=== PATIENT | male | born 1965 | race Caucasian/White ===

== ENCOUNTER 2022-01-19 06:49 | Observation (INO) | payer BC, SELFPAY ==
[2022-01-19] VITALS (9 sets, daily range): BP systolic 139–175; BP diastolic 48–113; PULSE 65–80; RESP 16–18; TEMP 36.3–36.8; O2SAT 78–99; BMI 27.6
--- NOTE | 2022-01-19 07:06 | CT_ITS ---
STUDY: CT ABDOMEN AND PELVIS WITHOUT CONTRAST REASON FOR EXAM: Male, 57 years old. SUDDEN ONSET LLQ PAIN THIS AM RADIATION DOSAGE (If Supplied By Facility): CTDIvol = ( 8.44 ) mGy, DLP = ( 427.95 ) mGycm TECHNIQUE: Transaxial images were obtained from the dome of the diaphragm to the symphysis pubis without oral contrast, and without intravenous contrast. Sagittal and coronal images were reconstructed. Individualized dose optimization techniques were used for this CT. COMPARISON: None. FINDINGS: The visualized lung bases are unremarkable. The visualized portions of the heart are within normal limits. Subcentimeter hepatic simple cysts. No required imaging follow-up needed given high likelihood of benign nature. Normal gallbladder and extrahepatic biliary system. There are multiple benign calcified granulomata of the spleen. Normal pancreas. Normal bilateral adrenal glands. Mild left hydronephrosis with a mid ureter calculus measuring 7.0 mm (image 71 series 701). There is also a 3.4 mm calcification in region of the distal left ureter (image 147 series 2). There are bilateral punctate renal calculi. No perinephric fluid collection. Normal visualized stomach. Normal small intestine. Normal colon. The appendix is visualized and appears normal. There is diffuse atherosclerotic calcification of the abdominal aorta, without a demonstrated aneurysm. There is fusiform aneurysmal enlargement of the the left (2.2 cm) more than right (2.3 cm) common iliac arteries. Normal inferior vena cava. Normal retroperitoneum. Normal urinary bladder. Normal abdominal wall. There are diffuse degenerative changes of the visualized lumbar spine. CT/Abdomen/Pelvis without Cont IMPRESSION: 1. Left mid ureter calculus (7 mm) with hydronephrosis. Possible additional 3.4 mm distal left ureteral calculus. Bilateral nephrolithiasis. 2. Bilateral common iliac artery aneurysms without evidence of rupture. Electronically Signed: Milan Cason MD ([place]) at 8:04 EDT ,
--- NOTE | 2022-01-19 07:07 | ED.VIS.GI ---
HPI HPI - GI History of Present Illness Chief Complaint: Abd Pain Detail of Chief Complaint: Dominant pain that started this morning around 4:30 AM Informant: patient Abdominal Pain/Flank Pain Current Severity: 06/10 Narrative Narrative: Patient presents to the emergency department complaint of abdominal pain that started around 4:30 AM this morning. Patient states it woke him up from sleep. He denies nausea or vomiting. He denies urinary symptoms. He denies hematuria. He is not had prior pain like this. No history of kidney stones. He has not done any lifting or straining. Denies pain radiating to his back and describes it more as left lower quadrant. Patient went to bed feeling fine. Prior similar symptoms: No PFSH PFSH Home Medications atenolol [Tenormin] 50 mg PO DAILY 04/06/16 [History Last Taken Unknown] simvastatin 20 mg PO DAILY 04/06/16 [History Last Taken Unknown] hydrochlorothiazide 25 mg DAILY 01/19/22 [History Last Taken Unknown] pantoprazole 40 mg PO DAILY 01/19/22 [History Last Taken Unknown] Allergy/AdvReac Type Severity Reaction Status Date / Time No Known Allergies Allergy Verified 04/06/16 13:25 Social History Smoking Status: Current every day smoker tobacco type: cigarettes ROS ROS ED Constitutional Constitutional ED: Reports systems reviewed and no addt'l complaints, except as documented; Denies body ache(s), change in weight or chills Eyes Eyes: Denies acute decrease in peripheral vision, change in vision, double vision or loss of vision ENT ENT ED: Reports none; Denies ear pain, lip swelling, loss taste/smell, neck pain, otalgia or sore throat Cardiovascular Cardiovascular: Reports none; Denies abdominal pain, chest pain with activity, leg edema, lightheadedness, palpitations, rapid heart rate or syncope Respiratory/Chest Respiratory/Chest: Reports none; Denies change in mental status, dry cough, dyspnea, hemoptysis, shortness of breath at rest or shortness of breath with exertion Gastrointestinal Gastrointestinal: Reports none and abdominal pain; Denies change in stool character, diarrhea, hematemesis, hematochezia, melena, rectal bleeding or vomiting Genitourinary Genitourinary ED: Reports none; Denies abdominal discomfort, anuria, dysuria, genital pain or polyuria Musculoskeletal Musculoskeletal: Reports none; Denies arthralgias, back pain, difficulty walking, extremity pain, muscle weakness or myalgias Integumentary Reports none; Denies abscess or rash Neurologic Neurologic: Reports none; Denies abnormal gait, confusion, focal weakness, frequent falls, headache(s), loss of vision, numbness, paresthesias, radicular pain, vertigo or weakness Psychiatric Psychiatric: Reports systems reviewed and no addt'l complaints, except as documented and none; Denies behavioral changes, confusion, difficulty concentrating, hallucinations, suicidal ideation, tactile hallucinations or visual hallucinations Endocrine Endocrinology: Denies none, cold intolerance, excessive sweating, fatigue or heat intolerance Hematologic/Lymphatic Hematologic/Lymphatic: Reports none; Denies anemia, easy bleeding or easy bruising Allergic/Immunologic Allergic/Immunologic ED: Denies as per HPI, none, lip swelling, mouth swelling, throat swelling, tongue swelling or hives EXAM Physical Exam Const Vital Signs: 01/19/22 06:50 01/19/22 09:14 Temperature 97.4 F L Temperature Source Temporal Pulse Rate 80 72 Respiratory Rate 17 16 Blood Pressure 175/113 H 139/48 H Blood Pressure Mean 133 78 Pulse Ox 97 97 Oxygen Delivery Method Room Air Room Air Positive well nourished and well developed General Appearance ED: well developed and NAD HEENT Reports TM's clear and moist mucous membranes normocephalic and atraumatic; Negative for trauma or tenderness Tympanic Membrane ED: Yes TM's clear Eyes PERRL and EOMs intact bilaterally General Eye ED: Negative for pale conjunctiva or scleral icterus Neck no lymphadenopathy, supple and no JVD General: Negative for tenderness Chest Wall inspection of chest normal and palpation of chest normal Chest: Negative for tenderness Resp normal respiratory effort and clear to auscultation bilaterally Effort and Inspection: Negative for respiratory distress or pain with movement Auscultation: Negative for rhonchi, wheezes or diminished lung sounds Cardio regular rate, regular rhythm, S1 normal heart sound, S2 normal heart sound and no murmurs Peripheral Pulses: pulses 2+ throughout GI normal to inspection, nondistended, normoactive bowel sounds, soft to palpation, non-distended and no masses GI Narrative: Patient has tenderness palpation over the left lower abdomen into the left pelvis. No hernias palpated. Patient has guarding. There is no rebound, rigidity, peritoneal signs. Palpation: tender Back/Spine no CVA tenderness and no thoracic nor lumbar tenderness Extremity normal to inspection General Extremety ED: Negative for edema General Extremity: Negative for edema Neuro oriented x3, CN's II-XII intact bilaterally, no sensory deficits noted and gait normal Sensorium / Orientation: awake, alert, oriented to person, oriented to place and oriented to time Motor Exam: strength 5/5 throughout and strength abnormal Psych mental status grossly normal Skin no rashes or lesions noted and no wounds MDM MDM MDM Narrative Medical decision making narrative: IV line established on arrival. Patient was medicated Dilaudid, Toradol, and Zofran. Patient had good pain relief with that. CT scan obtained showed 3.4 mm left UVJ stone as well as a 7 mm left mid ureter stone. Case was discussed with urologist who will admit patient for definitive care. Lab Data Attestation: I reviewed the patient's lab results. Labs: Laboratory Results - last 24 hr 01/19/22 01/19/22 01/19/22 06:55 06:55 06:55 WBC 7.0 RBC 4.68 Hgb 15.2 Hct 43.0 MCV 91.9 MCH 32.5 H MCHC 35.3 RDW Std Deviation 45.6 H RDW Coeff of Hernandez 13.5 Plt Count 193 MPV 9.6 Immature Gran % (Auto) 0.400 Neut % (Auto) 65.8 Lymph % (Auto) 22.0 [place] % (Auto) 8.2 Eos % (Auto) 2.9 Baso % (Auto) 0.7 Absolute Neuts (auto) 4.6 Absolute Lymphs (auto) 1.53 Nucleated RBC % 0 Sodium 141 Potassium 3.4 L Chloride 106 Carbon Dioxide 27.0 Anion Gap 8 BUN 23 H Creatinine 0.93 Estim Creat Clear Calc 89.75 Est GFR (MDRD) Af Amer 109 Est GFR (MDRD) Non-Af 90 BUN/Creatinine Ratio 24.7 H Glucose 152 H Lactic Acid 1.4 Calcium 8.7 Urine Color Urine Clarity Urine pH Ur Specific [place] Urine Protein Urine Glucose (UA) Urine Ketones Urine Occult Blood Urine Nitrite Urine Bilirubin Urine Urobilinogen Ur Leukocyte Esterase Urine RBC Urine WBC Ur Squamous Epith Cells Urine Bacteria Urine Mucus 01/19/22 07:20 WBC RBC Hgb Hct MCV MCH MCHC RDW Std Deviation RDW Coeff of Hernandez Plt Count MPV Immature Gran % (Auto) Neut % (Auto) Lymph % (Auto) [place] % (Auto) Eos % (Auto) Baso % (Auto) Absolute Neuts (auto) Absolute Lymphs (auto) Nucleated RBC % Sodium Potassium Chloride Carbon Dioxide Anion Gap BUN Creatinine Estim Creat Clear Calc Est GFR (MDRD) Af Amer Est GFR (MDRD) Non-Af BUN/Creatinine Ratio Glucose Lactic Acid Calcium Urine Color Yellow Urine Clarity Clear Urine pH 6.0 Ur Specific [place] 1.025 Urine Protein 30 H Urine Glucose (UA) Normal Urine Ketones 5 H Urine Occult Blood 150 H Urine Nitrite Negative Urine Bilirubin Negative Urine Urobilinogen 1 H Ur Leukocyte Esterase Negative Urine RBC 5-10 SEEN Urine WBC 0 SEEN Ur Squamous Epith Cells 0 SEEN Urine Bacteria 0 SEEN Urine Mucus 0 SEEN Radiography Diagnostic Testing: Clinical Impression(s) from Imaging Studies Abdomen/Pelvis CT 01/19/22 07:06 IMPRESSION: 1. Left mid ureter calculus (7 mm) with hydronephrosis. Possible additional 3.4 mm distal left ureteral calculus. Bilateral nephrolithiasis. 2. Bilateral common iliac artery aneurysms without evidence of rupture. Electronically Signed: Milan Cason MD (Bro[place]) at 8:04 EDT Reading Location ID and State: [facility] / [place] , Service support , Discharge Plan Triage Chief Complaint: Abd Pain ED Provider: Jose Santiago Dx/Rx/DC Orders Prescriptions: No Action simvastatin 20 MG tablet 20 mg PO DAILY RF: 0 atenolol [Tenormin] 50 MG tablet 50 mg PO DAILY RF: 0 pantoprazole 40 mg tablet,delayed release (DR/EC) 40 mg PO DAILY RF: 0 hydrochlorothiazide 25 mg tablet 25 mg DAILY RF: 0 Primary Care Provider: Delma Lopez
[2022-01-19] MEDS: 0.9% Normal Saline 1,000 ML 125 ML IV (07:20)
[2022-01-19] MEDS: Ketorolac 15 MG/ML Vial IV (07:21)
[2022-01-19] MEDS: Ondansetron 4 MG/2 ML Vial IV ×2 (07:21→23:28)
[2022-01-19] MEDS: HYDROmorphone 1 MG/ML Syringe IV (07:21)
[2022-01-19 07:22] LABS: Absolute Lymphocyte Count 1.53 X10^3/uL (0.83-4.51); Absolute Neutrophil Count 4.6 X10^3/uL (2.0-7.7); Basophil# 0.05 X10^3/uL; Basophil% 0.7 % (0-1); Eosinophils% 2.9 % (0-5); Hemoglobin 15.2 g/dL (13.0-16.5); Lymphocyte # 1.53 X10^3/ul (0.83-4.51); Mean Corp Hgb Conc 35.3 g/dL (32-36); Mean Corpuscular Hgb 32.5 pg (27.0-32.0); Mean Corpuscular Volume 91.9 fL (80-94); Mean Platelet Vol. 9.6 fl (6.2-12.0); Monocyte# 0.57 X10^3/uL; Monocyte% 8.2 % (0-10); NRBC Flagged by Analyzer 0 % (0-5); Neutrophil # 4.58 X10^3/uL (2.7-7.7); Neutrophil % 65.8 % (47-70); Platelet Count 193 K/mm3 (150-450); RBC Distribution Width CV 13.5 % (11.6-14.6); RBC Distribution Width SD 45.6 fl (35.1-43.9); Red Blood Count 4.68 M/mm3 (4.6-6.2)
[2022-01-19 07:26] LABS: Bacteria 0 SEEN /hpf (None Seen); Mucous, Urine 0 SEEN /hpf (<or=2+); Squamous Epithelial Cells - UA 0 SEEN /hpf (0-5); White Blood Cells 0 SEEN /hpf (0-5)
[2022-01-19 07:34] LABS: Color, Urine Yellow (Yellow); Glucose, Dipstick Normal (Normal); Ketone-Dipstick 5 mg/dl (Negative); Leukocyte Esterase-Dipstick Negative /ul (Negative); Nitrite-Dipstick Negative (Negative); Occult Blood-Urine 150 /ul (Negative); Protein-Dipstick 30 mg/dl (Negative); Specific Gravity, Urine 1.025 (1.002-1.030); Urine Bilirubin Dipstick Negative (Negative); Urine Clarity Clear (Clear); Urine Urobilinogen 1 mg/dl (Normal)
[2022-01-19 07:36] LABS: Anion Gap 8 (5-15); BUN 23 mg/dL (7-18); BUN/Creat Ratio 24.7 RATIO (10-20); Calcium,Total 8.7 mg/dL (8.5-10.1); Chloride 106 mmol/L (98-107); Creatinine, Serum 0.93 mg/dL (0.70-1.30); EST Glomerular Filtration Rate 90 mL/min (>60); Est Glom Filt Rate - Afr Amer 109 mL/min (>60); Estimated Creatinine Clearance 89.75 ml/min; Glucose 152 mg/dL (74-106); Potassium 3.4 mmol/L (3.5-5.1); Sodium Level 141 mmol/L (136-145)
[2022-01-19 07:41] LABS: Red Blood Cells-Urine 5-10 SEEN /hpf (0-5)
[2022-01-19 07:43] LABS: Lactic Acid 1.4 mmol/L (0.4-1.9)
--- NOTE | 2022-01-19 10:51 | EKG12_ITS ---
Test Reason : PREOP Blood Pressure : / mmHG Vent. Rate : 081 BPM Atrial Rate : 081 BPM P-R Int : 136 ms QRS Dur : 096 ms QT Int : 414 ms P-R-T Axes : 031 050 030 degrees QTc Int : 480 ms Normal sinus rhythm Prolonged QT Abnormal ECG Confirmed by NALDO CHAVEZ, TERRENCE ([id number]), state editor EVER TREJO ([id number]) on 01/23/2022 11:40:15 AM Referred By: KYM BARBOSA Confirmed By:TERRENCE HITCHCOCK MD
[2022-01-19] MEDS: 0.9% Normal Saline 1,000 ML 100 ML IV ×2 (11:45→21:55)
[2022-01-19] MEDS: 0.9% Saline Lock 10 ML Syringe IV ×2 (14:39→23:28)
[2022-01-19] MEDS: Morphine 2 MG/ML Syringe IV ×2 (14:39→23:28)
--- NOTE | 2022-01-19 17:34 | PCM.HP.STD ---
HPI - General General Date of Admission: 01/19/22 HPI Narrative REBA AARON, is a 57 M who presents with a large stone in the mid left ureter, patient admitted for pain control plan for surgery with left ESWL and stent tomorrow. PFSH Home Medications atenolol [Tenormin] 50 mg PO DAILY 04/06/16 [History Last Taken Unknown] simvastatin 20 mg PO DAILY 04/06/16 [History Last Taken Unknown] hydrochlorothiazide 25 mg DAILY 01/19/22 [History Last Taken Unknown] pantoprazole 40 mg PO DAILY 01/19/22 [History Last Taken Unknown] Allergy/AdvReac Type Severity Reaction Status Date / Time No Known Allergies Allergy Verified 04/06/16 13:25 Social History Smoking Status: Current every day smoker tobacco type: cigarettes Vital Signs Vital Signs Vital Signs: 01/19/22 06:50 01/19/22 09:14 01/19/22 09:43 Temperature 97.4 F L 97.4 F L Temperature Source Temporal Temporal Pulse Rate 80 72 72 Pulse Strength Respiratory Rate 17 16 16 Blood Pressure 175/113 H 139/48 H 139/48 H Blood Pressure Mean 133 78 78 Blood Pressure Source Blood Pressure Position Blood Pressure Location Pulse Ox 97 97 97 Oxygen Delivery Method Room Air Room Air Room Air 01/19/22 09:58 01/19/22 10:00 01/19/22 10:49 Temperature 98.1 F Temperature Source Oral Pulse Rate 74 77 Pulse Strength Normal (2+) Respiratory Rate 18 Blood Pressure 155/80 H Blood Pressure Mean 105 Blood Pressure Source Monitor Blood Pressure Position Semi-Fowlers Blood Pressure Location Right Arm Pulse Ox 99 Oxygen Delivery Method Room Air Room Air 01/19/22 14:43 Temperature 98.3 F Temperature Source Oral Pulse Rate 74 Pulse Strength Respiratory Rate 18 Blood Pressure 139/98 H Blood Pressure Mean 111 Blood Pressure Source Monitor Blood Pressure Position Semi-Fowlers Blood Pressure Location Right Arm Pulse Ox 99 Oxygen Delivery Method Room Air Weight Weight: 84.9 kg Body Mass Index (BMI) 27.6 Results Lab / Micro Data Result Diagrams: 01/19/22 06:55 01/19/22 06:55 Labs: Laboratory Results - last 24 hr 01/19/22 06:55: WBC 7.0, RBC 4.68, Hgb 15.2, Hct 43.0, MCV 91.9, MCH 32.5 H, MCHC 35.3, RDW Std Deviation 45.6 H, RDW Coeff of Hernandez 13.5, Plt Count 193, MPV 9.6, Immature Gran % (Auto) 0.400, Neut % (Auto) 65.8, Lymph % (Auto) 22.0, [place] % (Auto) 8.2, Eos % (Auto) 2.9, Baso % (Auto) 0.7, Absolute Neuts (auto) 4.6, Absolute Lymphs (auto) 1.53, Nucleated RBC % 0 01/19/22 06:55: Sodium 141, Potassium 3.4 L, Chloride 106, Carbon Dioxide 27.0, Anion Gap 8, BUN 23 H, Creatinine 0.93, Estim Creat Clear Calc 89.75, Est GFR (MDRD) Af Amer 109, Est GFR (MDRD) Non-Af 90, BUN/Creatinine Ratio 24.7 H, Glucose 152 H, Calcium 8.7 01/19/22 06:55: Lactic Acid 1.4 01/19/22 07:20: Urine Color Yellow, Urine Clarity Clear, Urine pH 6.0, Ur Specific [place] 1.025, Urine Protein 30 H, Urine Glucose (UA) Normal, Urine Ketones 5 H, Urine Occult Blood 150 H, Urine Nitrite Negative, Urine Bilirubin Negative, Urine Urobilinogen 1 H, Ur Leukocyte Esterase Negative, Urine RBC 5-10 SEEN, Urine WBC 0 SEEN, Ur Squamous Epith Cells 0 SEEN, Urine Bacteria 0 SEEN, Urine Mucus 0 SEEN Micro: Microbiology 01/19/22 Unknown Nasal Secretion SARS-CoV-2 Antigen (Rapid) - Final Radiology Impression Abdomen/Pelvis CT 01/19/22 07:06 IMPRESSION: 1. Left mid ureter calculus (7 mm) with hydronephrosis. Possible additional 3.4 mm distal left ureteral calculus. Bilateral nephrolithiasis. 2. Bilateral common iliac artery aneurysms without evidence of rupture. Electronically Signed: Milan Cason MD ([place]) at 8:04 EDT ,
--- NOTE | 2022-01-19 20:40 | NURSING ---
Pt BP 150/99 & C/O some nausea. Home meds not ordered here. Dr Jackson notified & new order received to resume pt home meds.
[2022-01-19] MEDS: hydroCHLOROthiazide 25 MG Tablet PO (22:07)
[2022-01-19] MEDS: Ciprofloxacin 500 MG Tablet PO (22:07)
[2022-01-20 06:05] VITALS: BP 149/99; PULSE 65; RESP 16; TEMP 36.6; O2SAT 95
[2022-01-20 06:27] LABS: Absolute Lymphocyte Count 1.91 X10^3/uL (0.83-4.51); Absolute Neutrophil Count 4.3 X10^3/uL (2.0-7.7); Basophil# 0.03 X10^3/uL; Basophil% 0.4 % (0-1); Eosinophil# 0.23 X10^3/uL; Eosinophils% 3.3 % (0-5); Hematocrit 39.4 % (40-54); Hemoglobin 13.6 g/dL (13.0-16.5); Lymphocyte # 1.91 X10^3/ul (0.83-4.51); Mean Corp Hgb Conc 34.5 g/dL (32-36); Mean Corpuscular Hgb 32.2 pg (27.0-32.0); Mean Corpuscular Volume 93.1 fL (80-94); Mean Platelet Vol. 9.8 fl (6.2-12.0); Monocyte# 0.55 X10^3/uL; Monocyte% 7.8 % (0-10); NRBC Flagged by Analyzer 0 % (0-5); Neutrophil # 4.33 X10^3/uL (2.7-7.7); Neutrophil % 61.2 % (47-70); Platelet Count 157 K/mm3 (150-450); RBC Distribution Width CV 14.2 % (11.6-14.6); Red Blood Count 4.23 M/mm3 (4.6-6.2); White Blood Count 7.1 K/mm3 (4.4-11.0)
[2022-01-20 06:53] LABS: Anion Gap 5 (5-15); BUN 18 mg/dL (7-18); BUN/Creat Ratio 23.7 RATIO (10-20); Chloride 108 mmol/L (98-107); Creatinine, Serum 0.76 mg/dL (0.70-1.30); EST Glomerular Filtration Rate 113 mL/min (>60); Est Glom Filt Rate - Afr Amer 137 mL/min (>60); Estimated Creatinine Clearance 109.82 ml/min; Glucose 106 mg/dL (74-106); Potassium 3.5 mmol/L (3.5-5.1); Sodium Level 139 mmol/L (136-145)
[2022-01-20] MEDS: 0.9% Normal Saline 1,000 ML 100 ML IV ×2 (08:08→15:45)
[2022-01-20] MEDS: Pantoprazole Sodium 40 MG Tablet PO (08:29)
[2022-01-20] MEDS: Ciprofloxacin 500 MG Tablet PO (08:30)
--- NOTE | 2022-01-20 11:40 | RAD_ITS ---
INDICATION: Preop EXAMINATION/TECHNIQUE: X-RAY - XR Abdomen 1 View COMPARISON: 01/19/2022. FINDINGS: BOWEL GAS PATTERN: Non-obstructive. No bowel or stomach distention. FREE AIR: Not assessed on a single supine view. ORGANOMEGALY: Not seen. CALCIFICATIONS: No abnormal calcifications observed. LOWER CHEST: No acute pathology. BONES AND SOFT TISSUES: No acute pathology. RAD/Abdomen Single View IMPRESSION: Non-obstructive bowel gas pattern. Electronically Signed: Olivier Galindo MD at 12:25 EDT ,
[2022-01-20 11:59] VITALS: BP 149/103; PULSE 70; RESP 16; TEMP 36.6; O2SAT 98; BMI 27.6
--- NOTE | 2022-01-20 15:02 | PCM.DC ---
Discharge Instructions Diet Discharge Diet: No restrictions Activity Discharge Activity: Return to Normal Activity and May Not Drive (while taking narcotic pain medications.) Dressing / Incision Call your doctor if you observe: Fever of 101 or Higher Follow Up Care Please Follow Up With: Josr Jackson MD When: Call [phone] for an appointment Test Results: Test results from this visit will be discussed in further detail at your follow-up appointment, if applicable. Discharge Plan Admission Admit Date/Time: 01/19/22 10:47 Primary Reason for Your Visit: kidney stone Attending Provider: Josr Jackson Primary Care Provider: Delma Lopez Discharge Orders/Prescriptions Prescriptions: New ciprofloxacin HCl [Cipro] 500 mg tablet 500 mg PO BID 7 Days Qty: 6 RF: 0 oxycodone-acetaminophen 5-325 mg tablet 1 tab PO Q6H PRN (Reason: pain) 7 Days Qty: 14 RF: 0 Continued simvastatin 20 MG tablet 40 mg PO DAILY RF: 0 pantoprazole 40 mg tablet,delayed release (DR/EC) 40 mg PO DAILY RF: 0 hydrochlorothiazide 25 mg tablet 25 mg DAILY RF: 0 Referrals / Follow Up: Josr Jackson MD [STAFF PHYSICIAN] - Delma Lopez MD [Primary Care Provider] -
--- NOTE | 2022-01-20 15:02 | PCM.OPRPT ---
Report of Operation Date of Procedure: 01/20/22 Pre-Operative Diagnosis: left ureteral calculi Post-Operative Diagnosis: same Surgery/Procedure Performed:: cystoscopy and left stent and left ESWL Description of Surgical Findings:: Patient presents to the hospital for treatment of a kidney stone with shockwave lithotripsy. In the preoperative area and x-ray was done to confirm the location of the stone. The x-ray was reviewed and the stone location was reviewed. In the preoperative setting I spoke with the patient regarding the treatment of the stone how the treatment would be conducted and the expectations after surgery. The patient understands there is a risk of bleeding and infection. Also discussed the very rare risk of hematoma or damage to the kidney. We also discussed the risk that the shockwave machine will fail to break the stone adequately and that the patient may need other surgical procedures. We also discussed the possibility that the patient may need a stent after the procedure. After reviewing the procedure with the patient, the patient is signed the consent form all the patient's questions were addressed and was taken back to the operating room for treatment of a kidney stone. Patient was taken back to the operating room, patient was identified by the nursing staff, we identified the side of the treatment and the patient side of treatment had been marked by my initials. The patient underwent general anesthetic and was placed supine on the lithotripter table. We then used fluoroscopy to identify the stone on the left side.The urethra and genitals were prepped and draped in usual sterile fashion. Using a 21 Nepali rigid cystourethroscope the entire length of the urethra was normal then went into the bladder. Identified the trigone the left and right ureteral orifice. I then cannulated the left orifice and advanced a wire up into the kidney. I then backloaded a 5 Nepali open ended catheter over the wire and injected contrast to delineate the anatomy. After the retrograde was performed I then used fluoroscopic images and guidance to advanced a wire up into the kidney and over the 0.038 glidewire I advanced a 6 Nepali by 26 cm double pigtail stent. I then pulled the 0.038 Glidewire off and the stent coiled in the kidney bladder good position. The bladder was then drained. We confirmed the position of the stent by fluoroscopy. We then positioned the patient under the lithotripter and we used triangulation technique to identify the location of the stone and then we made sure that the stone was engaged in the F2 focal point of F2 Donier lithoprior machine. Once the patient was positioned appropriately and the stone was identified and placed in the F2 focal point of the lithotripter machine we then proceeded with shockwave lithotripsy. In the beginning the shockwave was delivered at a rate of 90 shocks per minute, we monitor the EKG for any ectopy. The power was slowly increased to 5 kV and subsequently at the 7 kV. We then proceeded with the treatment we move the therapy had around during the treatment to make sure the stone stayed in the F2 focal point during the entire treatment and after 3000 shockwaves were delivered to the stone under fluoroscopic guidance the treatment was completed. The patient was given instructions to call the office to make an a follow-up appointment with an xray to evaluate the success of the treatment, pateint understands that its possible the stones may need another procedure.At this point the patient's anesthetic was reversed patient was extubated and taken back to the PACU in stable condition. Type of Anesthesia: General Drains: stent Admit VTE Documentation VTE Present on Admission: No VTE Mechan Device Prophylaxis: SCD's VTE Pharm Prophylaxis ordered?: No
[2022-01-20 15:19] VITALS: BP 149/103; BP 155/103; PULSE 82; RESP 16; TEMP 36.4; O2SAT 100
[2022-01-20 15:31] VITALS: BP 149/103; BP 163/107; PULSE 71; RESP 16; O2SAT 97
[2022-01-20 15:32] VITALS: BP 149/103; BP 157/104; PULSE 74; RESP 73; TEMP 36.5; O2SAT 100
[2022-01-20] MEDS: hydroCHLOROthiazide 25 MG Tablet PO (15:53)
== END 2022-01-20 17:25 | disposition home or self-care (01) ==
LOC: ED 09:24 → MS3 11:01
PROVIDERS: Admitting Provider Urology; Emergency Provider Emergency Medicine; PCP Internal Medicine; Visit Provider Urology
PROC: (CPT 50590; principal; 2022-01-20 13:05)
DX: N13.2 Hydronephrosis with renal and ureteral calculous obstruction (principal); F17.210 Nicotine dependence, cigarettes, uncomplicated; R94.31 Abnormal electrocardiogram [ECG] [EKG]
CPT/HCPCS: 00873; 36415; 74018; 74176; 80048; 81001; 83605; 85025; 87426; 93005; 96361; 96374; 96375; 96376; 99218; 99284; 99406; J7030; A4216; C1769; C2617; G0378; J2405

== ENCOUNTER 2024-06-29 04:39 | Emergency (ER) | payer OTHER, SELFPAY ==
[2024-06-29 04:40] VITALS: BP 145/86; PULSE 91; RESP 16; TEMP 36.4; O2SAT 96
[2024-06-29 04:47] VITALS: BMI 27.0
[2024-06-29] MEDS: Morphine 4 MG/ML Syringe IV (05:06)
[2024-06-29] MEDS: Ondansetron 4 MG/2 ML Vial IV (05:07)
[2024-06-29] MEDS: 0.9% Normal Saline (1000mL) 1,000 ML 999 ML IV (05:07)
[2024-06-29 05:16] LABS: Absolute Lymphocyte Count 1.36 X10^3/uL (0.83-4.51); Absolute Neutrophil Count 4.9 X10^3/uL (2.0-7.7); Basophil# 0.04 X10^3/uL; Basophil% 0.6 % (0-1); Eosinophil# 0.21 X10^3/uL; Eosinophils% 2.9 % (0-5); Hematocrit 43.4 % (40-54); Hemoglobin 15.1 g/dL (13.0-16.5); Lymphocyte # 1.36 X10^3/ul (0.83-4.51); Lymphocyte % 18.8 % (19-41); Mean Corp Hgb Conc 34.8 g/dL (32-36); Mean Corpuscular Hgb 32.9 pg (27.0-32.0); Mean Corpuscular Volume 94.6 fL (80-94); Mean Platelet Vol. 9.9 fl (6.2-12.0); Monocyte# 0.74 X10^3/uL; Monocyte% 10.2 % (0-10); NRBC Flagged by Analyzer 0 % (0-5); Neutrophil # 4.85 X10^3/uL (2.7-7.7); Neutrophil % 67.1 % (47-70); Platelet Count 230 K/mm3 (150-450); RBC Distribution Width CV 13.3 % (11.6-14.6); RBC Distribution Width SD 46.9 fl (35.1-43.9); Red Blood Count 4.59 M/mm3 (4.6-6.2); White Blood Count 7.2 K/mm3 (4.4-11.0)
--- NOTE | 2024-06-29 05:18 | CT_ITS ---
INDICATION: LEFT FLANK PAIN HX KS COMPARISON: 01/19/[address] A radiation dose optimization technique was used for this scan. RADIATION DOSAGE (If Supplied By Facility): CTDIvol/DLP = ( 8.26 ) / ( 431.13 ) mGy/mGycm FINDINGS: Noncontrast serial CT axial images through the abdomen and pelvis with coronal and sagittal reformatted series. PANCREAS: No peripancreatic fat stranding. BOWEL/MESENTERY: No dilated bowel loops. No significant free fluid. No free air. GALLBLADDER: No pericholecystic fat stranding. LIVER/STOMACH: Few hepatic cysts. URINARY COLLECTING SYSTEM/ KIDNEYS: 6 mm left ureteropelvic junction obstructing calculus. No significant renal parenchymal abnormality. APPENDIX: Normal caliber gas containing appendix. AORTA/GREAT VESSELS: Infrarenal aortic aneurysm formation measuring up to 31 x 30 mm. 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 LUNG BASES: Unremarkable. BONES: Unremarkable for age. CT/Abdomen/Pelvis without Cont IMPRESSION: 6 mm left UPJ obstructing calculus. Infrarenal aortic aneurysm formation measuring up to 31 x 30 mm. 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 Electronically Signed: Raymundo Tello MD at 7:13 EDT ,
[2024-06-29 05:29] LABS: Anion Gap 6 (5-15); BUN 22 mg/dL (7-18); BUN/Creat Ratio 20.4 RATIO (10-20); Calcium,Total 9.1 mg/dL (8.5-10.1); Chloride 107 mmol/L (98-107); Creatinine, Serum 1.08 mg/dL (0.70-1.30); EST Glomerular Filtration Rate 75 mL/min (>60); Est Glom Filt Rate - Afr Amer 91 mL/min (>60); Estimated Creatinine Clearance 75.46 ml/min; Glucose 137 mg/dL (74-106); Potassium 4.2 mmol/L (3.5-5.1); Sodium Level 138 mmol/L (136-145)
[2024-06-29] MEDS: Ketorolac 30 MG/ML Syringe IV (05:54)
[2024-06-29 06:02] LABS: Bacteria 0 SEEN /hpf (None Seen); Mucous, Urine 0 SEEN /hpf (<or=2+); Squamous Epithelial Cells - UA 0 SEEN /hpf (0-5); White Blood Cells 0 SEEN /hpf (0-5)
[2024-06-29 06:03] LABS: Glucose, Dipstick Normal (Normal); Ketone-Dipstick Negative (Negative); Leukocyte Esterase-Dipstick Negative /ul (Negative); Nitrite-Dipstick Negative (Negative); Occult Blood-Urine 25 /ul (Negative); Protein-Dipstick Negative (Negative); Specific Gravity, Urine 1.015 (1.002-1.030); Urine Bilirubin Dipstick Negative (Negative); Urine Urobilinogen Normal (Normal); Urine pH 6.5 (5.0 - 8.0)
[2024-06-29 06:11] LABS: Color, Urine Yellow (Yellow); Red Blood Cells-Urine 0-5 SEEN /hpf (0-5); Urine Clarity Clear (Clear)
--- NOTE | 2024-06-29 07:11 | EDS_ITS ---
HPI History of Present Illness Chief Complaint: Back Informant: patient Narrative Narrative: Patient is a 59-year-old male with past medical history of hypertension and kidney stone. He states he was last in the hospital in 2021 secondary to multiple stones that required surgical procedures. He states since that time he has developed more stones but is able to pass them spontaneously. He reports he noticed some pain in his left-sided low back around 10 PM last night without trauma or excessive activity. He states the pain is sharp and intermittent and wraps towards the anterior abdomen. He reports that the pain feels very similar nature to his past bouts of kidney stone. He reports taking [id number] medication but throughout the night the pain is continued to worsen and secondary to this he comes in for evaluation [facility] Medical History (Updated 06/29/24 @ 22:[address] Ozzy Barboza, DO) GERD (gastroesophageal reflux disease) Hypertension Kidney stone Home Medications ?Medication ?Instructions ?Recorded ?Last Taken ?Type simvastatin 20 mg tablet 40 mg PO DAILY 04/06/16 Unknown History hydrochlorothiazide 25 mg tablet 25 mg PO DAILY 01/19/22 Unknown History pantoprazole 40 mg tablet,delayed 40 mg PO DAILY 01/19/22 Unknown History release cephalexin 500 mg capsule 500 mg PO TID 7 days #21 caps 06/29/24 Unknown Rx ketorolac 10 mg tablet 10 mg PO 4X/DAY PRN pain 5 days 06/29/24 Unknown Rx #20 tabs oxycodone-acetaminophen 5 mg-325 1 tab PO Q6H PRN pain 3 days #12 06/29/24 Unk nown Rx mg tablet (Percocet) tabs tamsulosin 0.4 mg capsule (Flomax) 0.4 mg PO DAILY 14 days #14 caps 06/29/24 Unknown Rx Allergy/AdvReac Type Severity Reaction Status Date / Time rosuvastatin (From Crestor) AdvReac Mild SWELLING Verified 06/29/24 04:44 Family History no significant family his Social History Smoking Status: Current every day smoker tobacco type: cigarettes ROS ROS ED Constitutional Constitutional ED: Denies chills or fever(s) ENT ENT ED: Denies sore throat Cardiovascular Cardiovascular: Denies chest pain Respiratory/Chest Respiratory/Chest: Denies cough or dyspnea Gastrointestinal Gastrointestinal: Reports abdominal pain; Denies diarrhea, nausea or vomiting Genitourinary Genitourinary ED: Denies dysuria or hematuria Musculoskeletal Musculoskeletal: Reports back pain Integumentary Denies rash Neurologic Neurologic: Denies headache(s) Hematologic/Lymphatic Hematologic/Lymphatic: Denies easy bleeding or easy bruising EXAM Physical Exam Const Vital Signs: 06/29/24 04:40 06/29/24 07:36 Temperature 97.6 F L 97.6 F L Temperature Source Oral Pulse Rate 91 75 Respiratory Rate 16 16 Blood Pressure 145/86 H 145/95 H Blood Pressure Mean 105 111 Pulse Ox 96 97 Oxygen Delivery Method Room Air Positive well nourished and well developed General Appearance ED: well developed; Negative for pallor HEENT HEENT Narrative: Normocephalic atraumatic Eyes PERRL and EOMs intact bilaterally General Eye ED: Negative for scleral icterus Neck supple Resp normal respiratory effort and clear to auscultation bilaterally Cardio regular rate and regular rhythm Cardio Narrative: Heart is regular rate and rhythm without murmurs rubs or gallop Radial and carotid pulses are equal and symmetric GI soft to palpation, non-distended and no masses GI Narrative: Abdomen is soft and nondistended with normal active bowel sounds. There is mild pain with palpation along the left upper lateral abdomen without voluntary guarding or rigidity. No pulsatile mass or fluid wave Auscultation: normoactive bowel sounds Palpation: soft Back/Spine Back/Spine Narrative: Positive left CVA pain noted Extremity normal to inspection and no clubbing, cyanosis or edema Neuro oriented x3, CN's II-XII intact bilaterally and no sensory deficits noted Sensorium / Orientation: alert Motor Exam: strength 5/5 throughout Psych mental status grossly normal Skin no rashes or lesions noted and no wounds General Skin Exam: Negative for jaundice or pallor MDM MDM MDM Narrative Medical decision making narrative: Patient arrived to ER hypertensive but has a past medical history of this. He reported spontaneous onset of left-sided flank/abdominal pain that was intermittent in nature and felt similar to his previous bouts of kidney stone. Differential diagnosis is for kidney stone versus UTI versus pyelonephritis versus acute kidney injury. Secondary to this basic labs with urine sample and a noncontrast CT were ordered. Labs revealed no signs of urinary tract infection or acute kidney injury or severe electrolyte abnormality. CT scan confirmed a 6 mm stone in the proximal ureter on the left consistent with his symptoms. Of note it did document a incidental aortic aneurysm but this is just at 3 cm and he does not have findings to suggest any type of dissection so there is no need for CTA and he can have this watched as an outpatient. At this time the pain has resolved with morphine and Toradol he does not have MIN or urosepsis. He does not endorse any type of loss of bowel or bladder control or IV drug use going against cauda equina or epidural abscess. Therefore there is no need for emergent urology consultation or admission and he can be discharged home with symptomatic care and outpatient urology follow-up History & Record Review Discussion w/independent historian: Patient Lab Data Attestation: I reviewed the patient's lab results. Labs: Laboratory Results - last 24 hr 06/29/24 06/29/24 05:06 05:32 WBC 7.2 RBC 4.59 L Hgb 15.1 Hct 43.4 MCV 94.6 H MCH 32.9 H MCHC 34.8 RDW Std Deviation 46.9 H RDW Coeff of Hernandez 13.3 Plt Count 230 MPV 9.9 Immature Gran % (Auto) 0.400 Neut % (Auto) 67.1 Lymph % (Auto) 18.8 L [place] % (Auto) 10.2 H Eos % (Auto) 2.9 Baso % (Auto) 0.6 Absolute Neuts (auto) 4.9 Absolute Lymphs (auto) 1.36 Nucleated RBC % 0 Sodium 138 Potassium 4.2 Chloride 107 Carbon Dioxide 26.0 Anion Gap 6 BUN 22 H Creatinine 1.08 Estim Creat Clear Calc 75.46 Est GFR (MDRD) Af Amer 91 Est GFR (MDRD) Non-Af 75 BUN/Creatinine Ratio 20.4 H Glucose 137 H Calcium 9.1 Urine Color Yellow Urine Clarity Clear Urine pH 6.5 Ur Specific [place] 1.015 Urine Protein Negative Urine Glucose (UA) Normal Urine Ketones Negative Urine Occult Blood 25 H Urine Nitrite Negative Urine Bilirubin Negative Urine Urobilinogen Normal Ur Leukocyte Esterase Negative Urine RBC 0-5 SEEN Urine WBC 0 SEEN Ur Squamous Epith Cells 0 SEEN Urine Bacteria 0 SEEN Urine Mucus 0 SEEN Radiography Diagnostic Testing: Clinical Impression(s) from Imaging Studies Abdomen/Pelvis CT 06/29/24 05:18 IMPRESSION: 6 mm left UPJ obstructing calculus. Infrarenal aortic aneurysm formation measuring up to 31 x 30 mm. 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 Electronically Signed: Raymundo Tello MD at 7:13 EDT , Discharge Plan Triage Chief Complaint: Back ED Provider: Ozzy Barboza Dx/Rx/DC Orders Clinical Impression: Kidney stone on left side, Renal colic, Hypertension Instructions: ED Kidney Stone with Pain Prescriptions: New oxycodone-acetaminophen [Percocet] 5-325 mg tablet 1 tab PO Q6H PRN (Reason: pain) 3 Days Qty: 12 0RF ketorolac 10 mg tablet 10 mg PO 4X/DAY PRN (Reason: pain) 5 Days Qty: 20 0RF tamsulosin [Flomax] 0.4 mg capsule 0.4 mg PO DAILY 14 Days Qty: 14 0RF cephalexin 500 mg capsule 500 mg PO TID 7 Days Qty: 21 0RF No Action simvastatin 20 MG tablet 40 mg PO DAILY Patient Comments: pantoprazole 40 mg tablet,delayed release (DR/EC) 40 mg PO DAILY hydrochlorothiazide 25 mg tablet 25 mg PO DAILY Primary Care Provider: Delma Lopez Referrals: Josr Jackson MD [Med Staff - Active Staff] - Delma Lopez MD [Primary Care Provider] - Activity Restrictions/Additional Instructions: Please take the prescribed medications as directed to control your pain. Follow-up with urology to discuss potential need for stent placement and/or lithotripsy. If your pain is not controlled despite taking the prescribed medication or he develop a fever over 100.4 or have any further concerns please return to the hospital for repeat evaluation. Print Language: [place] Disposition Disposition: Home, Self Care Discharge Date/Time: 06/29/24 07:40
[2024-06-29 07:36] VITALS: BP 145/95; PULSE 75; RESP 16; TEMP 36.4; O2SAT 97
== END 2024-06-29 07:40 | disposition home or self-care (01) ==
PROVIDERS: Emergency Provider Emergency Medicine; PCP Internal Medicine; Visit Provider Emergency Medicine
DX: N20.0 Calculus of kidney (principal); I10 Essential (primary) hypertension; I71.43 Infrarenal abdominal aortic aneurysm, without rupture; K21.9 Gastro-esophageal reflux disease without esophagitis; F17.210 Nicotine dependence, cigarettes, uncomplicated; Z79.899 Other long term (current) drug therapy
CPT/HCPCS: 74176; 80048; 81001; 85025; 96361; 96374; 96375; 99283; J7030; A4216; J2405

== ENCOUNTER 2024-07-07 04:25 | Emergency (ER) | payer OTHER, SELFPAY ==
[2024-07-07 04:27] VITALS: BP 165/97; PULSE 78; RESP 16; TEMP 36.7; O2SAT 99; BMI 27.0
--- NOTE | 2024-07-07 04:58 | EDS_ITS ---
HPI HPI - GI History of Present Illness Chief Complaint: Flank Pain Informant: patient Narrative Narrative: 59-year-old male with a history of kidney stones started having left flank pain just over a week ago and was seen here after trying ibuprofen that did not help, diagnosed with a left UPJ 6 mm ureteral stone. He has continued to have the colicky pain and nausea and no other symptoms. He has been controlling the symptoms with Percocet that he was prescribed. He followed up with his PCP and his urologist Essence at [facility], states he is scheduled for outpatient x-ray and ultrasound later today, but presents here to the emergency department because his urologist told him to come for reevaluation if the stone had not passed in a week which it has not. Pain is still left flank does not feel like it has moved to any new position. He had to have stenting couple years ago for a different kidney stone. [facility] Medical History GERD (gastroesophageal reflux disease) Hypertension Kidney stone Home Medications ?Medication ?Instructions ?Recorded ?Last Taken ?Type simvastatin 20 mg tablet 40 mg PO DAILY 04/06/16 Unknown History hydrochlorothiazide 25 mg tablet 25 mg PO DAILY 01/19/22 Unknown History pantoprazole 40 mg tablet,delayed 40 mg PO DAILY 01/19/22 Unknown History release oxycodone-acetaminophen 5 mg-325 1 tab PO Q6H PRN pain 3 days #12 06/29/24 Unknown Rx mg tablet (Percocet) tabs tamsulosin 0.4 mg capsule (Flomax) 0.4 mg PO DAILY 14 days #14 caps 06/29/24 Unknown Rx Allergy/AdvReac Type Severity Reaction Status Date / Time rosuvastatin (From Crestor) AdvReac Mild SWELLING Verified 07/07/24 04:27 Social History Smoking Status: Current every day smoker tobacco type: cigarettes ROS ROS ED Constitutional Constitutional ED: Denies chills or fever(s) Eyes Eyes: Denies change in vision or diplopia ENT ENT ED: Denies rhinorrhea or sore throat Cardiovascular Cardiovascular: Denies chest pain or palpitations Respiratory/Chest Respiratory/Chest: Denies cough or dyspnea Gastrointestinal Gastrointestinal: Reports nausea; Denies abdominal pain, diarrhea or vomiting Genitourinary Genitourinary ED: Reports flank pain; Denies dysuria or hematuria Musculoskeletal Musculoskeletal: Denies back pain or neck pain Integumentary Denies abscess or rash Neurologic Neurologic: Denies headache(s), paresthesias or weakness Psychiatric Psychiatric: Denies anxiety or suicidal thoughts EXAM Physical Exam Const Vital Signs: 07/07/24 04:27 Temperature 98.0 F Temperature Source Oral Pulse Rate 78 Respiratory Rate 16 Blood Pressure 165/97 H Blood Pressure Mean 119 Pulse Ox 99 Oxygen Delivery Method Room Air Positive well nourished and well developed General Appearance ED: well developed and NAD HEENT Reports moist mucous membranes normocephalic and atraumatic Eyes PERRL and EOMs intact bilaterally Neck full ROM and supple Resp normal respiratory effort and clear to auscultation bilaterally Cardio regular rate, regular rhythm and no murmurs GI non-tender and non-distended Auscultation: normoactive bowel sounds Palpation: soft Back/Spine General Back: CVA tenderness left and other FROM Extremity normal to inspection General Extremety ED: Negative for edema, pulses abnormal or tenderness General Extremity: Negative for edema or pulses abnormal Neuro oriented x3, CN's II-XII intact bilaterally and no sensory deficits noted Sensorium / Orientation: awake and alert Motor Exam: strength 5/5 throughout Skin no rashes or lesions noted and no wounds MDM MDM MDM Narrative Medical decision making narrative: I did review his prior CT showing a 6 mm left ureteral UPJ stone. Given that this patient is controlling his symptoms, has been taking cephalexin for the past week after having a urinalysis here that showed no sign of infection, and appears well and not septic and has outpatient imaging ordered, I asked him how I could help him this morning at 0430-5 AM. He said part of the issue was that he needs to go to work at 7 AM, and he is still dependent on taking Percocet to keep his pain under control because the stone has not passed yet which he states his urologist expected it to. I think it would be reasonable to obtain basic labs, urinalysis to rule out infection, and to control his pain and discharge him with a work note, medication refill if he needs it, and to follow-up with his urologist. As I discussed with him, we do not have urology coverage right now so I would not be able to admit him to this hospital for stenting or stone extraction which he understands. I do not think he needs a repeat CT, and I do not think we need to order emergent imaging since he already has it scheduled for later today which he is in agreement with as well. Labs reviewed. He currently is still on cephalexin, I do not think he has an acute infection and he has no sign of MIN or other acute abnormality. Stable for discharge, he is feeling better after Toradol, and he will follow-up for his imaging as scheduled today. History & Record Review Additional record(s) reviewed:: Prior outpatient record (CT on 06/29/2024) Lab Data Attestation: I reviewed the patient's lab results. Labs: Laboratory Results - last 24 hr 07/07/24 07/07/24 04:57 05:10 WBC 5.9 RBC 4.50 L Hgb 14.4 Hct 42.6 MCV 94.7 H MCH 32.0 MCHC 33.8 RDW Std Deviation 45.3 H RDW Coeff of Hernandez 12.9 Plt Count 228 MPV 9.2 Immature Gran % (Auto) 0.300 Neut % (Auto) 58.5 Lymph % (Auto) 27.1 [place] % (Auto) 9.9 Eos % (Auto) 3.2 Baso % (Auto) 1.0 Absolute Neuts (auto) 3.5 Absolute Lymphs (auto) 1.61 Nucleated RBC % 0 Sodium 136 Potassium 4.0 Chloride 104 Carbon Dioxide 26.0 Anion Gap 6 BUN 23 H Creatinine 1.13 Estim Creat Clear Calc 72.13 Est GFR (MDRD) Af Amer 86 Est GFR (MDRD) Non-Af 71 BUN/Creatinine Ratio 20.4 H Glucose 108 H Calcium 9.1 Urine Color Yellow Urine Clarity Clear Urine pH 6.0 Ur Specific [place] 1.020 Urine Protein 15 H Urine Glucose (UA) Normal Urine Ketones Negative Urine Occult Blood 25 H Urine Nitrite Negative Urine Bilirubin Negative Urine Urobilinogen Normal Ur Leukocyte Esterase 100 H Urine RBC 0-5 SEEN Urine WBC 5-10 SEEN Ur Squamous Epith Cells 0-5 SEEN Urine Bacteria 0 SEEN Urine Mucus 0 SEEN Discharge Plan Triage Chief Complaint: Flank Pain ED Provider: Venkat Coronel Dx/Rx/DC Orders Clinical Impression: Renal colic on left side, Urolithiasis Instructions: ED Kidney Stone with Pain Prescriptions: No Action simvastatin 20 MG tablet 40 mg PO DAILY Patient Comments: pantoprazole 40 mg tablet,delayed release (DR/EC) 40 mg PO DAILY hydrochlorothiazide 25 mg tablet 25 mg PO DAILY oxycodone-acetaminophen [Percocet] 5-325 mg tablet 1 tab PO Q6H PRN (Reason: pain) 3 Days Qty: 12 0RF tamsulosin [Flomax] 0.4 mg capsule 0.4 mg PO DAILY 14 Days Qty: 14 0RF Stand Alone Forms: ED Work / School Excuse Primary Care Provider: Delma Lopez Referrals: Delma Lopez MD [Primary Care Provider] - Doctor,Your [Non-Staff] - As soon as possible (urologist) Print Language: Amharic Disposition Disposition: Home, Self Care
[2024-07-07] MEDS: Ondansetron 4 MG/2 ML Vial IV (05:01)
[2024-07-07 05:02] LABS: Absolute Lymphocyte Count 1.61 X10^3/uL (0.83-4.51); Absolute Neutrophil Count 3.5 X10^3/uL (2.0-7.7); Basophil# 0.06 X10^3/uL; Eosinophil# 0.19 X10^3/uL; Eosinophils% 3.2 % (0-5); Hematocrit 42.6 % (40-54); Hemoglobin 14.4 g/dL (13.0-16.5); Lymphocyte # 1.61 X10^3/ul (0.83-4.51); Lymphocyte % 27.1 % (19-41); Mean Corp Hgb Conc 33.8 g/dL (32-36); Mean Corpuscular Volume 94.7 fL (80-94); Mean Platelet Vol. 9.2 fl (6.2-12.0); Monocyte# 0.59 X10^3/uL; Monocyte% 9.9 % (0-10); NRBC Flagged by Analyzer 0 % (0-5); Neutrophil # 3.47 X10^3/uL (2.7-7.7); Neutrophil % 58.5 % (47-70); Platelet Count 228 K/mm3 (150-450); RBC Distribution Width CV 12.9 % (11.6-14.6); RBC Distribution Width SD 45.3 fl (35.1-43.9); White Blood Count 5.9 K/mm3 (4.4-11.0)
[2024-07-07] MEDS: Ketorolac 15 MG/ML Vial IV (05:03)
[2024-07-07 05:14] LABS: Bacteria 0 SEEN /hpf (None Seen); Mucous, Urine 0 SEEN /hpf (<or=2+)
[2024-07-07 05:15] LABS: Color, Urine Yellow (Yellow); Glucose, Dipstick Normal (Normal); Ketone-Dipstick Negative (Negative); Leukocyte Esterase-Dipstick 100 /ul (Negative); Nitrite-Dipstick Negative (Negative); Occult Blood-Urine 25 /ul (Negative); Protein-Dipstick 15 mg/dl (Negative); Urine Bilirubin Dipstick Negative (Negative); Urine Clarity Clear (Clear); Urine Urobilinogen Normal (Normal)
[2024-07-07 05:16] LABS: Anion Gap 6 (5-15); BUN 23 mg/dL (7-18); BUN/Creat Ratio 20.4 RATIO (10-20); Calcium,Total 9.1 mg/dL (8.5-10.1); Chloride 104 mmol/L (98-107); Creatinine, Serum 1.13 mg/dL (0.70-1.30); EST Glomerular Filtration Rate 71 mL/min (>60); Est Glom Filt Rate - Afr Amer 86 mL/min (>60); Estimated Creatinine Clearance 72.13 ml/min; Glucose 108 mg/dL (74-106); Sodium Level 136 mmol/L (136-145)
[2024-07-07 05:35] LABS: Red Blood Cells-Urine 0-5 SEEN /hpf (0-5); Squamous Epithelial Cells - UA 0-5 SEEN /hpf (0-5); White Blood Cells 5-10 SEEN /hpf (0-5)
[2024-07-07 05:50] VITALS: BP 127/88; PULSE 74; RESP 16; TEMP 36.6; O2SAT 99
== END 2024-07-07 05:51 | disposition home or self-care (01) ==
PROVIDERS: Emergency Provider Emergency Medicine; PCP Internal Medicine; Visit Provider Emergency Medicine
DX: N20.1 Calculus of ureter (principal); I10 Essential (primary) hypertension; K21.9 Gastro-esophageal reflux disease without esophagitis; F17.210 Nicotine dependence, cigarettes, uncomplicated; Z79.899 Other long term (current) drug therapy
CPT/HCPCS: 80048; 81001; 85025; 96374; 96375; 99283; A4216; J2405

== ENCOUNTER 2025-07-05 18:10 | Emergency (ER) | payer OTHER, SELFPAY ==
[2025-07-05 18:10] VITALS: BP 144/93; PULSE 103; RESP 22; TEMP 36.2; O2SAT 98; BMI 26.2
--- NOTE | 2025-07-05 18:16 | EKG12_ITS ---
Test Reason : CP Blood Pressure : */* mmHG Vent. Rate : 88 BPM Atrial Rate : 88 BPM P-R Int : 132 ms QRS Dur : 92 ms QT Int : 374 ms P-R-T Axes : 54 64 62 degrees QTcB Int : 452 ms Normal sinus rhythm Normal ECG Confirmed by FRIDA CHAVEZ, AWILDA ([id number]), assignment editor ADAM SADLER ([id number]) on 07/06/2025 8:38:55 AM Referred By: Confirmed By: AWILDA GALICIA MD
[2025-07-05 18:22] LABS: Hematocrit 42.3 % (40-54); Hemoglobin 15.3 g/dL (13.0-16.5); Immature Granulocytes Count 0.020 X10^3/uL (0.0-0.0); Mean Corp Hgb Conc 36.2 g/dL (32-36); Mean Corpuscular Volume 90.6 fL (80-94); Mean Platelet Vol. 9.1 fl (6.2-12.0); NRBC Flagged by Analyzer 0 % (0-5); Platelet Count 209 K/mm3 (150-450); RBC Distribution Width CV 13.7 % (11.6-14.6); RBC Distribution Width SD 46.0 fl (35.1-43.9); Red Blood Count 4.67 M/mm3 (4.6-6.2); White Blood Count 6.3 K/mm3 (4.4-11.0)
--- NOTE | 2025-07-05 18:30 | RAD_ITS ---
PROCEDURE: CHEST PA AND LATERAL 07/05/2025 REASON FOR EXAM: CHEST PAIN TECHNIQUE: Procedure Code: RADCXR Modality: DX Procedure: CHEST PA AND LATERAL FINDINGS: No focal consolidation. No pleural effusion or pneumothorax. Cardiac silhouette is within normal limits. No acute fractures. RAD/Chest PA and Lateral IMPRESSION: No focal consolidations. Reading Location: [id number]
[2025-07-05 18:40] LABS: Anion Gap 13 (5-15); BUN 16 mg/dL (4-19); BUN/Creat Ratio 18.8 RATIO (10-20); Calcium,Total 9.2 mg/dL (7.6-11.0); Carbon Dioxide 22.2 mmol/L (21.0-32.0); Chloride 106 mmol/L (98-108); Estimated Creatinine Clearance 97.01 ml/min (50-250); Glucose 129 mg/dL (70-99); Potassium 3.8 mmol/L (3.3-5.1); Troponin T High Sensitivity < 6 ng/L (<=22)
[2025-07-05 19:22] VITALS: PULSE 85; RESP 16; O2SAT 100
--- NOTE | 2025-07-05 19:33 | ED.VIS.CHEST ---
HPI History of Present Illness Chief Complaint: Chest Pain [facility] Medical History GERD (gastroesophageal reflux disease) Hypertension Kidney stone Home Medications ?Medication ?Instructions ?Recorded ?Last Taken ?Type simvastatin 20 mg tablet 40 mg PO DAILY 04/06/16 Unknown History pantoprazole 40 mg tablet,delayed 40 mg PO DAILY 01/19/22 Unknown History release amlodipine 10 mg tablet 10 mg PO DAILY 07/05/25 Unknown History Allergy/AdvReac Type Severity Reaction Status Date / Time rosuvastatin (From Crestor) AdvReac Mild SWELLING Verified 07/05/25 18:10 Social History Smoking Status: Heavy Smoker (>10/day) EXAM Physical Exam Const Vital Signs: 07/05/25 18:10 07/05/25 19:22 07/05/25 19:22 Temperature 97.2 F L Temperature Source Temporal Pulse Rate 103 H 85 Respiratory Rate 22 H 16 Blood Pressure 144/93 H Blood Pressure Mean 110 Pulse Ox 98 100 100 Oxygen Delivery Method Room Air Room Air Room Air 07/05/25 20:00 07/05/25 21:00 07/05/25 21:35 Temperature 97.2 F L Temperature Source Pulse Rate 74 68 68 Respiratory Rate 17 17 17 Blood Pressure 144/93 H Blood Pressure Mean 110 Pulse Ox 100 97 97 Oxygen Delivery Method Room Air Room Air MDM MDM MDM Narrative Medical decision making narrative: HISTORY OF PRESENT ILLNESS: Chief complaint: Chest pain 60-year-old male history of hypertension, GERD, hyperlipidemia presents with concern for chest pain. He notes associated shortness of breath. Notes the pain started over the past few hours. Notes radiates down the left arm. He also endorses associated nausea. Notes it began approximately 2 PM on 07/05/2025. States intermittent. No pain currently it is described as sharp. It is not ripping or tearing. Is not pressure-like. The pain isnot exertional. It is not pleuritic. He denies recent cough fever chills. Denies any bleeding diathesis. Denies syncope. Denies family history of sudden cardiac . Denies drug use. Does not drink alcohol earlier today but notes the pain did not start after drinking alcohol. Denies abdominal pain. The patient denies recent surgery in the last 4 weeks or immobilization in the last 3 days, denies previous diagnosis of DVT or PE, hemoptysis, unilateral leg swelling or malignancy with treatment the last 6 months or palliative. No estrogen use noted. Patient denies sudden onset of pain, no tearing sensation, no migratory symptoms, no new numbness, weakness or loss of sensation. Patient denies family history or personal history of Connective tissue disorders (Marfan's Syndrome, Burak Danlos etc) REVIEW OF SYSTEMS: Pertinent positives: Chest pain, shortness of breath, nausea Pertinent negatives: Syncope, leg swelling PHYSICAL EXAM: Nursing triage notes reviewed, Vital signs reviewed Constitutional: please see [facility] HENT: MMM Eyes: Pupils equal round and reactive to light, Extraocular muscles intact Neck: No stridor, no JVD, full neck ROM Lungs: Clear to auscultation, No wheezing or rales. No increased work of breathing, no conversational dyspnea, no accessory muscle use, no nasal flaring. No respiratory distress noted Heart: Regular rate and rhythm, No murmurs, No rubs and No gallops, 2+ distal pulses (radial, femoral, posterior tibial) in all extremities Abdomen: Soft, there is no tenderness, rigidity, rebound or guarding, no obvious peritoneal signs, no palpable pulsatile abdominal masses, no auscultated abdominal bruit : No CVAT Extremities: No edema Neuro: No new focal neurological deficits, cranial nerves II through XII intact, 5/5 strength in all present extremities. Intact sensation to light touch in all present extremities, 2+ reflexes bilateral patella tendons. Skin: No rash or lesions noted MEDICAL DECISION MAKING: Chief Complaint: please see [facility] External records reviewed: Reviewed prior cardiovascular testing Factors affecting care: As per HPI Social determinants of health: Denies illicit drug use such as cocaine or methamphetamine History obtained from others: none Consults: none [facility] Narrative: The patient was initially hemodynamically stable, afebrile and nontoxic-appearing. Exam with no focal cardiopulmonary abnormalities. No stigmata of VTE, CHF or aortic dissection. I considered the following differential diagnosis: ACS, arrhythmia, anemia, electrolyte disturbance, PE, aortic dissection, pneumothorax I obtained a broad lab and imaging evaluation to further determine if the patient was suffering from a life-threatening etiology. Initially treated the patient with aspirin and nitroglycerin. ALL IMAGES (IF OBTAINED) HAVE BEEN PERSONALLY REVIEWED AND INTERPRETED BY MYSELF. Initial EKG showed normal sinus rhythm rate 88, normal axis, normal intervals, no obvious STEMI or ischemic change CBC without leukocytosis, severe anemia, no thrombocytopenia. BMP without evidence of significant electrolyte abnormalities, no anion gap, no acute kidney injury. High-sensitivity troponin is negative, no evidence of myocardial ischemia x 2 (a effectively ruling out ACS has been to etiology per which [facility] high-sensitivity troponin protocol) I have personally reviewed the patient's chest x-ray. Chest x-ray is unremarkable for pulmonary edema, pneumothorax, pneumonia or focal cardiopulmonary abnormality. The synthesis of the patient's history, physical exam, labs images suggest no acute life-limiting etiology. Upon re-evaluation the patient remained chest pain-free. His vital signs improved with the initial tachycardia and tachypnea resolving. No clear etiology of his symptoms. High-sensitivity troponins were negative. While I considered aortic dissection and PE the patient's history and physical exam not consistent with these etiologies. There is medication for admission or transfer at this time. The patient is appropriate discharge home with close outpatient follow-up for outpatient confirmatory testing including stress test. The patient and/or family, caregivers express understanding. The patient and/or family, caregivers agrees with the plan. Shared decision making: I will have a discussion with the patient and or visitors regarding risk/benefits of further testing or admission. They will be made aware of of the risk/benefits inherent in this decision they will be given the opportunity to voice understanding. Total critical care time today provided was at least 0 minutes. This excludes separately billable procedures. Critical care time (if documented) is secondary to the patient having high probability of clinically significant/life threatening deterioration in the patient's condition which required my urgent intervention. Impression: 1. Chest pain 2. History of hypertension Dispo: Discharge home This note was generated with [employer] dictation software. It may contain incorrect words, spelling, and punctuation that were not noted in review of the chart prior to signing. Lab Data Labs: Laboratory Results - last 24 hr 07/05/25 07/05/25 18:15 20:06 WBC 6.3 RBC 4.67 Hgb 15.3 Hct 42.3 MCV 90.6 MCH 32.8 H MCHC 36.2 H RDW Std Deviation 46.0 H RDW Coeff of Hernandez 13.7 Plt Count 209 MPV 9.1 Immature Gran % (Auto) 0.300 Neut % (Auto) 61.5 Lymph % (Auto) 27.6 [place] % (Auto) 7.4 Eos % (Auto) 2.4 Baso % (Auto) 0.8 Absolute Neuts (auto) 3.9 Absolute Lymphs (auto) 1.75 Nucleated RBC % 0 Sodium 141 Potassium 3.8 Chloride 106 Carbon Dioxide 22.2 Anion Gap 13 BUN 16 Creatinine 0.83 Estim Creat Clear Calc 97.01 Est GFR (MDRD) Non-Af 101 BUN/Creatinine Ratio 18.8 Glucose 129 H Calcium 9.2 Troponin T High Sens < 6 Troponin T Hi Sens 2 Hr 6 Radiography Diagnostic Testing: Clinical Impression(s) from Imaging Studies Chest X-Ray 07/05/25 18:30 IMPRESSION: No focal consolidations. Reading Location: [facility] Discharge Plan Triage Chief Complaint: Chest Pain ED Provider: Ej Awad Dx/Rx/DC Orders Instructions: ED Chest Pain, Uncertain Cause Prescriptions: No Action simvastatin 20 MG tablet 40 mg PO DAILY Patient Comments: pantoprazole 40 mg tablet,delayed release (DR/EC) 40 mg PO DAILY amlodipine 10 mg tablet 10 mg PO DAILY Primary Care Provider: Delma Lopez Referrals: Delma Lopez MD [Primary Care Provider, Internal Medicine] Activity Restrictions/Additional Instructions: Thank you for trusting us with your care today! Your labs and images are negative for signs of a life-threatening cardiac problem. Please begin taking daily aspirin (81 mg) Please return to the emergency department if your symptoms change or worsen. Please follow with your primary care physician for further outpatient evaluation and management. Print Language: [place]i Disposition Disposition: Home, Self Care Discharge Date/Time: 07/05/25 21:39
--- OUTSIDE RECORDS SUMMARY | 2025-07-05 19:57 | XMS RPT_ITS | CCD ---
Author Organization [facility] Care Team Providers Care Staff Development Nurse Name Role Phone Lee Henson MD Primary Care Provider AGNIESZKA HINES Referring Unavailable TALAMPAS, LEE D Primary Care Unavailable Lee Henson MD Primary Care Provider WON RODRIGUEZ Referring Unavailable LORRIEINIWON Attending Unavailable TALAMPAS, LEE D Primary Care Unavailable TALAMPAS, LEE D Primary Care Unavailable WON RODRIGUEZ Attending Unavailable WON RODRIGUEZ Admitting Unavailable Ozzy Barboza Attending Unavailable Talampas, Lee D Primary Care Unavailable Venkat Coronel Attending Unavailable Talampas, Lee D Primary Care Unavailable Hines PRODUCTION SOUND MIXER.MILLED RICE BROKER, Agnieszka Unavailable Viridiana PRODUCTION SOUND MIXER.REFRACTORY SPECIALIST, Yoel Unavailable Viridiana PRODUCTION SOUND MIXER.REFRACTORY SPECIALIST, Yoel Unavailable Hines PRODUCTION SOUND MIXER.MILLED RICE BROKER, Agnieszka Unavailable TALAMPAS, LEE D Primary Care Unavailable O'TERRENCE, ERVIN Referring Unavailable TALAMPAS, LEE D Primary Care Unavailable O'TERRENCE, ERVIN Referring Unavailable O'TERRENCE, ERVIN Attending Unavailable TALAMPAS, LEE D Primary Care Unavailable MAGALIS GALINDO Referring Unavailable TALAMPAS, LEE D Primary Care Unavailable O'TERRENCE, ERVIN Referring Unavailable HINES, AGNIESZKA Referring Unavailable TALAMPAS, LEE D Primary Care Unavailable O'TERRENCE, ERVIN Attending Unavailable HINES, AGNIESZKA Attending Unavailable TALAMPAS, LEE D Primary Care Unavailable YOEL KEMP Referring Unavailable VENKAT HOWARD Attending Unavailable TALAMPAS, LEE D Primary Care Unavailable VIRIDIANAYOEL Referring Unavailable TALAMPAS, LEE D Primary Care Unavailable VIRIDIANA, ROSA Referring Unavailable TALAMPAS, LEE D Primary Care Unavailable ARY, WILL (RES) Referring Unavailable TALAMPAS, LEE D Primary Care Unavailable TALAMPAS, LEE D Primary Care Unavailable VIRIDIANAYOEL Attending Unavailable SELF Referring Unavailable TALAMPAS, LEE D Primary Care Unavailable O'TERRENCE, ERVIN Referring Unavailable ARY, WILL (RES) Attending Unavailable TALAMPAS, LEE D Primary Care Unavailable SELF Referring Unavailable TALAMPAS, LEE D Primary Care Unavailable MAYTE LYONS Referring Unavailable ARY, WILL (RES) Referring Unavailable TALAMPAS, LEE D Primary Care Unavailable GALINDO, MAGALIS D Attending Unavailable HINESAGNIESZKA Referring Unavailable TALAMPAS, LEE D Primary Care Unavailable TALAMPAS, LEE D Primary Care Unavailable TALAMPAS, LEE D Primary Care Unavailable O'TERRENCE, ERVIN Referring Unavailable OLDER, MARIANNE Attending Unavailable TALAMPAS, LEE D Primary Care Unavailable ABEREGG, LOGANISLYN P Referring Unavailable TALAMPAS, LEE D Primary Care Unavailable ABEREGGLOGANISLYN P Attending Unavailable TALAMPAS, LEE D Primary Care Unavailable TALAMPAS, LEE D Primary Care Unavailable GALINDO, MAGALIS D Referring Unavailable GALINDO, MAGALIS D Attending Unavailable TALAMPAS, LEE D Primary Care Unavailable O'TERRENCE, ERVIN Referring Unavailable Allergies Allergy Classification Reported Allergen(s) Allergy Type Date of Onset Reaction(s) Facility HMG-CoA Reductase Inhibitors (statins) (2 sources) atorvastatin Drug Allergy 08-02-2016 [facility] Work Phone: varenicline (1 source) varenicline Drug Allergy 04-19-2018 [facility] Work Phone: (20 sources) atorvastatin; Translations: [ATORVASTATIN] Drug Allergy 08-02-2016 [facility] Work Phone: (20 sources) varenicline; Translations: [VARENICLINE] Drug Allergy 04-19-2018 [facility] Work Phone: (20 sources) rosuvastatin; Translations: [ROSUVASTATIN] Drug Allergy 03-07-2024 [facility] (1 source) rosuvastatin Drug Allergy 07-07-2024 [facility] Medications Current Medications Medication Drug Class(es) Dates Sig (Normalized) Sig (Original) acetaminophen 325 mg / HYDROcodone bitartrate 7.5 mg oral tablet (1 source) Opioid Agonist Start: 12-15-2022 End: 12-22-2022 take 1 tablet by mouth at bedtime as needed for pain HYDROcodone-Acetam inophen (NORCO) 7.5-325 mg per tablet Indications: Primary hypertension , Localized swelling of finger of left hand , Pain in left hand Take 1 tablet by mouth at bedtime as needed for pain for up to 7 days. 7 tablet 0 12/15/2022 12/22/2022 Active Comment on above: Take 1 tablet by rebecca th at bedtime as needed for pain for up to 7 days. acetaminophen 325 mg / oxyCODONE hydrochloride 5 mg oral tablet (11 sources) Opioid Agonist Start: 07-10-2024 End: 07-15-2024 take 1 tablet by mouth every six hours as needed for pain oxyCODONE-acetamin ophen (PERCOCET) 5-325 mg tablet Indications: Calculus of ureter Take 1 tablet by mouth every 6 hours as needed for pain for up to 5 days. 20 tablet 07/10/2024 07/15/2024 Active Start: 01-20-2022 take 1 tablet by rebecca th every six hours Oxycodone-Acetaminophen Active 1 TABLET PO EVERY 6 HOURS 14 January 20, 2022 2:57pm Start: 01-20-2022 End: 07-04-2024 take 1 tablet by mouth every six hours as needed for pain oxyCODONE-acetaminophen (PERCOCET) 5-325 mg tablet Indications: Renal calculus Take 1 tablet by mouth every 6 hours as needed for pain for up to 3 days. FOR PAIN. 12 tablet 07/01/2024 07/04/2024 Active acyclovir 800 mg oral tablet (2 sources) Herpesvirus Nucleoside Analog DNA Polymerase Inhibitor, Herpes Simplex Virus Nucleoside Analog DNA Polymerase Inhibitor, Herpes Zoster Virus Nucleoside Analog DNA Polymerase Inhibitor Start: 10-28-2024 End: 11-07-2024 take 1 tablet by mouth five times daily acyclovir (ZOVIRAX) 800 mg tablet Indications: Herpes zoster without complication Take 1 tablet by mouth five times a day for 10 days. 50 tablet 10/28/2024 11/07/2024 Active [id number] 200 actuat albuterol 0.09 mg/actuat metered dose inhaler (4 sources) beta2-Adrenergic Agonist Start: 05-23-2025 take 2 puff(s) by inhalation every four hours as needed for wheezing albuterol HFA (PROVENTIL HFA, VENTOLIN HFA) 90 mcg/actuation inhaler Inhale 2 puffs as instructed every 4 hours as needed for wheezing/shortnes s of breath. 8 g 05/23/2025 Active amLODIPine 10 mg oral tablet (20 sources) Dihydropyridine Calcium Channel Yovana Start: 12-22-2022 End: 02-25-2025 take 1 tablet by mouth once daily, then take 1 tablet by mouth once daily amLODIPine (NORVASC) 10 mg tablet Take 1 tablet by mouth once daily. DOSE CHANGE, take one daily 90 tablet 3 02/25/2025 Active Start: 12-15-2022 End: 12-22-2022 take 1 tablet by mouth once daily amLODIPine (NORVASC) 5 mg tablet Take 1 tablet by mouth once daily. 90 tablet 3 12/15/2022 12/22/2022 Discontinued Comment on above: Take 1 tablet by rebecca th once daily. DOSE CHANGE, take one daily Take 1 tablet by rebecca th once daily. benzonatate 200 mg oral capsule (1 source) Non-narcotic Antitussive Start: take 1 capsule by mouth three times daily as needed Benzonatate 200 mg capsule Indications: Acute bronchitis, unspecified organism , Subacute cough Take 1 capsule by mouth three times a day as needed. 21 capsule 05/27/2025 Active cephalexin 500 mg oral capsule (13 sources) Cephalosporin Antibacterial Start: End: cephALEXin 500 mg cap(s) (KEFLEX) Start: 06-29-2024 End: 07-15-2024 cephALEXin (KEFLEX) 500 mg c apsule three times a day. 06/29/2024 07/15/2024 Discontinued (Course of therapy completed) Start: 12-22-2022 End: 12-27-2022 take 1 capsule by mouth four times daily at mealtime cephALEXin (KEFLEX) 500 mg capsule Indications: Localized swelling of finger of left hand , Pain in left hand Take 1 capsule by mouth four times daily for 5 days. Take with food 20 capsule 0 12/22/2022 12/27/2022 Active Comment on above: Take 1 capsule by mo [facility] four times daily for 5 days. Take with food ciprofloxacin 500 mg oral tablet (1 source) Quinolone Antimicrobial Start: 01-21-20 take 1 tablet by mouth twice daily Ciprofloxacin Hcl (Cipro) 500 mg tablet Active 500 MG PO TWICE A DAY 6 7 January 20, 2022 2:57pm 120 actuat fluticasone propionate 0.044 mg/actuat metered dose inhaler (18 sources) Corticosteroid Start: 05-27-20 take 1 puff(s) by mouth twice daily fluticasone (FLOVENT) 44 mcg/actuation inhaler Indications: Acute bronchitis, unspecified organism , Subacute cough Inhale 1 puff as instructed two times a day. Shake well before use. Rinse mouth after use. 1 each 05/27/2025 Active Start: 10-23-2023 End: 07-15-2024 take 2 spray(s) by mouth once daily fluticasone (FLONASE) 50 mcg/actuation nasal spray Indications: URI, acute , Sinus pressure Use 2 Sprays in each nostril once daily. Rinse mouth after use. 1 Each 10/23/2023 07/15/2024 Discontinued (Course of therapy completed) Comment on above: Use 2 Sprays in each nostril once daily. Rinse mouth after use. hydroCHLOROthiazide 25 mg oral tablet (2 sources) Thiazide Diuretic Start: 2020 Hydrochlorothiazide Active 25 MG DAILY 2022 6:55am Comment on above: Take 1 tablet by [facility] once daily. lidocaine hydrochloride 0.02 mg/mg topical gel (7 sources) Antiarrhythmic, Amide Local Anesthetic Start: 2023 End: 2023 lidocaine urojet 2 % 11 mL topical gel (GLYDO) pantoprazole 40 mg delayed release oral tablet (20 sources) Proton Pump Inhibitor Start: 2022 End: 2024 take 1 tablet by mouth once daily pantoprazole DR (PROTONIX) 40 mg tablet Indications: Gastroesophageal reflux disease, unspecified whether esophagitis present Take 1 tablet by mouth once daily. 90 tablet 3 02/25/2025 Active Start: 07-11-2021 take 1 tablet by rebecca th once daily pantoprazole DR (PROTONIX) 40 mg tablet Indications: Gastroesophageal reflux disease, unspecified whether esophagitis present Take 1 tablet by mouth once daily. 90 tablet 3 07/28/2021 Active Comment on above: Take 1 tablet by rebecca th once daily. potassium citrate 15 meq extended release oral tablet (13 sources) Start: 09-03-20 End: 09-03-20 take 1 tablet by mouth twice daily Potassium Citrate 15 mEq TbER Take 1 tablet by mouth two times a day. 180 tablet 3 09/03/2024 09/03/2025 Active rosuvastatin calcium 5 mg oral tablet (15 sources) HMG-CoA Reductase Inhibitor Start: 03-17-20 End: 02-11-20 take 1 tablet by mouth once daily rosuvastatin (CRESTOR) 5 mg tablet Take 1 tablet by mouth once daily. 90 tablet 3 02/11/2024 03/07/2024 Discontinued Comment on above: Take 1 tablet by rebecca th once daily. simvastatin 40 mg oral tablet (20 sources) HMG-CoA Reductase Inhibitor Start: 03-07-20 End: 02-26-20 take 1 tablet by mouth once daily at bedtime simvastatin (ZOCOR) 40 mg tablet Indications: Hypercholesteremia Take 1 tablet by mouth daily at bedtime. 90 tablet 3 02/25/2025 Active Start: 12-15-2022 End: 12-22-2022 take 1 tablet by mouth once daily at bedtime simvastatin (ZOCOR) 40 mg tablet Indications: Hypercholesteremia Take 1 tablet by mouth daily at bedtime. 90 tablet 3 12/15/2022 12/22/2022 Discontinued Start: 07-28-2021 take 1 tablet by rebecca th once daily at bedtime simvastatin (ZOCOR) 40 mg tablet Indications: Hypercholesteremia Take 1 tablet by mouth daily at bedtime. 90 tablet 3 07/28/2021 Active Start: 04-06-2016 take 40 mg by mouth once daily Simvastatin Active 40 MG PO DAILY April 06, 2016 1:51pm Comment on above: Take 1 tablet by rebecca th daily at bedtime. Completed/Discontinued Medications Medication Drug Class(es) Dates Sig (Normalized) Sig (Original) calcium chloride 0.0014 meq/ml / potassium chloride 0.004 meq/ml / sodium chloride 0.103 meq/ml / sodium lactate 0.028 meq/ml injectable solution (1 source) Start: 04-28-2024 End: 04-28-2024 lactated ringers iv infusion CPAP/BIPAP/OTHER (20 sources) Start: 03-19-2023 End: 07-15-2024 CPAP/BIPAP/OTHER Indications: PEPE (obstructive sleep apnea) Auto titrating PAP device 5-15 cmH2O with humidification, small ResMed AirFit P10 nasal pillows mask and clinical follow up with data download after 1 month to ensure the pressure range is appropriate. 1 Each 03/19/2023 07/15/2024 Discontinued (Course of therapy completed) Start: 03-19-2023 End: 08-03-2050 CPAP/BIPAP/OTHER Indications : PEPE (obstructive sleep apnea) Auto titrating PAP device 5-15 cmH2O with humidification, small ResMed AirFit P10 nasal pillows mask and clinical follow up with data download after 1 month to ensure the pressure range is appropriate. 1 Each 03/19/2023 08/03/2050 Active Start: 03-19-2023 End: 08-03-2050 CPAP/BIPAP/OTHER Indications : PEPE (obstructive sleep apnea) Auto titrating PAP device 5-15 cmH2O with humidification, small ResMed AirFit P10 nasal pillows mask and clinical follow up with data download after 1 month to ensure the pressure range is appropriate. 1 Each 0 03/19/2023 08/03/2050 Active Comment on above: Auto titrating PAP d evice 5-15 cmH2O with humidification, small ResMed AirFit P10 nasal pillows mask and clinical follow up with data download after 1 month to ensure the pressure range is appropriate. diphenhydrAMINE (1 source) Histamine-1 Receptor Antagonist Start: End: diphenhydrAMINE 12.5-50 mg injection (BENADRYL) doxycycline hyclate 100 mg oral tablet (4 sources) Tetracycline-class Drug Start: End: take 1 tablet by mouth twice daily doxycycline (VIBRA-TABS) 100 mg tablet Take 1 tablet by mouth two times a day for 5 days. 10 tablet 05/23/2025 05/27/2025 Discontinued (Course of therapy completed) 1 ml fentaNYL 0.05 mg/ml injection (1 source) Opioid Agonist Start: End: fentaNYL 50 mcg/mL 25-100 mcg injection (SUBLIMAZE) ketorolac tromethamine 10 mg oral tablet (11 sources) Nonsteroidal Anti-inflammatory Drug, Cyclooxygenase Inhibitor Start: End: take 1 tablet by mouth every six hours as needed keTORolac (TORADOL) 10 mg tablet Take 10 mg by mouth every 6 hours as needed. 06/29/2024 07/15/2024 Discontinued (Course of therapy completed) lisinopril 5 mg oral tablet (1 source) Angiotensin Converting Enzyme Inhibitor Start: take 1 tablet by mouth once daily lisinopril (ZESTRIL, PRINIVIL) 5 mg tablet Take 1 tablet by mouth once daily. for blood pressure 30 tablet 11 07/28/2021 Active Comment on above: Take 1 tablet by rebecca once daily. for blood pressure meloxicam 15 mg oral tablet (11 sources) Nonsteroidal Anti-inflammatory Drug Start: End: take 1 tablet by mouth once daily for pain meloxicam (MOBIC) 15 mg tablet Take 1 tablet by mouth once daily. for pain. Take with food. Start this after you have completed toradol if still having pain. 30 tablet 07/01/2024 07/15/2024 Discontinued (Course of therapy completed) 5 ml midazolam 1 mg/ml injection (1 source) Benzodiazepine Start: End: midazolam 1-5 mg injection (VERSED) 24 hr oxybutynin chloride 5 mg extended release oral tablet (12 sources) Cholinergic Muscarinic Antagonist Start: End: take 1 tablet by mouth once daily as needed for pain oxybutynin XL (DITROPAN XL) 5 mg 24 hr tablet Take 1 tablet by mouth once daily as needed (bladder pain with stent in place, stent pain). 14 tablet 07/18/2024 02/25/2025 Discontinued polyethylene glycol 3350 04013 mg powder for oral solution (20 sources) Osmotic Laxative Start: End: polyethylene glycol 3350 17 gram/dose powder Drink a mix of 1 scoop in 8oz of water/beverage once daily as needed for constipation. 238 g 07/01/2024 02/25/2025 Discontinued polyethylene glycol 3350 [id number] mg / potassium chloride 2970 mg / sodium bicarbonate 6740 mg / sodium chloride 5860 mg / sodium sulfate 89297 mg powder for oral solution (1 source) Osmotic Laxative Start: End: peg 3350-Electrolytes (GOLYTELY) 236-22.74-6.74 -5.86 gram suspension Indications: History of colonic polyps Take 4,000 mL by mouth one time only for 1 dose. Refer to printed prep instructions from your provider. 4000 mL 0 03/31/2024 03/31/2024 predniSONE 20 mg oral tablet (10 sources) Start: End: take 2 tablets by mouth once daily predniSONE (DELTASONE) 20 mg tablet Take 2 tablets by mouth once daily for 5 days. 10 tablet 05/23/2025 05/27/2025 Discontinued (Course of therapy completed) Start: 10-28-2024 End: 10-31-2024 take 1 tablet by mouth twice daily predniSONE (DELTASONE) 20 mg tablet Indications: Sore throat Take 1 tablet by mouth two times a day for 3 days. 6 tablet 10/28/2024 10/31/2024 Active Start: 01-08-2023 End: 01-17-2023 predniSONE (DELTASONE) 10 mg tablet Take 4 tabs daily for 3 days, then 2 tabs daily for 3 days, then 1 tab daily for 3 days with food. 21 tablet 0 01/08/2023 01/17/2023 Active Start: 12-13-2022 End: 12-22-2022 predniSONE (DELTASONE) 10 mg tablet Take 4 tabs daily for 3 days, then 2 tabs daily for 3 days, then 1 tab daily for 3 days with food. 21 tablet 0 12/13/2022 12/22/2022 Active Comment on above: Take 4 tabs daily fo r 3 days, then 2 tabs daily for 3 days, then 1 tab daily for 3 days with food. tamsulosin hydrochloride 0.4 mg oral capsule (20 sources) alpha-Adrenergic Yovana Start: End: take 2 capsules by mouth once daily tamsulosin (FLOMAX) 0.4 mg Take 2 capsules by mouth once daily. 60 capsule 1 07/09/2024 02/25/2025 Discontinued Start: 06-29-2024 End: 07-09-2024 take 0.4 mg by mouth once daily tamsulosin (FLOMAX) 0.4 mg Take 0.4 mg by mouth once daily. 06/29/2024 07/09/2024 Discontinued Problems Active Problems Problem Classification Problem Date Documented Date Episodic/Chronic Abdominal pain (3 sources) Abdominal pain; Translations: [Unspecified abdominal pain] Onset: 08-01-2024 Episodic Acquired foot deformities (20 sources) Acquired hallux malleus; Translations: [Other hammer toe(s) (acquired), unspecified foot] Onset: 07-27-2005 07-27-2005 Chronic Acute bronchitis (2 sources) Acute bronchitis; Translations: [Acute bronchitis, unspecified] Onset: 05-27-2025 05-27-2025 Episodic Aortic; peripheral; and visceral artery aneurysms (6 sources) Aneurysm of infrarenal abdominal aorta ; Translations: [Infrarenal abdominal aortic aneurysm (AAA) without rupture (HCC)] Onset: 05-12-2025 07-01-2024 Chronic Chronic obstructive pulmonary disease and bronchiectasis (1 source) Bronchitis, not specified as acute or chronic; Translations: [Sinobronchitis] Onset: 05-23-2025 Episodic Disorders of lipid metabolism (20 sources) Hypercholesterolemia; Translations: [Pure hypercholesterolemia, unspecified] Onset: 01-15-2015 01-15-2015 Chronic Esophageal disorders (20 sources) Gastroesophageal reflux disease; Translations: [Gastro-esophageal reflux disease without esophagitis] Onset: 05-14-2008 05-14-2008 Chronic Essential hypertension (20 sources) Benign essential hypertension; Translations: [Essential (primary) hypertension] 05-14-2008 Chronic Fluid and electrolyte disorders (1 source) Sodium disorder; Translations: [Hyperosmolality and hypernatremia] 09-04-2024 Episodic Fracture of upper limb (4 sources) Closed fracture of middle phalanx of little finger; Translations: [Nondisplaced fracture of middle phalanx of left little finger, subsequent encounter for fracture with routine healing] Onset: 03-16-2025 03-05-2025 Episodic Genitourinary symptoms and ill-defined conditions (3 sources) Deficient urine secretion; Translations: [Anuria and oliguria] 09-04-2024 Episodic Headache; including migraine (20 sources) Migraine without aura, not refractory ; Translations: [Migraine without aura, not intractable, without status migrainosus] Onset: 10-29-2019 10-29-2019 Chronic Other bone disease and musculoskeletal deformities (1 source) Disorder of bone; Translations: [Disorder of bone, unspecified] 03-15-2023 Episodic Other connective tissue disease (4 sources) Pain of left hand; Translations: [Pain in left hand] Episodic Other injuries and conditions due to external causes (4 sources) Injury of finger of left hand; Translations: [Unspecified injury of left wrist, hand and finger(s), initial encounter] 02-25-2025 Episodic Other injuries and conditions due to external causes (1 source) Unspecified injury of left wrist, hand and finger(s), initial encounter; Translations: [Injury of left little finger, initial encounter] Onset: 03-16-2025 Episodic Other lower respiratory disease (2 sources) Snoring; Translations: [Snoring] Episodic Other lower respiratory disease (3 sources) Cough; Translations: [Acute cough] 05-23-2025 Episodic Other nervous system disorders (1 source) Paresthesia of hand ; Translations: [Anesthesia of skin] 02-18-2024 Episodic Other skin disorders (2 sources) Localized swelling of finger of left hand; Translations: [Localized swelling, mass and lump, left upper limb] Episodic Other upper respiratory disease (1 source) Polyp of nasal cavity and/or nasal sinus; Translations: [Nasal polyp, unspecified] 02-18-2024 Episodic Other upper respiratory infections (2 sources) Chronic sinusitis; Translations: [Chronic sinusitis, unspecified] Onset: 05-23-2025 05-23-2025 Chronic Other upper respiratory infections (3 sources) Sore throat symptom; Translations: [Acute pharyngitis, unspecified] Onset: 05-27-2025 10-28-2024 Episodic Residual codes; unclassified (3 sources) Sleep apnea; Translations: [Sleep apnea, unspecified] Chronic Residual codes; unclassified (4 sources) Obstructive sleep apnea syndrome; Translations: [Obstructive sleep apnea (adult) (pediatric)] Chronic Residual codes; unclassified (1 source) Hypoxia; Translations: [Idiopathic sleep related nonobstructive alveolar hypoventilation] Chronic Residual codes; unclassified (2 sources) Obstructive sleep apnea (adult) (pediatric); Translations: [Moderate obstructive sleep apnea] Onset: 02-23-2023 Chronic Residual codes; unclassified (1 source) Idiopathic sleep related nonobstructive alveolar hypoventilation; Translations: [Nocturnal hypoxia] Onset: 02-23-2023 Chronic Residual codes; unclassified (2 sources) Tobacco use and exposure - finding; Translations: [Tobacco use] 07-15-2024 Episodic Spondylosis; intervertebral disc disorders; other back problems (1 source) Dorsalgia, unspecified; Translations: [Dorsalgia, unspecified] Onset: 07-23-2024 Episodic Substance-related disorders (20 sources) Tobacco user; Translations: [Nicotine dependence, unspecified, uncomplicated] Onset: 05-14-2008 05-14-2008 Chronic Unclassified (2 sources) Injury of finger of left hand 02-25-2025 Unclassified (1 source) Subacute cough; Translations: [Subacute cough] Onset: 05-27-2025 Unclassified (1 source) Acute cough; Translations: [Acute cough] Onset: 05-23-2025 Unclassified (1 source) Infrarenal abdominal aortic aneurysm (AAA) without rupture; Translations: [Infrarenal abdominal aortic aneurysm (AAA) without rupture] Onset: 05-12-2025 Unclassified (1 source) Infrarenal abdominal aortic aneurysm (AAA) without rupture (HCC); Translations: [Infrarenal abdominal aortic aneurysm (AAA) without rupture (HCC)] Onset: 07-01-2024 Viral infection (2 sources) Herpes zoster without complication; Translations: [Zoster without complications] 10-28-2024 Episodic Past or Other Problems Problem Classification Problem Date Documented Date Episodic/Chronic Calculus of urinary tract (20 sources) Urolithiasis ; Translations: [Urinary calculus, unspecified] Onset: 07-01-2024 Episodic Other aftercare (20 sources) Patient encounter status; Translations: [Other correction (current) drug therapy] Onset: 12-26-2017 12-26-2017 Episodic Other aftercare (20 sources) Long-term current use of drug therapy; Translations: [Other correction (current) drug therapy] Onset: 12-26-2017 12-26-2017 Episodic Other aftercare (1 source) Encounter for therapeutic drug level monitoring; Translations: [Encounter for therapeutic drug monitoring] Onset: 02-25-2025 Episodic Other and unspecified benign neoplasm (20 sources) History of polyp of colon; Translations: [Personal history of colonic polyps] Onset: 04-28-2024 04-01-2024 Episodic Other diseases of kidney and ureters (6 sources) Hydronephrosis with renal and ureteral calculous obstruction; Translations: [Calculus of ureter] Onset: 07-15-2024 07-15-2024 Episodic Residual codes; unclassified (1 source) Tobacco use; Translations: [Tobacco use] Onset: 02-25-2025 Episodic Screening and history of mental health and substance abuse codes (2 sources) Encounter for screening examination for other mental health and behavioral disorders; Translations: [Encounter for screening for depression] Onset: 02-25-2025 Episodic Results Test Name Value Interpretation Reference Range Facility [place] [facility] 05-27-2025 CNOV Office Visit (INTMWS ) CHRISTIANO BUTCHER ([id number]) 1965 M Date Time Provider Department 05/27/25 4:00 PM MARIANNE WILHELM INTMWS During your visit today, we recorded the following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 Brother Social History: Social History Tobacco Use Smoking status: Every Day Current packs/day: 0.50 Average packs/day: 0.5 packs/day for 32.0 years (16.0 ttl pk-yrs) Types: Cigarettes Smokeless tobacco: Never Tobacco comments: down to 1/2 to 3/4 PPD Vaping Use Vaping status: Former Substance Use Topics Alcohol use: Yes Comment: occassional liquor Drug use: No Medications: Current Outpatient Medications Medication Sig amLODIPine (NORVASC) 10 mg tablet Take 1 tablet by (more content not included)... Normal [facility] CBC W Auto Differential pane l (Bld)on 02-25-2025 Basophils (Bld) [#/Vol] 0.04 10*3/uL Normal <0.11 [facility] Comment on above: Order Comment: Speci men Type: BLOOD SPECIMENOrdering Facility: [facility] Address: [address] [place] [address] Performed By: #### 5 7021-8 ####[facility] LABCLIA [id number] [place] [address] [place] Basophils/100 WBC (Bld) 0.9 % Normal [facility] Comment on above: Order Comment: Speci men Type: BLOOD SPECIMENOrdering Facility: [facility] Address: [address] [place] [address] Performed By: #### 5 7021-8 ####[facility] LABCLIA [id number] [address], [place] [address] [place] Differential cell count method Nom (Bld) Auto Normal [facility] Comment on above: Order Comment: Speci men Type: BLOOD SPECIMENOrdering Facility: [facility] Address: [address] [place] [address] Performed By: #### 5 7021-8 ####[facility] LABCLIA [id number] [address], [place] [address] [place] Eosinophils (Bld) [#/Vol] 0.15 10*3/uL Normal <0.46 [facility] Comment on above: Order Comment: Speci men Type: BLOOD SPECIMENOrdering Facility: [facility] Address: [address] [place] [address] Performed By: #### 5 7021-8 ####[facility] LABCLIA [id number] [address], [place] [address] [place] Eosinophils/100 WBC (Bld) 3.4 % Normal [facility] Comment on above: Order Comment: Speci men Type: BLOOD SPECIMENOrdering Facility: [facility] Address: [address] [place] [address] Performed By: #### 5 7021-8 ####[facility] LABCLIA [id number] [place] [address] [place] Erythrocyte distribution width (RBC) [Ratio] 13.6 % Normal 11.5-15.0 [facility] Comment on above: Order Comment: Speci men Type: BLOOD SPECIMENOrdering Facility: [facility] Address: [address] [place] [address] Performed By: #### 5 7021-8 ####[facility] LABCLIA [id number] [place] [address] [place] Hematocrit (Bld) [Volume fraction] 45.6 % Normal 39.0-51.0 [facility] Comment on above: Order Comment: Speci men Type: BLOOD SPECIMENOrdering Facility: [facility] Address: [address] [place] [address] Performed By: #### 5 7021-8 ####[facility] LABCLIA [id number] [address] [address] [place] Hemoglobin (Bld) [Mass/Vol] 15.8 g/dL Normal 13.0-17.0 [facility] Comment on above: Order Comment: Speci men Type: BLOOD SPECIMENOrdering Facility: [facility] Address: [address] [place] [address] Performed By: #### 5 7021-8 ####[facility] LABIA [id number] [place] [address] [place] Immature granulocytes (Bld) [#/Vol] 10*3/uL Normal <0.10 [facility] Comment on above: Order Comment: Speci men Type: BLOOD SPECIMENOrdering Facility: [facility] Address: [address] [place] [address] Performed By: #### 5 7021-8 ####[facility] LABIA [id number] [place] [address] [place] Immature granulocytes/100 WBC (Bld) 0.2 % Normal [facility] Comment on above: Order Comment: Speci men Type: BLOOD SPECIMENOrdering Facility: [facility] Address: [address] [place] [address] Performed By: #### 5 7021-8 ####[facility] LABIA [id number] [place] [address] [place] Lymphocytes (Bld) [#/Vol] 1.19 10*3/uL Normal 1.00-4.00 [facility] Comment on above: Order Comment: Speci men Type: BLOOD SPECIMENOrdering Facility: [facility] Address: [address] [place] [address] Performed By: #### 5 7021-8 ####[facility] LABIA [id number] [place] [address] [place] Lymphocytes/100 WBC (Bld) 26.6 % Normal [facility] Comment on above: Order Comment: Speci men Type: BLOOD SPECIMENOrdering Facility: [facility] Address: [address] [place] [address] Performed By: #### 5 7021-8 ####[facility] LABIA [id number] [place] [address] [place] MCH (RBC) [Entitic mass] 32.6 pg Normal 26.0-34.0 [facility] Comment on above: Order Comment: Speci men Type: BLOOD SPECIMENOrdering Facility: [facility] Address: [address] [place] [address] Performed By: #### 5 7021-8 ####[facility] [id number] [place] [address] [place] MCHC (RBC) [Mass/Vol] 34.6 g/dL Normal 30.5-36.0 [facility] Comment on above: Order Comment: Speci men Type: BLOOD SPECIMENOrdering Facility: [facility] Address: [address] [place] [address] Performed By: #### 5 7021-8 ####[facility] LABIA [id number] [place] [address] [place] MCV (RBC) [Entitic vol] 94.0 fL Normal 80.0-100.0 [facility] Comment on above: Order Comment: Speci men Type: BLOOD SPECIMENOrdering Facility: [facility] Address: [address] [place] [address] Performed By: #### 5 7021-8 ####[facility] LABIA [id number] [place] [address] [place] Monocytes (Bld) [#/Vol] 0.54 10*3/uL Normal <0.87 [facility] Comment on above: Order Comment: Speci men Type: BLOOD SPECIMENOrdering Facility: [facility] Address: [address] [place] [address] Performed By: #### 5 7021-8 ####[facility] LABCLIA [id number] [facility] [address] [place] Monocytes/100 WBC (Bld) 12.1 % Normal [facility] Comment on above: Order Comment: Speci men Type: BLOOD SPECIMENOrdering Facility: [facility] Address: [address] [place] [address] Performed By: #### 5 7021-8 ####[facility] LABCLIA [id number] [place] [address] [place] Neutrophils (Bld) [#/Vol] 2.54 10*3/uL Normal 1.45-7.50 [facility] Comment on above: Order Comment: Speci men Type: BLOOD SPECIMENOrdering Facility: [facility] Address: [address] [place] [address] Performed By: #### 5 7021-8 ####[facility] LABCLIA [id number] [place] [address] [place] Neutrophils/100 WBC (Bld) 56.8 % Normal [facility] Comment on above: Order Comment: Speci men Type: BLOOD SPECIMENOrdering Facility: [facility] Address: [address] [place] [address] Performed By: #### 5 7021-8 ####[facility] LABCLIA [id number] [place] [address] [place] Nucleated RBC (Bld) [#/Vol] 10*3/uL Normal <0.01 [facility] Comment on above: Order Comment: Speci men Type: BLOOD SPECIMENOrdering Facility: [facility] Address: [address] [place] [address] Performed By: #### 5 7021-8 ####[facility] LABCLIA [id number] [address], [place] [address] [place] Nucleated RBC/100 WBC (Bld) [Ratio] 0.0 /100 WBC Normal [facility] Comment on above: Order Comment: Speci men Type: BLOOD SPECIMENOrdering Facility: [facility] Address: [address] [place] [address] Performed By: #### 5 7021-8 ####[facility] LABCLIA [id number] [address], [facility] [place] Platelet mean volume (Bld) [Entitic vol] 10.0 fL Normal 9.0-12.7 [facility] Comment on above: Order Comment: Speci men Type: BLOOD SPECIMENOrdering Facility: [facility] Address: [address] [place] [address] Performed By: #### 5 7021-8 ####[facility] LABIA [id number] [address], [place] [address] [place] Platelets (Bld) [#/Vol] 223 10*3/uL Normal 150-400 [facility] Comment on above: Order Comment: Speci men Type: BLOOD SPECIMENOrdering Facility: [facility] Address: [address] [place] [address] Performed By: #### 5 7021-8 ####[facility] LABCLIA [id number] [address], [facility] [place] RBC (Bld) [#/Vol] 4.85 10*6/uL Normal 4.20-6.00 [facility] Comment on above: Order Comment: Speci men Type: BLOOD SPECIMENOrdering Facility: [facility] Address: [address] [place] [address] Performed By: #### 5 7021-8 ####[facility] LABCLIA [id number] [place] [address] [place] WBC (Bld) [#/Vol] 4.47 10*3/uL Normal 3.70-11.00 [facility] Comment on above: Order Comment: Speci men Type: BLOOD SPECIMENOrdering Facility: [facility] Address: [address] [place] [address] Performed By: #### 5 7021-8 ####[facility] LABCLIA [id number] [facility] DOTSONARROY[facility]ITALMj [address] [place] CNOVon 02-25-2025 CNOV Office Visit (INTMWS ) CHRISTIANO BUTCHER ([id number]) 1965 M Date Time Provider Department 02/25/25 8:20 AM YOEL KEMP INTMWS During your visit today, we recorded the following information about you: Pulse Blood pressure Weight Height 88/minute 130/82 81.6 kg 1.708 m Yoel Kemp APRN.REFRACTORY SPECIALIST 02/25/2025 8:57 AM Signed CHIEF COMPLAINT: Patient presents with: Physical: pain in left 5th digit from an injury when fell mowing 3 weeks ago HISTORY: Christiano Butcher is a 60 year old male who presents 02/25/2025 for his Yearly Physical Exam. They are here today for a wellness exam. Is able to complete ADL's with independence. Christiano is a 60-year-old male, with a history of GERD, HTN, HLD, and sleep apnea, presenting for a wellness exam and evaluation of left fifth finger pain and swelling. Christiano reports a fall 3 weeks ago while mowing the lawn, resulting in injury to the left fifth finger. He describes the pain as severe initially, with significant swelling that has since reduced by approximately 50%. The pain is localized to the proximal interphalangeal joint and occasionally wakes him at night. He denies pain in the wrist or other fingers. 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 He denies any bruising or bleeding associated with the current injury. Christiano is currently taking Protonix for GERD, amlodipine for HTN, and a cholesterol-lowering medication. He reports good control of GERD symptoms and blood pressure when medications are taken as prescribed, but notes occasional forgetfulness, particularly on weekends, leading to exacerbation of symptoms such as heartburn and headaches. He takes all medications in the morning for convenience. He consents to updating blood work to assess cholesterol levels and is fasting today. Christiano has a history of sleep apnea but is unable to tolerate CPAP therapy due to frequent movement during sleep. He sleeps with his head elevated to manage GERD symptoms and reports an average of 5 hours of sleep per night. He denies any concerns about depression or anxiety. Christiano follows a diet that includes a significant amount of fish to help manage cholesterol levels. He is a smoker, consuming approximately 1/4 to 1/2 pack per day, and denies any interest in vaccinations. He reports occasional chest tightness and dyspnea, which he attributes to GERD and smoking. He denies any issues with swelling in his feet or legs. Christiano recently underwent a colonoscopy and reports no family history of colon or prostate cancer. He prefers to see his primary care physician once a year for wellness visits and medication refills. Other Providers: None Depression Screen Q1: Over the past two weeks, have you felt down, depressed or hopeless? No Q2: Over the past two weeks, have you felt little interest or pleasure in doing things? No Current exercise habits: Active Dietary habits: Tries to eat health Hearing difficulties: No Safe in current home environment: Yes Tobacco: Smoking about 1/4-1/2 PPD ETOH: Occasional Family History Cancer Colon: No Prostate: No Past Medical History: PAST MEDICAL HISTORY Diagnosis Date Esophageal reflux 05/14/2008 Essential hypertension, benign borderline Hypercholesteremia Nephrolithiasis Tobacco use disorder 05/14/2008 Unspecified essential hypertension 05/14/2008 Family Medical History: FAMILY HISTORY Problem Relation Age of Onset None Mother Lipids Father None Sister None Sister Coronary Artery Disease Brother Social History: Social History Tobacco Use Smoking status: Every Day Current packs/day: 0.50 Average packs/day: 0.5 packs/day for 32.0 years (16.0 ttl pk-yrs) Types: Cigarettes Smokeless tobacco: Never Tobacco comments: down to 1/2 to 3/4 PPD Vaping Use Vaping status: Former Substance Use Topics Alcohol use: Yes Comment: occassional liquor Drug use: No Allergies: ALLERGIES Allergen Reactions Chantix [Vareniclin* Intolerance Decreased mood Lipitor [Atorvastat* Intolerance muscle aches, joint aches, fatigue, GI upset Rosuvastatin Intolerance soreness and swelling -- patient states these improved after stopped this med Medications: Current Outpatient Medications Medication Sig Potassium Citrate 15 mEq TbER Take 1 tablet by mouth two times a day. amLODIPine (NORVASC) 10 mg tablet Take 1 tablet by mouth once daily. DOSE CHANGE, take one daily pantoprazole DR (PROTONIX) 40 mg tablet Take 1 tablet by mouth once daily. simvastatin (ZOCOR) 40 mg tablet Take 1 tablet by mouth daily at bedtime. No current facility-administered medications for this visit. Chronic Problem List: ACTIVE PROBLEM LIST Kidney Stone On Left Side - 07/01/2024 Renal Colic - 07/01/2024 History of Colonic Polyps - 04/28/2024 (more content not included)... Normal [facility] Comprehensive metabolic 2000 panelon 02-25-2025 Albumin [Mass/Vol] 4.4 g/dL Normal 3.9-4.9 [facility] Comment on above: Order Comment: Speci men Type: BLOOD SPECIMENOrdering Facility: [facility] Address: [address] [place] [address] Performed By: #### 2 4331-1, , ####[facility] LABCLIA [id number] [place] [address] [place] ALP [Catalytic activity/Vol] 100 U/L Normal 38-113 [facility] Comment on above: Order Comment: Speci men Type: BLOOD SPECIMENOrdering Facility: [facility] Address: [address] [place] [address] Performed By: #### 2 4331-1, , ####[facility] LABCLIA [id number] [address] [place] [address] [place] ALT [Catalytic activity/Vol] 25 U/L Normal 10-54 [facility] Comment on above: Order Comment: Speci men Type: BLOOD SPECIMENOrdering Facility: [facility] Address: [address] [place] [address] Performed By: #### 2 4331-1, , ####[facility] LABCLIA [id number] [address], [facility] [place] Anion gap [Moles/Vol] 13 mmol/L Normal 8-15 [facility] Comment on above: Order Comment: Speci men Type: BLOOD SPECIMENOrdering Facility: [facility] Address: [address] [place] [address] Performed By: #### 2 4331-1, , ####[facility] LABCLIA [id number] [place] [address] [place] AST [Catalytic activity/Vol] 26 U/L Normal 14-40 [facility] Comment on above: Order Comment: Speci men Type: BLOOD SPECIMENOrdering Facility: [facility] Address: [address] [place] [address] Performed By: #### 2 4331-1, , ####[facility] LABCLIA [id number] [place] [id number] [place] Bilirubin [Mass/Vol] 0.8 mg/dL Normal 0.2-1.3 [facility] Comment on above: Order Comment: Speci men Type: BLOOD SPECIMENOrdering Facility: [facility] Address: [address] [place] [address] Performed By: #### 2 4331-1, , ####[facility] LABCLIA [id number] [address] [place] [address] [place] Calcium [Mass/Vol] 9.4 mg/dL Normal 8.5-10.2 [facility] Comment on above: Order Comment: Speci men Type: BLOOD SPECIMENOrdering Facility: [facility] Address: [address] [place] [address] Performed By: #### 2 4331-1, , ####[facility] LABCLIA [id number] [facility] [id number] [address] [place] Chloride [Moles/Vol] 102 mmol/L Normal 98-107 [facility] Comment on above: Order Comment: Speci men Type: BLOOD SPECIMENOrdering Facility: [facility] Address: [address] [place] [address] Performed By: #### 2 4331-1, , ####[facility] LABCLIA [id number] [facility] [address] [address] [place] CO2 [Moles/Vol] 26 mmol/L Normal 22-30 [facility] Comment on above: Order Comment: Speci men Type: BLOOD SPECIMENOrdering Facility: [facility] Address: [address] [place] [address] Performed By: #### 2 4331-1, , ####[facility] LABCLIA [id number] [facility] [address] [place] [address] [place] Creatinine [Mass/Vol] 0.74 mg/dL Normal 0.73-1.22 [facility] Comment on above: Order Comment: Speci men Type: BLOOD SPECIMENOrdering Facility: [facility] Address: [address] [place] [address] Performed By: #### 2 4331-1, , ####[facility] LABCLIA [id number] [facility] [address] [place] [address] [place] Creatinine and Glomerular filtration rate.predicted panel (S/P/Bld) 105 mL/min/1.73m??? Normal >=60 [facility] Comment on above: Order Comment: Brent mccoy Type: BLOOD SPECIMENOrdering Facility: [facility] Address: [address] [place] [address] Result Comment: Karon mated Glomerular Filtration Rate (eGFR) is calculated using the 2020 CKD-EPI creatinine equation. This equation utilizes serum creatinine, sex, and age as parameters. The creatinine assay has traceable calibration to isotope dilution-mass spectrometry. Refer to KDIGO guidelines for clinical interpretation. In patients with unstable renal function, e.g. those with acute kidney injury, the eGFR may not accurately reflect actual GFR. Performed By: #### 2 4331-1, , ####[facility] [id number] [place] [id number] [place] Glucose [Mass/Vol] 98 mg/dL Normal 74-99 [facility] Comment on above: Order Comment: Brent mccoy Type: BLOOD SPECIMENOrdering Facility: [facility] Address: [address] [place] [address] Result Comment: The [place] Diabetes Association (ADA) provides guidance for cutoff values for fasting glucose and random glucose. The ADA defines fasting as no caloric intake for at least 8 hours. Fasting plasma glucose results between 100 to 125 mg/dL indicate increased risk for diabetes (prediabetes). Fasting plasma glucose results greater than or equal to 126 mg/dL meet the criteria for diagnosis of diabetes. In the absence of unequivocal hyperglycemia, results should be confirmed by repeat testing. In a patient with classic symptoms of hyperglycemia or hyperglycemic crisis, random plasma glucose results greater than or equal to 200 mg/dL meet the criteria for diagnosis of diabetes. Reference: Standards of Medical Care in Diabetes 2016, [place] [employer] Association. Diabetes Care. 2016.39(Suppl 1). Performed By: #### 2 4331-1, , ####[facility] [id number] [address] [address] [place] Potassium [Moles/Vol] 4.0 mmol/L Normal 3.7-5.1 [facility] Comment on above: Order Comment: Brent mccoy Type: BLOOD SPECIMENOrdering Facility: [facility] Address: [address] [place] [address] Performed By: #### 2 4331-1, , ####[facility] LABCLIA [id number] [address] [address] [place] Protein [Mass/Vol] 7.3 g/dL Normal 6.3-8.0 [facility] Comment on above: Order Comment: Speci men Type: BLOOD SPECIMENOrdering Facility: [facility] Address: [address] [place], [place] [address] Performed By: #### 2 4331-1, , ####[facility] LABIA [id number] [address] [address] [place] Sodium [Moles/Vol] 141 mmol/L Normal 136-144 [facility] Comment on above: Order Comment: Speci men Type: BLOOD SPECIMENOrdering Facility: [facility] Address: [address] [place], [place] [address] Performed By: #### 2 4331-1, , ####[facility] LABIA [id number] [address] [address] [place] Urea nitrogen [Mass/Vol] 13 mg/dL Normal 9-24 [facility] Comment on above: Order Comment: Speci men Type: BLOOD SPECIMENOrdering Facility: [facility] Address: [address] [place] [address] Performed By: #### 2 4331-1, , ####[facility] LABIA [id number] [address] [address] [place] Lipid 1996 panelon 5 Cholesterol [Mass/Vol] 192 mg/dL Normal <200 [facility] Comment on above: Order Comment: Speci men Type: BLOOD SPECIMENOrdering Facility: [facility] Address: [address] [place] [address] Result Comment: <200 mg/dL, Desirable 200-239 mg/dL, Borderline high >239 mg/dL, High Performed By: #### 2 4331-1, , ####[facility] LABCLIA [id number] [facility] [id number] [place] [address] [place] Cholesterol in HDL [Mass/Vol] 70 mg/dL Normal >39 [facility] Comment on above: Order Comment: Speci men Type: BLOOD SPECIMENOrdering Facility: [facility] Address: [address] [place] [address] Result Comment: 40-5 9 mg/dL, Acceptable >59 mg/dL, High: Negative risk factor for coronary heart disease <40 mg/dL, Low: Positive risk factor for coronary heart disease Performed By: #### 2 4331-1, , ####[facility] LABCLIA [id number] [address] [address] [place] Cholesterol in LDL [Mass/Vol] 108 mg/dL High <100 [facility] Comment on above: Order Comment: Speci men Type: BLOOD SPECIMENOrdering Facility: [facility] Address: [address] [place] [address] Result Comment: <100 mg/dL, Optimal 100-129 mg/dL, Near optimal/above optimal 130-159 mg/dL, Borderline high 160-189 mg/dL, High >189 mg/dL, Very high Secondary prevention optimal LDL Cholesterol levels are recommended to be <70 mg/dL LDL cholesterol is calculated using the Wright-NIH equation. Performed By: #### 2 4331-1, , ####[facility] LABCLIA [id number] [facility] [id number] [place] [address] [place] Cholesterol in LDL/Cholesterol in HDL [Mass ratio] 1.54 {ratio} Normal <2.54 [facility] Comment on above: Order Comment: Speci men Type: BLOOD SPECIMENOrdering Facility: [facility] Address: [address] [place] [address] Result Comment: Declan sánchez: 1. National Cholesterol Education Program ATP III Guideline At-A-Glance Quick Desk Reference: National Heart, Lung, and Blood [place]. National Institutes of Health. 2001: NIH Publication No. 01-3305. 2. An International Atherosclerosis Society position paper: global recommendations for the management of dyslipidemia: executive summary, Atherosclerosis. 2014: 232(2):410-413. Performed By: #### 2 4331-1, , ####[facility] LABCLIA [id number] [address] [address] [place] Cholesterol in VLDL [Mass/Vol] 13 mg/dL Normal <30 [facility] Comment on above: Order Comment: Brent mccoy Type: BLOOD SPECIMENOrdering Facility: [facility] Address: [address] [place] [address] Performed By: #### 2 4331-1, , ####[facility] LABCLIA [id number] [address] [address] [place] Cholesterol non HDL [Mass/Vol] 122 mg/dL Normal <130 [facility] Comment on above: Order Comment: Brent mccoy Type: BLOOD SPECIMENOrdering Facility: [facility] Address: [address] [place] [address] Result Comment: <130 mg/dL, Optimal 130-159 mg/dL, Near optimal/above optimal 160-189 mg/dL, Borderline high 190-219 mg/dL, High >219 mg/dL, Very high Secondary prevention optimal non HDL Cholesterol levels are recommended to be <100 mg/dL Performed By: #### 2 4331-1, , ####[facility] LABCLIA [id number] [address] [address] [place] Cholesterol.total/C holesterol in HDL [Mass ratio] 2.74 {ratio} Normal <5.10 [facility] Comment on above: Order Comment: Brent mccoy Type: BLOOD SPECIMENOrdering Facility: [facility] Address: [address] [place], [place] [address], [place] [address] Performed By: #### 2 4331-1, , ####[facility] LABCLIA [id number] [address] [address] [place] FASTING TIME 12 hrs Normal [facility] Comment on above: Order Comment: Speci men Type: BLOOD SPECIMENOrdering Facility: [facility] Address: [address] [place], [place] [address] Performed By: #### 2 4331-1, , ####[facility] LABCLIA [id number] [address] [address] [place] Triglyceride [Mass/Vol] 79 mg/dL Normal <150 [facility] Comment on above: Order Comment: Speci men Type: BLOOD SPECIMENOrdering Facility: [facility] Address: [address] [place], [place] [address] Result Comment: <150 mg/dL, Normal 150-199 mg/dL, Borderline high 200-499 mg/dL, High >499 mg/dL, Very high Performed By: #### 2 4331-1, , ####[facility] LABCLIA [id number] [address] [address] [place] Magnesium SerPl-mCncon 02-25 Magnesium [Mass/Vol] 2.0 mg/dL Normal 1.7-2.3 [facility] Comment on above: Order Comment: Speci men Type: BLOOD SPECIMENOrdering Facility: [facility] Address: [address] [place] [address] [place] [address] Performed By: #### 2 4331-1, , ####[facility] LABCLIA [id number] [address] [address] [place] XR HAND 3V PA/LAT/OBL LTon 0 02-25-2025 XR HAND 3V PA/LAT/OBL LT * * *Final Report* * * DATE OF EXAM: Feb 25 2025 9:18AM WOX [id number] - XR HAND 3V PA/LAT/OBL LT / PROCEDURE REASON: Injury of left little finger, initial encounter * * * * Physician Interpretation * * * * PROCEDURE: Left hand INDICATION: Injury of left little finger, initial encounter .mowing 3 weeks ago, fell and jammed left 5th finger pain and swelling in finger TECHNIQUE: XR HAND 3V PA/LAT/OBL LT COMPARISON: 12/13/2022 FINDINGS: Small bony density to the ulnar aspect of the 5th PIP joint. This could represent a small fracture fragment, age uncertain. Although not present previously, this is not clearly acute. Joint spaces are maintained. There is soft tissue swelling in the 5th finger. IMPRESSION: Probable small fracture from the base of the 5th middle phalanx, age uncertain Night Auditor: GILBERT Transcribe Date/Time: Feb 28 2025 9:17A Dictated by : DAVION JENNINGS MD This examination was interpreted and the report reviewed and electronically signed by: DAVION JENNINGS MD on Feb 28 2025 9:18AM EST [id number] Normal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 and without status migrai*10/29/2019 History of colonic polyps [Z86.0100] 04/28/2024 Kidney stone on left side [N20.0] 07/01/2024 Renal colic [N23] 07/01/2024 Letter Text Encounter Status:Closed by DALIA GILL on 07/28/24 [facility] CNOVon 07-25-2024 CNOV Office Visit (UROLMD ) CHRISTIANO BUTCHER ([id number]) 1965 M Date Time Provider Department 07/25/24 3:00 PM WILL NAM UROSEVEN During your visit today, we recorded the following information about you: Pulse Respiration Blood pressure Weight 114/minute 16/minute 122/90 83 kg Height 1.753 m Will Nam MD 07/25/2024 3:21 PM Signed [facility] [place] Patient presents for cystoscopy and stent removal. S/p left ureteroscopy, laser lithotripsy and stent placement on 07/18/[address] Jane. Stone analysis: Lab Results Component Value Date CSCOMP 80% Calcium Phosphate 07/18/2024 CSCOMP2 20% Calcium Oxalate Dihydrate 07/18/2024 Interval history: Doing well. Some frequency with stent in place. Pt ID verified with patient: Yes Procedure verified with patient: Yes Procedure confirmed with physician and support manager: Yes UNIVERSAL PROTOCOL / SAFETY CHECKLIST Procedure to be Performed: Cystoscopy, left stent removal Sign In: A Moment of CARE was completed. Personnel directly involved with the procedure wore the appropriate PPE (Personal Protective Equipment). Patient/Surrogate Stated/Verified: PATIENT VERIFIED(optional for EMERGENT procedures): Patient name, Date of , Relevant allergies, and The intended procedure Time Out Communication: Intended patient and procedure match the source documents. Consent documented and matches the intended procedure. Sign Out: SIGN OUT (optional for EMERGENT procedures): No specimen collected. All instruments, equipment, possible retained foreign bodies accounted for. Will Nam MD CYSTOSCOPY PROCEDURE NOTE: A urinalysis was performed revealing no evidence of infection. Antibiotics: Keflex The benefits, risks, alternatives of the cystoscopy procedure and personnel were discussed with the patient. The verbal consent was obtained and the patient agrees to proceed. Procedure: The patient was placed on the procedure table in the supine position and prepped and draped in the usual sterile fashion. 2% Lidocaine Jelly was placed per urethra as an anesthetic in the standard fashion. Once adequate local anesthesia was achieved, the tip of the flexible cystoscope was carefully placed into the urethra under direct visual guidance. The scope was negotiated per urethra with no evidence of stricture into the bladder. The left stent was grasped with stent retrieval device and removed intact. At the conclusion of the procedure, the flexible cystoscope was removed atraumatically. The patient tolerated the procedure without complications. Patient was given standard post-procedure instructions, and was directed to complete the course of oral antibiotics and increase oral fluid intake as directed. ASSESSMENT/PLAN: 1. Hydronephrosis with ureteral calculus - ICD9: 592.1, 591, ICD10: N13.2 (primary diagnosis) 2. Bilateral nephrolithiasis - ICD9: 592.0, ICD10: N20.0 Patient has follow-up visit with Ervin Nelson in August. Check KUB and ultrasound prior to that visit. Will Nam MD Referring Provider: SELF [[id number]] Allergies As of Date: 07/25/2024 Noted Allergy Reaction CHANTIX (VARENICLINE) 04/19/2018 5 - Intolerance Comments: Decreased mood LIPITOR (ATORVASTATIN) 08/02/2016 5 - Intolerance Comments: muscle aches, joint aches, fatigue, GI upset ROSUVASTATIN 03/07/2024 5 - Intolerance Comments: soreness and swelling -- patient states these improved after stopped this med Date Reviewed: 07/25/2024 Reviewed by: Robert Ahumada MA - Fully Assessed Reason for Visit: Kidney Stones [30422] Primary Visit Diagnosis:Hydronephrosis with ureteral calculus [N13.2] Other Visit Diagnosis:Bilateral nephrolithiasis [N20.0] Order(s):UA DIP, URINE (POC) [[id number]] Order #: [id number]. #:[id number] -LAB cephALEXin 500 mg cap(s) (KEFLEX)Disp: Rfl: lidocaine urojet 2 % 11 mL topical gel (GLYDO)Disp: Rfl: XR ABDOMEN 1V SUPINE [[id number]] Order #: [id number] FUTURE KIDNEY/BLADDER [[id number]] Order #: [id number] FUTURE Prescriptions as of 07/25/2024 - oxybutynin XL (DITROPAN XL) 5 mg 24 hr tablet Take 1 tablet by mouth once daily as needed (bladder pain with stent in place, stent pain). - tamsulosin (FLOMAX) 0.4 mg Take 2 capsules by mouth once daily. - polyethylene glycol 3350 17 gram/dose powder Drink a mix of 1 scoop in 8oz of water/beverage once daily as needed for constipation. - simvastatin (ZOCOR) 40 mg tablet Take 1 tablet by mouth daily at bedtime. - amLODIPine (NORVASC) 10 mg tablet Take 1 tablet by mouth once daily. DOSE CHANGE, take one daily - pantoprazole DR (PROTONIX) 40 mg tablet Take 1 tablet by mouth once daily. Facility-Administered Medications as of 07/25/2024 - cephALEXin 500 mg cap(s) (KEFLEX) - lidocaine urojet 2 % 11 mL topical gel (GLYDO) Problem List As O (more content not included)... Normal [facility] UA DIP, URINE (POC)on 2023 BILIRUBIN UA (POCT) Negative Negative [facility] CLARITY UA (POCT) [facility] COLOR UA (POCT) Yellow [facility] GLUCOSE UA (POCT) Negative Negative mg/dL [facility] Hemoglobin Ql (U) Large Abnormal Negative [facility] Interpretation and review of laboratory results Abnormal [facility] KETONE UA (POCT) Negative Negative mg/dL [facility] LEUKOCYTES UA (POCT) Negative Negative [facility] NITRITE UA (POCT) Negative Negative [facility] PH UA (POCT) 6.0 4.5 - 8.0 [facility] Protein Ql (U) 30 mg/dL Abnormal Negative [facility] SPECIFIC GRAVITY UA (POCT) 1.025 1.005 - 1.030 [facility] UROBILINOGEN UA (POCT) 0.2 Normal E.U./dL [facility] Location:[facility], [address], [place], [id number] [place] [address] POINT OF CARE [facility] [id number] 07-18-2024 [id number] HNO ID: [id number] Author: MARIE DELATORRE RN Service: ? Author Type: Registered Nurse Type: [id number] Filed: 07/18/2024 11:06 Note Text: May take Tylenol at 2:00 pm. May take Ibuprofen at 4:30 pm. Alternate Tylenol and Ibuprofen every 3 hours as needed. Normal [facility] ANES POSTPROC EVALon 024 ANES POSTPROC EVAL HNO ID: [id number] Author: DAMON BALDWIN MD Service: Anesthesiology Author Type: Anesthesiologist Type: Anesthesia Postprocedure Evaluation Filed: 07/18/2024 10:23 Note Text: POST ANESTHESIA EVALUATION NOTE : 1965 Procedure Summary Date: 07/18/24 Room / Location: [address] / [facility] Anesthesia Start: 0843 Anesthesia Stop: 1010 Procedure: CYSTOURETHROSCOPY W/ URETEROSCOPY AND/OR PYELOSCOPY W/ LITHOTRIPSY INCLUDE INSERTION OF INDWELLING URETERAL STENT (Left: Ureter) Diagnosis: Nephrolithiasis (Nephrolithiasis [N20.0]) Surgeons: Won Rodriguez MD Responsible Provider: Damon Baldwin MD Anesthesia Type: general ASA Status: 3 Anesthesia Type: general Airway Type: LMA Last Vitals Vitals Value Taken Time BP 133/94 07/18/24 1015 Temp 36 07/18/24 1022 Pulse 78 07/18/24 1022 Resp 16 07/18/24 1015 SpO2 96 % 07/18/24 1022 Vitals shown include unfiled device data. Post Anesthesia Patient Status Patient Evaluation: PACU. PACU/ICU Patient Condition: stable. Anticipated Disposition: phase 2 then home. Neurological Status: aware and responsive. Pulmonary Status: breathing comfortably on room air Airway Control: returned to baseline unsupported. Cardiovascular Status: stable. Pain Management: clinically adequate - multimodal analgesia pain management approach Postoperative Hydration: acceptable. Intraoperative Events: no significant anesthesia events Recommendation: continue current plan of care. Anesthesia Observations No Documentation SIGNATURE: Damon Baldwin MD PATIENT NAME: Christiano Butcher DATE: July 18, 2024 TIME: 10:22 AM CSN: [id number] [facility] ANES PRE-OPon 07-18-2024 ANES PRE-OP HNO ID: [id number] Author: DAMON BALDWIN MD Service: Anesthesiology Author Type: Anesthesiologist Type: Anesthesia Preprocedure Evaluation Filed: 07/18/2024 08:03 Note Text: ANESTHESIOLOGY DAY OF SURGERY NOTE : 1965 Procedure Information Date/Time: 07/18/24 0845 Procedure: CYSTOURETHROSCOPY W/ URETEROSCOPY AND/OR PYELOSCOPY W/ LITHOTRIPSY INCLUDE INSERTION OF INDWELLING URETERAL STENT (Left: Ureter) [facility] Surgeons: Won Rodriguez MD Estimated body mass index is 27.35 kg/m? as calculated from the following: Height as of 03/31/24: 175.3 cm (5' 9). Weight as of 07/01/24: 84 kg (185 lb 3 oz). Most recent hematocrit and potassium results: Hematocrit 43.5 07/11/2024 Potassium 4.7 07/11/2024 Relevant Problems CARDIO (+) Migraine without aura and without status migrainosus, not intractable (+) Primary hypertension GI (+) Esophageal reflux (+) Gastroesophageal reflux disease -RENAL (+) Kidney stone on left side NEURO-PSYCH (+) History of colonic polyps (+) Migraine without aura and without status migrainosus, not intractable I - PHYSICAL EVALUATION AIRWAY Patient intubated: No. Tracheostomy tube not present Mallampati: II. TM distance: >3 FB. Neck ROM: full ROM without neurological symptoms. Short neck: no. Thick neck: no DENTAL Dental findings: poor dentition. Additional exam findings: no II - ANESTHESIA PLAN ASA Score: 3 Anesthetic Plan: general Airway type: LMA NPO Status: adequate Beta Yovana Monitoring Plan Monitoring plan: Standard ASA. Post Procedure Analgesic Plan Postoperative analgesic plan: parenteral or oral opioids. Informed Consent Anesthetic risks, benefits, alternatives, personnel and consent discussed: yes. Patient / Responsible Democrat agrees to proceed: yes Patient / Surrogate agrees to blood products: blood products not planned DNR status not reviewed with patient and/or family prior to surgery. Significant changes in the patient condition since the History and Physical, not otherwise documented in primary service progress note: no. Potential Anesthesia issues that may suggest increased risk of complications or contraindication to planned procedure: none. No vitals data found for the desired time range. Facility-Administered Medications as of 07/18/2024 Medication Dose Route Frequency - lidocaine (PF) 10 mg/mL (1 %) 1-2 mg injection (XYLOCAINE) 0.1-0.2 mL INTRADERMAL PRN - NaCl 0.9% iv flush bag 20 mL INTRAVENOUS PRN - ceFAZolin iv piggyback 2 g in D5W (iso-osmotic) 100 mL (ANCEF) 2 g INTRAVENOUS Pre-Op Once - acetaminophen 1,000 mg tab(s) (TYLENOL) 1,000 mg ORAL As Directed - promethazine 12.5 mg tab(s) (PHENERGAN) 12.5 mg ORAL ONCE Outpatient Medications as of 07/18/2024 Medication Sig - tamsulosin (FLOMAX) 0.4 mg Take 2 capsules by mouth once daily. - amLODIPine (NORVASC) 10 mg tablet Take 1 tablet by mouth once daily. DOSE CHANGE, take one daily - pantoprazole DR (PROTONIX) 40 mg tablet Take 1 tablet by mouth once daily. - [] oxyCODONE-acetaminophen (PERCOCET) 5-325 mg tablet Take 1 tablet by mouth every 6 hours as needed for pain for up to 5 days. - polyethylene glycol 3350 17 gram/dose powder Drink a mix of 1 scoop in 8oz of water/beverage once daily as needed for constipation. - simvastatin (ZOCOR) 40 mg tablet Take 1 tablet by mouth daily at bedtime. I have interviewed and examined the patient. I have reviewed the medical record and/or the pre-anesthesia evaluation, pertinent labs, and test results. This contains updated information obtained within 48 hours of Surgery/Procedure. SIGNATURE: Damon Baldwin MD PATIENT NAME: Christiano Butcher DATE: July 18, 2024 TIME: 8:02 AM CSN: [id number] [facility] HISTORY PHYSICALon HISTORY PHYSICAL HNO ID: [id number] Author: WON RODRIGUEZ MD Service: Urology Author Type: Physician Type: H&P Filed: 07/18/2024 08:34 Note Text: Preoperative HANDP Chief complaint: Patient is here today for management of left kidney and ureteral stones History, update from last visit: Previous notes, reviewed, no significant new changes, patient is doing well, denies fever, abdominal pain, nausea or vomiting, no new voiding symptoms or constipation. Examination: Patient is awake and alert , oriented to time, person, place. Chest: unlabored breathing, equal on both sides. Heart: regular rate and rhythm, normal peripheral pulsations. Abdomen: Soft, non tender, non distended All lab results, imaging reviewed and there was no change. Assessment and plan of management: Patient is here today for management of left kidney and ureteral stones Plan for left urs ll and temporary stent placement All patient's questions were discussed in details, outline of procedure and recovery discussed. Surgical site : left ureter and kidney Ancef Periop Won Rodriguez MD July 18, 2024 8:34 AM [facility] OPERATIVE NOon 07-18-2024 OPERATIVE NO HNO ID: [id number] Author: WON RODRIGUEZ MD Service: Urology Author Type: Physician Type: Operative Report Filed: 07/18/2024 10:04 Note Text: OPERATIVE/PROCEDURE REPORT LOG ID: [id number] NAME: Christiano Butcher : 1965 Surgery/Procedure Date: 07/18/2024 Incision/Procedure Start Time: 8:59 AM Incision Close/Procedure End Time: 9:57 AM Surgeon(s)/Proceduralist(s) and Machine Candle Molder(s): Surgeons and Role: * Won Rodriguez MD - Primary Operation: Cystourethroscopy with: Retrograde ureteral catheterization Ureteroscopy and pyeloscopy with lithotripsy, stone extraction Retrograde pyelogram Retrograde insertion of double J ureteral stent Physician time for fluoroscopic imaging and interpretation <1hr Anatomic Site: Kidney, Laterality: Left Ureter, Laterality: Left Approach: Endoscopic Device/ Drain: 6Fr x 26 cm double J ureteral stent EBL: 0ml IV Fluid Intake: 800ml Urine Output: Not applicable/ Not measured Specimens/Cultures: ID Type Source Tests Collected by Time Destination 1 : Left Kidney Stone Calculus Calculi or Calculus CALCULI ANALYSIS Won Rodriguez MD 07/18/2024 9:29 AM Anesthesia: General Findings: [place]: Primary stone 9 mm mid ureter; Additional stone(s) 3x 5-6 mm renal stones Lithotripsy Technique: fragmenting and basket extraction Laser: 273-micron Fiber Dust thulium fiber laser; 1 J and 5 Hz Irrigation: Nakina bag; max pressure gravity Anatomic Findings: ureteral stone spiky and impacted. Renal stones spiky and removed intact. Scott's plaques and papillary craters. Other: high bladder neck and very tight sphincter Operative Indications: This is a 59 year old year old male with left nephrolithiasis and with an obstructing ureteral stone. Calculus/ calculi were identified on preoperative imaging and the patient after discussing the risks, benefits, and alternatives of the procedure has elected to pursue endoscopic management. Procedure Details: The patient was correctly identified and the operative plan was confirmed with the patient and the operative team. An appropriate dose of antibiotics (Ancef) was administered intravenously within 1 hour prior to the procedure and sequential compression devices were applied to the lower extremities and activated prior to induction of anesthesia. General anesthesia was induced. The patient was placed in lithotomy position. All pressure points were padded per protocol and the operative area was prepped and draped in the standard sterile fashion. Manager Hiv fluoroscopy was performed with a laterality marker on the operative side, and the calculus identified on preoperative imaging appeared radiopaque in the ureter. A rigid cystoscope was inserted into the urethral meatus, and cystourethroscopy was performed. A laterality pause was performed. With 5Fr ureteral catheterization, a 0.038 glidewire was then passed through the left ureteral orifice advanced in retrograde fashion to the stone under fluoroscopic guidance. It did not pass the stone suggesting the stone was impacted. A rigid ureteroscope was advanced alongside the wire to the distal ureter but could not advance beyond the pelvis. A second wire, 0.038 Soloflex wire, was advanced through the scope to the same location and the scope was removed. A BD Aptra flexible ureteroscope was then advanced over the working wire to the stone. Systematic pyeloscopy was performed. Laser lithotripsy was performed with a 273 micron laser fiber primarily at settings of 1 Joules and 5 Hz. The stone was noted to fragmented into dust and submillimeter particles considered small enough to pass spontaneously. The stone fragments were removed with the Halo basket and placed in the bladder. The scope was then advanced to the renal pelvis and the renal stones were serially identified and removed intact. The scope was advanced to the renal pelvis. Debris was evacuated. Pop dusting of any very small fragments at 0.3J and 60Hz. A limited retrograde pyelogram was performed and there were no filling defects or extravasation noted. The scope was then removed in tandem with the ureteral access sheath, and the ureter was examined upon removal of the scope, and there were no residual fragments or injury along the course of the ureter. A 6Fr x 26cm double J ureteral stent was placed over the guidewire with fluoroscopy guidance and with confirmation of proximal and distal curls in the renal pelvis and bladder, respectively. The bladder was drained, stone fragments sent for analysis, the patient repositioned in supine position, extubated and transferred to the PACU in stable condition. Accidental Punctures or Lacerations: Not applicable Complications: None Retrograde pyelogram and Ureteral stent placement Patient Name - Christiano Butcher Date - July 18, 2024 Imaging exam - Retrograde Pyelogram, ureteral stent placement Number of i (more content not included)... Normal [facility] Maximilian 07-14-2024 AMELIA Telephone ([email or web address]) CHRISTIANO BUTCHER ([id number]) 1965 M Date Time Provider Department 07/14/24 WON RODRIGUEZ During your visit today, we recorded the following information about you: Kary Brush 07/14/2024 8:23 AM Signed Patient scheduled for surgery on 07/[address] [facility] [address] for CYSTOURETHROSCOPY W/ URETEROSCOPY AND/OR PYELOSCOPY W/ LITHOTRIPSY INCLUDE INSERTION OF INDWELLING URETERAL STENT [[id number]] - Ureter - Left . Patient will be informed of surgery time the day before surgery between 1pm-4pm. PACC not needed Allergies As of Date: 07/14/2024 Noted Allergy Reaction CHANTIX (VARENICLINE) 04/19/2018 5 - Intolerance Comments: Decreased mood LIPITOR (ATORVASTATIN) 08/02/2016 5 - Intolerance Comments: muscle aches, joint aches, fatigue, GI upset ROSUVASTATIN 03/07/2024 5 - Intolerance Comments: soreness and swelling -- patient states these improved after stopped this med Date Reviewed: 07/02/2024 Reviewed by: Jamilah Comer, FERMIN - Fully Assessed Prescriptions as of 07/14/2024 - oxyCODONE-acetaminophen (PERCOCET) 5-325 mg tablet Take 1 tablet by mouth every 6 hours as needed for pain for up to 5 days. - tamsulosin (FLOMAX) 0.4 mg Take 2 capsules by mouth once daily. - keTORolac (TORADOL) 10 mg tablet Take 10 mg by mouth every 6 hours as needed. - cephALEXin (KEFLEX) 500 mg capsule three times a day. - meloxicam (MOBIC) 15 mg tablet Take 1 tablet by mouth once daily. for pain. Take with food. Start this after you have completed toradol if still having pain. - polyethylene glycol 3350 17 gram/dose powder Drink a mix of 1 scoop in 8oz of water/beverage once daily as needed for constipation. - simvastatin (ZOCOR) 40 mg tablet Take 1 tablet by mouth daily at bedtime. - amLODIPine (NORVASC) 10 mg tablet Take 1 tablet by mouth once daily. DOSE CHANGE, take one daily - pantoprazole DR (PROTONIX) 40 mg tablet Take 1 tablet by mouth once daily. - fluticasone (FLONASE) 50 mcg/actuation nasal spray Use 2 Sprays in each nostril once daily. Rinse mouth after use. - CPAP/BIPAP/OTHER Auto titrating PAP device 5-15 ?cmH2O with humidification, small ResMed AirFit P10 nasal pillows mask ?and clinical follow up with data download after 1 month to ensure the pressure range is appropriate. Problem List As Of Date 07/14/2024 Noted Resolved OTHER HAMMER TOE [M20.40] 07/27/2005 ESOPHAGEAL REFLUX [K21.9] 05/14/2008 TOBACCO USE DISORDER [F17.200] 05/14/2008 Primary hypertension [I10] Hypercholesteremia [E78.00] 01/15/2015 Encounter for long-term (current) use of medica*12/26/2017 Encounter for screening for malignant neoplasm *12/26/2017 Gastroesophageal reflux disease [K21.9] 12/26/2017 Migraine without aura and without status migrai*10/29/2019 History of colonic polyps [Z86.0100] 04/28/2024 Kidney stone on left side [N20.0] 07/01/2024 Renal colic [N23] 07/01/2024 Encounter Status:Closed by KARY BRUSH on 07/14/24 [facility] CNPN Telephone (JASONHEF) CHRISTIANO BUTCHER ([id number]) 1965 M Date Time Provider Department 07/14/24 CLAUS DELATORRE During your visit today, we recorded the following information about you: Claus Delatorre 07/14/2024 10:06 AM Signed Called PT unable to leave a [facility] for Perioperative Medicine Pre-Anesthesia Consultation Clinic PATIENT PREOPERATIVE INSTRUCTIONS No ref. provider found has scheduled you for your procedure at this surgery center: [facility]: [phone] --[address], [place] [address]. Please read below carefully for your personalized instructions. Dietary Restrictions: - No solid food after midnight. - You may have 12 ounces of clear liquids (water, clear juices such as apple juice or gatorade, carbonated beverages, clear tea, black coffee, jello) until 2 hours before scheduled arrival at facility. - Do not drink any alcohol after midnight the night before your surgery. Medications: Unless instructed differently below, stay on all of your medications until your surgery. Hold Toradol until after surgery Hold Mobic until after surgery If you start any new medications after today's visit, please contact your surgeon. If you take any medications for erectile dysfunction-Cialis (Tadalafil), Levitra, Staxyn (Vardenafil) Viagra (Sildenenafil please do not take these for 48 hours before surgery. If you start any new medications after today's visit, please contact the surgeon's office. Blood Thinning Medications: - Stop NSAIDS (Ibuprofen, Advil, Aleve, Motrin, Celebrex, Mobic, etc.) 7 days before surgery, as directed by your surgeon. - Stop Aspirin 7 days before surgery, as directed by your surgeon. - Stop Vitamin E, ALL multi-vitamins, herbals and dietary supplements 7 days before surgery. - You may take Tylenol (Acetaminophen) or any of your pain medications that do not contain aspirin or NSAIDS as needed. Important Reminders: - If you are prescribed inhalers for breathing, continue using them. - Candy, mints, and tobacco products are NOT permitted the morning of surgery. - Hearing aids, dentures and glasses may be worn the morning of surgery. - NO jewelry, body piercings, makeup, hairpins or contacts are to be worn the day of surgery. If you develop symptoms such as a fever, cold, or flu, or have other changes to your health within TWO DAYS of scheduled surgery or the morning of surgery, please contact the surgery center above. Personal Belongings: -Please have photo ID and insurance cards. -If you do not have a copy of advance directives on file with us, please bring a copy with you on the day of surgery. - Leave ALL valuables and money at home or with family members. For Outpatient Procedures: - YOU MUST HAVE A RESPONSIBLE SHAPER OPERATOR TAKE YOU HOME. A FOXING CLOSER OR TRACK HELPER CANNOT BE MADE A RESPONSIBLE SHAPER OPERATOR. - We recommend that a responsible person stays with you overnight to take care of you. - You cannot stay in a hotel alone after outpatient surgery. You will not be permitted to have your surgery, if you do not have someone to take care of you. Arrival Time for Surgery: - The Surgery Center or hospital where you are having surgery will call the afternoon before surgery (or Sunday for Sunday surgery) with a scheduled arrival time. - If you have not heard by 4 pm, please contact the surgery center above. Please be aware that emergency situations arise, which may delay or change your surgical time. If this happens, we will notify you as soon as possible and regret any inconvenience. If you already have an Advance Directive, please fax a copy to [phone] or email to for it to be added to your chart. If you do not have an Advance Directive, you can find the appropriate form and more information at [email or web address]. We recommend that you complete the Advance Directive form found on the website and bring it with you the day of your surgery. It can be witnessed and scanned into your chart that day. Claus Delatorre Allergies As of Date: 07/14/2024 Noted Allergy Reaction CHANTIX (VARENICLINE) 04/19/2018 5 - Intolerance Comments: Decreased mood LIPITOR (ATORVASTATIN) 08/02/2016 5 - Intolerance Comments: muscle aches, joint aches, fatigue, GI upset ROSUVASTATIN 03/07/2024 5 - Intolerance Comments: soreness and swelling -- patient states these improved after stopped this med Date Reviewed: 07/02/2024 Reviewed by: Jamilah Comer RN - Fully Assessed Reason for Visit: Appointment [[id number]] Prescriptions as of 07/14/2024 - oxyCODONE-acetaminophen (PERCOCET) 5-325 mg tablet Take 1 tablet by mouth every 6 hours as needed for pain for up to 5 days. - tamsulosin (FLOMAX) 0.4 mg Take 2 capsules by mouth once daily. - keTORolac (TORADOL) 10 mg tablet Take 10 mg by mouth every 6 marija (more content not included)... Normal [facility] Basic metabolic 2000 panelon 07-11-2024 Anion gap [Moles/Vol] 13 mmol/L Normal 8-15 [facility] Comment on above: Order Comment: Speci men Type: BLOOD SPECIMENOrdering Facility: [facility] Address: [address] [place] [address] Performed By: #### 2 4321-2 ####[facility] LABCLIA [id number] [place] [address] [place] Calcium [Mass/Vol] 9.2 mg/dL Normal 8.5-10.2 [facility] Comment on above: Order Comment: Speci men Type: BLOOD SPECIMENOrdering Facility: [facility] Address: [address] [place] [address] Performed By: #### 2 4321-2 ####[facility] LABCLIA [id number] [place] [address] [place] Chloride [Moles/Vol] 103 mmol/L Normal 98-107 [facility] Comment on above: Order Comment: Speci men Type: BLOOD SPECIMENOrdering Facility: [facility] Address: [address] [place] [address] Performed By: #### 2 4321-2 ####[facility] LABCLIA [id number] [place] [address] [place] CO2 [Moles/Vol] 25 mmol/L Normal 22-30 [facility] Comment on above: Order Comment: Speci men Type: BLOOD SPECIMENOrdering Facility: [facility] Address: [address] [place] [address] Performed By: #### 2 4321-2 ####[facility] LABCLIA [id number] [place] [address] [place] Creatinine [Mass/Vol] 0.94 mg/dL Normal 0.73-1.22 [facility] Comment on above: Order Comment: Speci men Type: BLOOD SPECIMENOrdering Facility: [facility] Address: [address] [place] [address] Performed By: #### 2 4321-2 ####[facility] LABCLIA [id number] [place] [address] [place] Creatinine and Glomerular filtration rate.predicted panel (S/P/Bld) 95 mL/min/1.73m??? Normal >=60 [facility] Comment on above: Order Comment: Speci men Type: BLOOD SPECIMENOrdering Facility: [facility] Address: [address] [place] [address] Result Comment: Karon mated Glomerular Filtration Rate (eGFR) is calculated using the 2020 CKD-EPI creatinine equation. This equation utilizes serum creatinine, sex, and age as parameters. The creatinine assay has traceable calibration to isotope dilution-mass spectrometry. Refer to KDIGO guidelines for clinical interpretation. In patients with unstable renal function, e.g. those with acute kidney injury, the eGFR may not accurately reflect actual GFR. Performed By: #### 2 4321-2 ####[facility] LABIA [id number] [place] [address] [place] Glucose [Mass/Vol] 81 mg/dL Normal 74-99 [facility] Comment on above: Order Comment: Brent mccoy Type: BLOOD SPECIMENOrdering Facility: [facility] Address: [address] [place] [address] Result Comment: The [place] Diabetes Association (ADA) provides guidance for cutoff values for fasting glucose and random glucose. The ADA defines fasting as no caloric intake for at least 8 hours. Fasting plasma glucose results between 100 to 125 mg/dL indicate increased risk for diabetes (prediabetes). Fasting plasma glucose results greater than or equal to 126 mg/dL meet the criteria for diagnosis of diabetes. In the absence of unequivocal hyperglycemia, results should be confirmed by repeat testing. In a patient with classic symptoms of hyperglycemia or hyperglycemic crisis, random plasma glucose results greater than or equal to 200 mg/dL meet the criteria for diagnosis of diabetes. Reference: Standards of Medical Care in Diabetes 2016, [place] [employer] Association. Diabetes Care. 2016.39(Suppl 1). Performed By: #### 2 4321-2 ####[facility] LABIA [id number] [place] [address] [place] Potassium [Moles/Vol] 4.7 mmol/L Normal 3.7-5.1 [facility] Comment on above: Order Comment: Brent mccoy Type: BLOOD SPECIMENOrdering Facility: [facility] Address: [address] [place] [address] Performed By: #### 2 4321-2 ####[facility] LABCLIA [id number] [place] [address] [place] Sodium [Moles/Vol] 141 mmol/L Normal 136-144 [facility] Comment on above: Order Comment: Speci men Type: BLOOD SPECIMENOrdering Facility: [facility] Address: [address] [place] [address] Performed By: #### 2 4321-2 ####[facility] LABCLIA [id number] [place] [address] [place] Urea nitrogen [Mass/Vol] 18 mg/dL Normal 9-24 [facility] Comment on above: Order Comment: Speci men Type: BLOOD SPECIMENOrdering Facility: [facility] Address: [address] [place] [address] Performed By: #### 2 4321-2 ####[facility] LABCLIA [id number] [place] [address] [place] CBC W Auto Differential pane l (Bld)on 07-11-2024 Basophils (Bld) [#/Vol] 0.05 10*3/uL Normal <0.11 [facility] Comment on above: Order Comment: Speci men Type: BLOOD SPECIMENOrdering Facility: [facility] Address: [address] [place] [address] Performed By: #### 5 7021-8 ####[facility] LABCLIA [id number] [place] [address] [place] Basophils/100 WBC (Bld) 0.7 % Normal [facility] Comment on above: Order Comment: Speci men Type: BLOOD SPECIMENOrdering Facility: [facility] Address: [address] [place] [address] Performed By: #### 5 7021-8 ####[facility] LABCLIA [id number] [place] [address] [place] Differential cell count method Nom (Bld) Auto Normal [facility] Comment on above: Order Comment: Speci men Type: BLOOD SPECIMENOrdering Facility: [facility] Address: [address] [place] [address] Performed By: #### 5 7021-8 ####[facility] LABCLIA [id number] [place] [address] [place] Eosinophils (Bld) [#/Vol] 0.17 10*3/uL Normal <0.46 [facility] Comment on above: Order Comment: Speci men Type: BLOOD SPECIMENOrdering Facility: [facility] Address: [address] [place] [address] Performed By: #### 5 7021-8 ####[facility] LABIA [id number] [place] [address] [place] Eosinophils/100 WBC (Bld) 2.5 % Normal [facility] Comment on above: Order Comment: Speci men Type: BLOOD SPECIMENOrdering Facility: [facility] Address: [address] [place] [address] Performed By: #### 5 7021-8 ####[facility] LABIA [id number] [place] [address] [place] Erythrocyte distribution width (RBC) [Ratio] 13.0 % Normal 11.5-15.0 [facility] Comment on above: Order Comment: Speci men Type: BLOOD SPECIMENOrdering Facility: [facility] Address: [address] [place] [address] Performed By: #### 5 7021-8 ####[facility] LABIA [id number] [place] [address] [place] Hematocrit (Bld) [Volume fraction] 43.5 % Normal 39.0-51.0 [facility] Comment on above: Order Comment: Speci men Type: BLOOD SPECIMENOrdering Facility: [facility] Address: [address] [place] [address] Performed By: #### 5 7021-8 ####[facility] LABCLIA [id number] [place] [address] [place] Hemoglobin (Bld) [Mass/Vol] 14.9 g/dL Normal 13.0-17.0 [facility] Comment on above: Order Comment: Speci men Type: BLOOD SPECIMENOrdering Facility: [facility] Address: [address] [place] [address] Performed By: #### 5 7021-8 ####[facility] LABCLIA [id number] [place] [address] [place] Immature granulocytes (Bld) [#/Vol] 10*3/uL Normal <0.10 [facility] Comment on above: Order Comment: Speci men Type: BLOOD SPECIMENOrdering Facility: [facility] Address: [address] [place] [address] Performed By: #### 5 7021-8 ####[facility] LABIA [id number] [place] [address] [place] Immature granulocytes/100 WBC (Bld) 0.3 % Normal [facility] Comment on above: Order Comment: Speci men Type: BLOOD SPECIMENOrdering Facility: [facility] Address: [address] [place] [address] Performed By: #### 5 7021-8 ####[facility] LABIA [id number] [place] [address] [place] Lymphocytes (Bld) [#/Vol] 1.53 10*3/uL Normal 1.00-4.00 [facility] Comment on above: Order Comment: Speci men Type: BLOOD SPECIMENOrdering Facility: [facility] Address: [address] [place] [address] Performed By: #### 5 7021-8 ####[facility] LABIA [id number] [place] [address] [place] Lymphocytes/100 WBC (Bld) 22.3 % Normal [facility] Comment on above: Order Comment: Speci men Type: BLOOD SPECIMENOrdering Facility: [facility] Address: [address] [place] [address] Performed By: #### 5 7021-8 ####[facility] LABIA [id number] [place] [address] [place] MCH (RBC) [Entitic mass] 32.3 pg Normal 26.0-34.0 [facility] Comment on above: Order Comment: Speci men Type: BLOOD SPECIMENOrdering Facility: [facility] Address: [address] [place] [address] Performed By: #### 5 7021-8 ####[facility] LABIA [id number] [place] [address] [place] MCHC (RBC) [Mass/Vol] 34.3 g/dL Normal 30.5-36.0 [facility] Comment on above: Order Comment: Speci men Type: BLOOD SPECIMENOrdering Facility: [facility] Address: [address] [place] [address] Performed By: #### 5 7021-8 ####[facility] LABIA [id number] [place] [address] [place] MCV (RBC) [Entitic vol] 94.2 fL Normal 80.0-100.0 [facility] Comment on above: Order Comment: Speci men Type: BLOOD SPECIMENOrdering Facility: [facility] Address: [address] [place] [address] Performed By: #### 5 7021-8 ####[facility] LABIA [id number] [place] [address] [place] Monocytes (Bld) [#/Vol] 0.53 10*3/uL Normal <0.87 [facility] Comment on above: Order Comment: Speci men Type: BLOOD SPECIMENOrdering Facility: [facility] Address: [address] [place] [address] Performed By: #### 5 7021-8 ####[facility] LABCLIA [id number] [place] [address] [place] Monocytes/100 WBC (Bld) 7.7 % Normal [facility] Comment on above: Order Comment: Speci men Type: BLOOD SPECIMENOrdering Facility: [facility] Address: [address] [place] [address] Performed By: #### 5 7021-8 ####[facility] LABCLIA [id number] [place] [address] [place] Neutrophils (Bld) [#/Vol] 4.57 10*3/uL Normal 1.45-7.50 [facility] Comment on above: Order Comment: Speci men Type: BLOOD SPECIMENOrdering Facility: [facility] Address: [address] [place] [address] Performed By: #### 5 7021-8 ####[facility] LABCLIA [id number] [place] [address] [place] Neutrophils/100 WBC (Bld) 66.5 % Normal [facility] Comment on above: Order Comment: Speci men Type: BLOOD SPECIMENOrdering Facility: [facility] Address: [address] [place] [address] Performed By: #### 5 7021-8 ####[facility] LABCLIA [id number] [place] [address] [place] Nucleated RBC (Bld) [#/Vol] 10*3/uL Normal <0.01 [facility] Comment on above: Order Comment: Speci men Type: BLOOD SPECIMENOrdering Facility: [facility] Address: [address] [place] [address] Performed By: #### 5 7021-8 ####[facility] LABCLIA [id number] [place] [address] [place] Nucleated RBC/100 WBC (Bld) [Ratio] 0.0 /100 WBC Normal [facility] Comment on above: Order Comment: Speci men Type: BLOOD SPECIMENOrdering Facility: [facility] Address: [address] [place] [address] Performed By: #### 5 7021-8 ####[facility] LABCLIA [id number] [place] [address] [place] Platelet mean volume (Bld) [Entitic vol] 9.5 fL Normal 9.0-12.7 [facility] Comment on above: Order Comment: Speci men Type: BLOOD SPECIMENOrdering Facility: [facility] Address: [address] [place] [address] Performed By: #### 5 7021-8 ####[facility] LABCLIA [id number] [place] [address] [place] Platelets (Bld) [#/Vol] 280 10*3/uL Normal 150-400 [facility] Comment on above: Order Comment: Speci men Type: BLOOD SPECIMENOrdering Facility: [facility] Address: [address] [place] [address] Performed By: #### 5 7021-8 ####[facility] LABCLIA [id number] [place] [address] [place] RBC (Bld) [#/Vol] 4.62 10*6/uL Normal 4.20-6.00 [facility] Comment on above: Order Comment: Speci men Type: BLOOD SPECIMENOrdering Facility: [facility] Address: [address] [place] [address] Performed By: #### 5 7021-8 ####[facility] LABCLIA [id number] [place] [address] [place] WBC (Bld) [#/Vol] 6.87 10*3/uL Normal 3.70-11.00 [facility] Comment on above: Order Comment: Speci men Type: BLOOD SPECIMENOrdering Facility: [facility] Address: [address] [address] Performed By: #### 5 7021-8 ####[facility] LABCLIA [id number] [id number] [id number] [place] Abdomen and Pelvis WO con traston 07-11-2024 IMPRESSION: 1. Left-sided hydronephrosis and proximal hydroureter. 5 x 7 mm calculus in the proximal left ureter. 2. Bilateral common iliac artery aneurysms Night Auditor[facility] Transcribe Date/Time: Jul 11 2024 9:28A Dictated by : NEETU JIMENEZ MD This examination was interpreted and the report reviewed and electronically signed by: NEETU JIMENEZ MD on Jul 11 2024 9:37AM [facility] DIVISION OF RADIOLOGY * * *Final Report* * * DATE OF EXAM: Jul 11 2024 9:14AM [facility] 0529 - CT FLANK WO IVCON / PROCEDURE REASON: Calculus of ureter * * * * Physician Interpretation * * * * EXAMINATION: CT ABDOMEN AND PELVIS WITHOUT IV CONTRAST (Renal stone protocol) CLINICAL HISTORY: Left hydronephrosis on ultrasound. History of kidney stones. TECHNIQUE: Non-contrast imaging of the abdomen and pelvis was performed through the urinary tract. Study performed without intravenous or oral contrast to evaluate for urinary tract calculus. MQ: CTAbdPelvF_1 Contrast: IV contrast: None Oral contrast: None CT Radiation dose: Integrated dose-length product (DLP) for this visit = 258 mGy*cm. CT Dose Reduction Employed: Automated exposure control(AEC) and iterative recon COMPARISON: Renal ultrasound 07/07/2024 RESULT: Limitations: Unenhanced imaging is limited for the evaluation of some renal and other intra-abdominal and pelvic pathology. Urinary Tract: Right kidney and ureter: Multiple calculi measuring up to 5 mm. No hydronephrosis. No finding to suggest cyst or mass in the unenhanced kidney. Left kidney and ureter: Multiple renal calculi measuring up to 4 mm. There is a 5 x 7 mm calculus in the proximal left ureter. Moderate hydronephrosis. No finding to suggest cyst or mass in the unenhanced kidney. Bladder: No calculus. Abdomen and Pelvis: Liver: 1.8 cm right hepatic cyst. Few subcentimeter low-density lesions too small to characterize. Normal morphology. Biliary: The gallbladder is unremarkable. No biliary dilatation. Spleen: No splenomegaly. Multiple calcified splenic granulomas. Pancreas: Unremarkable. Adrenals: Normal. GI Tract: No bowel dilation. Normal appendix. Lymph Nodes: No lymphadenopathy. Mesentery/peritoneum: No ascites. Vasculature: Arterial atherosclerotic disease. No abdominal aortic aneurysm. Dilatation of the right common iliac artery which measures 2.5 cm in diameter. Dilatation of the left common iliac artery which measures 2.9 cm in diameter. Pelvis: No mass or ascites. The bladder has a normal appearance. Bones and Soft Tissues: No acute abnormality. Degenerative disc disease at L5-S1. Lower thorax: Unremarkable. Localizer images: No additional findings. DIVISION OF RADIOLOGY Provider, [facility] - 07/11/2024 * * *Final Report* * * DATE OF EXAM: Jul 11 2024 9:14AM [facility] 0529 - CT FLANK WO IVCON / PROCEDURE REASON: Calculus of ureter * * * * Physician Interpretation * * * * EXAMINATION: CT ABDOMEN AND PELVIS WITHOUT IV CONTRAST (Renal stone protocol) CLINICAL HISTORY: Left hydronephrosis on ultrasound. History of kidney stones. TECHNIQUE: Non-contrast imaging of the abdomen and pelvis was performed through the urinary tract. Study performed without intravenous or oral contrast to evaluate for urinary tract calculus. MQ: CTAbdPelvF_1 Contrast: IV contrast: None Oral contrast: None CT Radiation dose: Integrated dose-length product (DLP) for this visit = 258 mGy*cm. CT Dose Reduction Employed: Automated exposure control(AEC) and iterative recon COMPARISON: Renal ultrasound 07/07/2024 RESULT: Limitations: Unenhanced imaging is limited for the evaluation of some renal and other intra-abdominal and pelvic pathology. Urinary Tract: Right kidney and ureter: Multiple calculi measuring up to 5 mm. No hydronephrosis. No finding to suggest cyst or mass in the unenhanced kidney. Left kidney and ureter: Multiple renal calculi measuring up to 4 mm. There is a 5 x 7 mm calculus in the proximal left ureter. Moderate hydronephrosis. No finding to suggest cyst or mass in the unenhanced kidney. Bladder: No calculus. Abdomen and Pelvis: Liver: 1.8 cm right hepatic cyst. Few subcentimeter low-density lesions too small to characterize. Normal morphology. Biliary: The gallbladder is unremarkable. No biliary dilatation. Spleen: No splenomegaly. Multiple calcified splenic granulomas. Pancreas: Unremarkable. Adrenals: Normal. GI Tract: No bowel dilation. Normal appendix. Lymph Nodes: No lymphadenopathy. Mesentery/peritoneum: No ascites. Vasculature: Arterial atherosclerotic disease. No abdominal aortic aneurysm. Dilatation of the right common iliac artery which measures 2.5 cm in diameter. Dilatation of the left common iliac artery which measures 2.9 cm in diameter. Pelvis: No mass or ascites. The bladder has a normal appearance. Bones and Soft Tissues: No acute abnormality. Degenerative disc disease at L5-S1. Lower thorax: Unremarkable. Localizer images: No additional findings. IMPRESSION IMPRESSION: 1. Left-sided hydronephrosis and proximal hydroureter. 5 x 7 mm calculus in the proximal left ureter. 2. Bilateral common iliac artery aneurysms Night Auditor: [facility] Transcribe Date/Time: Jul 11 2024 9:28A Dictated by : NEETU JIMENEZ MD This examination was interpreted and the report reviewed and electronically signed by: NEETU JIMENEZ MD on Jul 11 2024 9:37AM EST [facility] Radiology Study observation (narrative) [facility] CT Abdomen and Pelvis WO con trastOrdered By: [facility] Provider on 07-11-[address] [facility] [address] FLANK WO IVCONon 07-11-20 CT FLANK WO IVCON * * *Final Report* * * DATE OF EXAM: Jul 11 2024 9:14AM [facility] 0529 - CT FLANK WO IVCON / PROCEDURE REASON: Calculus of ureter * * * * Physician Interpretation * * * * EXAMINATION: CT ABDOMEN AND PELVIS WITHOUT IV CONTRAST (Renal stone protocol) CLINICAL HISTORY: Left hydronephrosis on ultrasound. History of kidney stones. TECHNIQUE: Non-contrast imaging of the abdomen and pelvis was performed through the urinary tract. Study performed without intravenous or oral contrast to evaluate for urinary tract calculus. MQ: CTAbdPelvF_1 Contrast: IV contrast: None Oral contrast: None CT Radiation dose: Integrated dose-length product (DLP) for this visit = 258 mGy*cm. CT Dose Reduction Employed: Automated exposure control(AEC) and iterative recon COMPARISON: Renal ultrasound 07/07/2024 RESULT: Limitations: Unenhanced imaging is limited for the evaluation of some renal and other intra-abdominal and pelvic pathology. Urinary Tract: Right kidney and ureter: Multiple calculi measuring up to 5 mm. No hydronephrosis. No finding to suggest cyst or mass in the unenhanced kidney. Left kidney and ureter: Multiple renal calculi measuring up to 4 mm. There is a 5 x 7 mm calculus in the proximal left ureter. Moderate hydronephrosis. No finding to suggest cyst or mass in the unenhanced kidney. Bladder: No calculus. Abdomen and Pelvis: Liver: 1.8 cm right hepatic cyst. Few subcentimeter low-density lesions too small to characterize. Normal morphology. Biliary: The gallbladder is unremarkable. No biliary dilatation. Spleen: No splenomegaly. Multiple calcified splenic granulomas. Pancreas: Unremarkable. Adrenals: Normal. GI Tract: No bowel dilation. Normal appendix. Lymph Nodes: No lymphadenopathy. Mesentery/peritoneum: No ascites. Vasculature: Arterial atherosclerotic disease. No abdominal aortic aneurysm. Dilatation of the right common iliac artery which measures 2.5 cm in diameter. Dilatation of the left common iliac artery which measures 2.9 cm in diameter. Pelvis: No mass or ascites. The bladder has a normal appearance. Bones and Soft Tissues: No acute abnormality. Degenerative disc disease at L5-S1. Lower thorax: Unremarkable. Localizer images: No additional findings. IMPRESSION: 1. Left-sided hydronephrosis and proximal hydroureter. 5 x 7 mm calculus in the proximal left ureter. 2. Bilateral common iliac artery aneurysms Night Auditor: [facility] Transcribe Date/Time: Jul 11 2024 9:28A Dictated by : NEETU JIMENEZ MD This examination was interpreted and the report reviewed and electronically signed by: NEETU JIMENEZ MD on Jul 11 2024 9:37AM EST [id number] Normal [facility] URINE, PRESURGICAL STERILIZA TION CULTUREon 07-11-2024 URINE, PRESURGICAL STERILIZATION CULTURE CULTURE, URINE: No growth (<100 CFU/ml) Normal [facility] Comment on above: Performed By: #### U PRESR ####[facility] LABCLIA [id number] [place] [address] [place] Urinalysis complete panel (U )on 07-11-2024 Bacteria LM.HPF (Urine sed) [#/Area] Negative Normal Negative [facility] Comment on above: Order Comment: Speci men Type: URINE SPECIMENOrdering Facility: [facility] Address: [address] [place] [address] Performed By: #### 2 4356-8 ####[facility] LABCLIA [id number] [place] [address] [place] Bilirubin Ql (U) Negative Normal Negative [facility] Comment on above: Order Comment: Speci men Type: URINE SPECIMENOrdering Facility: [facility] Address: [address] [place] [address] Performed By: #### 2 4356-8 ####[facility] LABCLIA [id number] [place] [address] [place] Clarity (Unsp spec) Clear Normal Clear [facility] Comment on above: Order Comment: Speci men Type: URINE SPECIMENOrdering Facility: [facility] Address: [address] [place] [address] Performed By: #### 2 4356-8 ####[facility] LABCLIA [id number] [place] [address] [place] Color (U) Yellow Normal Yellow [facility] Comment on above: Order Comment: Speci men Type: URINE SPECIMENOrdering Facility: [facility] Address: [address] [place] [address] Performed By: #### 2 4356-8 ####[facility] LABCLIA [id number] [place] [address] [place] Epithelial cells LM.HPF (Urine sed) [#/Area] None Seen Normal [facility] Comment on above: Order Comment: Speci men Type: URINE SPECIMENOrdering Facility: [facility] Address: [address] [place] [address] Performed By: #### 2 4356-8 ####[facility] LABCLIA [id number] [place] [address] [place] Glucose Test strip (U) [Mass/Vol] Negative Normal Negative [facility] Comment on above: Order Comment: Speci men Type: URINE SPECIMENOrdering Facility: [facility] Address: [address] [place] [address] Performed By: #### 2 4356-8 ####[facility] LABCLIA [id number] [place] [address] [place] Hemoglobin Ql (U) 1+ Abnormal Negative [facility] Comment on above: Order Comment: Speci men Type: URINE SPECIMENOrdering Facility: [facility] Address: [address] [place] [address] Performed By: #### 2 4356-8 ####[facility] LABCLIA [id number] [place] [address] [place] Hyaline casts (Urine sed) [#/Area] 1-3 /LPF Abnormal 0 /LPF [facility] Comment on above: Order Comment: Speci men Type: URINE SPECIMENOrdering Facility: [facility] Address: [address] [place] [address] Performed By: #### 2 4356-8 ####[facility] LABCLIA [id number] [place] [address] [place] Ketones Ql (U) Negative Normal Negative [facility] Comment on above: Order Comment: Speci men Type: URINE SPECIMENOrdering Facility: [facility] Address: [address] [place] [address] Performed By: #### 2 4356-8 ####[facility] LABCLIA [id number] [place] [address] [place] Leukocyte esterase Test strip Ql (U) 2+ Abnormal Negative [facility] Comment on above: Order Comment: Speci men Type: URINE SPECIMENOrdering Facility: [facility] Address: [address] [place] [address] Performed By: #### 2 4356-8 ####[facility] LABCLIA [id number] [place] [address] [place] Nitrite Ql (U) Negative Normal Negative [facility] Comment on above: Order Comment: Speci men Type: URINE SPECIMENOrdering Facility: [facility] Address: [address] [place] [address] Performed By: #### 2 4356-8 ####[facility] LABCLIA [id number] [place] [address] [place] pH (U) 6.0 [pH] Normal <8.5 [facility] Comment on above: Order Comment: Speci men Type: URINE SPECIMENOrdering Facility: [facility] Address: [address] [place] [address] Performed By: #### 2 4356-8 ####[facility] LABCLIA [id number] [place] [address] [place] Protein (U) [Mass/Vol] Negative Normal Negative [facility] Comment on above: Order Comment: Speci men Type: URINE SPECIMENOrdering Facility: [facility] Address: [address] [place] [address] Performed By: #### 2 4356-8 ####[facility] LABIA [id number] [place] [address] [place] RBC LM.HPF (Urine sed) [#/Area] 3-5 /HPF Abnormal 0-2 /HPF [facility] Comment on above: Order Comment: Speci men Type: URINE SPECIMENOrdering Facility: [facility] Address: [address] [place] [address] Performed By: #### 2 4356-8 ####[facility] LABCLIA [id number] [place] [address] [place] Specific gravity (U) [Rel density] 1.019 Normal 1.005-1.030 [facility] Comment on above: Order Comment: Speci men Type: URINE SPECIMENOrdering Facility: [facility] Address: [address] [place] [address] Performed By: #### 2 4356-8 ####[facility] LABIA [id number] [place] [address] [place] Urobilinogen Ql (U) 0.2 EU/dL Normal 0.2-1.0 EU/dL [facility] Comment on above: Order Comment: Speci men Type: URINE SPECIMENOrdering Facility: [facility] Address: [address] [place] [address] Performed By: #### 2 4356-8 ####[facility] LABIA [id number] [place] [address] [place] WBC LM.HPF (Urine sed) [#/Area] 11-20 /HPF Abnormal 0-5 /HPF [facility] Comment on above: Order Comment: Speci men Type: URINE SPECIMENOrdering Facility: [facility] Address: [address] [place] [address] Performed By: #### 2 4356-8 ####[facility] LABIA [id number] [place] [address] [place] Maximilian 07-10-2024 CNPN Telephone (URONIKKO) CHRISTIANO BUTCHER ([id number]) 1965 M Date Time Provider Department 07/10/24 ZAHRAA CLEMONS During your visit today, we recorded the following information about you: Zahraa Clemons RN 07/10/2024 3:50 PM Signed Called and spoke with patient to discuss need for surgery. Ultrasound showed persistent left ureteral stone. Ervin recommend scheduling for ureteroscopy procedure. He will need CT scan. Offered 07/[address] Rodriguez, as this is our first available right now. Will need virtual visit consult, will inquire with Dr. Rodriguez about date for patient to get added on to. Does not need to delay CT at this time, he will call to schedule this at [place] location. Will schedule surgery for 07/18. Will need pre-ops two weeks prior to surgery. Patient also requesting medication for pain, as he has been experiencing intermittent pain. Consulted with Ervin Nelson and he will send patient medication. Pt also requesting a work excuse letter be sent to him via my chart to excuse him from 07/10 to 07/21. Will have this made up. 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 - tamsulosin (FLOMAX) 0.4 mg Take 2 capsules by mouth once daily. - keTORolac (TORADOL) 10 mg tablet Take 10 mg by mouth every 6 hours as needed. - cephALEXin (KEFLEX) 500 mg capsule three times a day. - meloxicam (MOBIC) 15 mg tablet Take 1 tablet by mouth once daily. for pain. Take with food. Start this after you have completed toradol if still having pain. - polyethylene glycol 3350 17 gram/dose powder Drink a mix of 1 scoop in 8oz of water/beverage once daily as needed for constipation. - simvastatin (ZOCOR) 40 mg tablet Take 1 tablet by mouth daily at bedtime. - amLODIPine (NORVASC) 10 mg tablet Take 1 tablet by mouth once daily. DOSE CHANGE, take one daily - pantoprazole DR (PROTONIX) 40 mg tablet Take 1 tablet by mouth once daily. - fluticasone (FLONASE) 50 mcg/actuation nasal spray Use 2 Sprays in each nostril once daily. Rinse mouth after use. - CPAP/BIPAP/OTHER Auto titrating PAP device 5-15 ?cmH2O with humidification, small ResMed AirFit P10 nasal pillows mask ?and clinical follow up with data download after 1 month to ensure the pressure range is appropriate. Problem List As Of Date 07/10/2024 Noted Resolved OTHER HAMMER TOE [M20.40] 07/27/2005 ESOPHAGEAL REFLUX [K21.9] 05/14/2008 TOBACCO USE DISORDER [F17.200] 05/14/2008 Primary hypertension [I10] Hypercholesteremia [E78.00] 01/15/2015 Encounter for long-term (current) use of medica*12/26/2017 Encounter for screening for malignant neoplasm *12/26/2017 Gastroesophageal reflux disease [K21.9] 12/26/2017 Migraine without aura and without status migrai*10/29/2019 History of colonic polyps [Z86.0100] 04/28/2024 Kidney stone on left side [N20.0] 07/01/2024 Renal colic [N23] 07/01/2024 Letter Text Encounter Status:Closed by ZAHRAA CLEMONS [facility]10/24 [facility] Telephone (FAMWS) CHRISTIANO BUTCHER ([id number]) 1965 M Date Time Provider Department 07/09/24 LEE HENSON [facility] During your visit today, we recorded the following information about you: Chana PradoOLAF 07/09/2024 11:45 AM Signed Pt calling states is still having terrible pain from kidney stone. Has been to urologist and went back to er Sunday due to pain being so bad. Is now out of Flomax and antibiotic. Er gave him off through tomorrow. States not sure he can he johanna hardly stand. Wanting to know where going from here? States needs to inform work. Please advise. Carmen Alaniz LPN 07/09/2024 3:[address] Henson, Urologist should be managing pain medications, flomax and work excuses. Need to let LDT know if Urologist not responding to pt request for management and med refills. Carmen Alaniz LPN Patient was unsure how to reach urologist office, aware note will be forwarded to Ervin Nelson PA-C office. OLAF Holliday Liza D, MD 07/09/2024 4:36 PM Signed As noted below. Will forward to urology as noted below. Looks like was told to increase to 2 pills daily but no RX refill was sent in, so sent that while waiting to see if urology can address questions and concerns. The following approved medication requests have been transmitted electronically. Requested Prescriptions Signed Prescriptions Disp Refills tamsulosin (FLOMAX) 0.4 mg 60 capsule 1 Sig: Take 2 capsules by mouth once daily. Authorizing Provider: LEE HENSON MD Gillispie, Sue E, LPN 07/09/2024 4:47 PM Signed Patient aware. OLAF Holliday Shane, PA-C 07/10/2024 3:40 PM Signed Percocet x5 days for pain. CT scan (stat) for current stone location and degree of hydronephrosis; surgical planning with Dr. Rodriguez to be arranged (unless patient is able to pass stone beforehand). Ervin Nelson PA-C July 10, 2024 3:40 PM Allergies As of Date: 07/09/2024 Noted Allergy Reaction CHANTIX (VARENICLINE) 04/19/2018 5 - Intolerance Comments: Decreased mood LIPITOR (ATORVASTATIN) 08/02/2016 5 - Intolerance Comments: muscle aches, joint aches, fatigue, GI upset ROSUVASTATIN 03/07/2024 5 - Intolerance Comments: soreness and swelling -- patient states these improved after stopped this med Date Reviewed: 07/02/2024 Reviewed by: Jamilah Comer RN - Fully Assessed Reason for Visit: plan on kidney stone [Other] Primary Visit Diagnosis:Calculus of ureter [N20.1] Order(s):tamsulosin (FLOMAX) 0.4 mgTake 2 capsules by mouth once daily.Disp: 60 capsuleRfl: 1 CT FLANK WO IVCON [[id number]] Order #: [id number] FUTURE oxyCODONE-acetaminophen (PERCOCET) 5-325 mg tabletTake 1 tablet by mouth every 6 hours as needed for pain for up to 5 days.Disp: 20 tabletRfl: 0 Prescriptions as of 07/10/2024 - oxyCODONE-acetaminophen (PERCOCET) 5-325 mg tablet Take 1 tablet by mouth every 6 hours as needed for pain for up to 5 days. - tamsulosin (FLOMAX) 0.4 mg Take 2 capsules by mouth once daily. - keTORolac (TORADOL) 10 mg tablet Take 10 mg by mouth every 6 hours as needed. - cephALEXin (KEFLEX) 500 mg capsule three times a day. - meloxicam (MOBIC) 15 mg tablet Take 1 tablet by mouth once daily. for pain. Take with food. Start this after you have completed toradol if still having pain. - polyethylene glycol 3350 17 gram/dose powder Drink a mix of 1 scoop in 8oz of water/beverage once daily as needed for constipation. - simvastatin (ZOCOR) 40 mg tablet Take 1 tablet by mouth daily at bedtime. - amLODIPine (NORVASC) 10 mg tablet Take 1 tablet by mouth once daily. DOSE CHANGE, take one daily - pantoprazole DR (PROTONIX) 40 mg tablet Take 1 tablet by mouth once daily. - fluticasone (FLONASE) 50 mcg/actuation nasal spray Use 2 Sprays in each nostril once daily. Rinse mouth after use. - CPAP/BIPAP/OTHER Auto titrating PAP device 5-15 ?cmH2O with humidification, small ResMed AirFit P10 nasal pillows mask ?and clinical follow up with data download after 1 month to ensure the pressure range is appropriate. Problem List As Of Date 07/09/2024 Noted Resolved OTHER HAMMER TOE [M20.40] 07/27/2005 ESOPHAGEAL REFLUX [K21.9] 05/14/2008 TOBACCO USE DISORDER [F17.200] 05/14/2008 Primary hypertension [I10] Hypercholesteremia [E78.00] 01/15/2015 Encounter for long-term (current) use of medica*12/26/2017 Encounter for screening for malignant neoplasm *12/26/2017 Gastroesophageal reflux disease [K21.9] 12/26/2017 Migraine without aura and without status migrai*10/29/2019 History of colonic polyps [Z86.0100] 04/28/2024 Kidney stone on left side [N20.0] 07/01/2024 Renal colic [N23] 07/01/2024 Prescriptions ordered this encounter Disp Refills Start End TAMSULOSIN 0.4 MG CAPSULE 60 c* 1 07/09/2024 Route: ORAL Sig: Take 2 capsules by mouth once daily. O (more content not included)... Normal [facility] Basic Metabolic Profile (BMP )on 07-07-2024 BUN/CRE 20.4 RATIO High - [facility] Comment on above: Performed By: #### L 100.0100, L500.2500 #### [facility] [address] [place], [address] CA,Total 9.1 mg/dL Normal 8.5-10.1 [facility] Comment on above: Performed By: #### L 100.0100, L500.2500 #### [facility] [address] [place], [address] Chloride [Moles/Vol] 104 mmol/L Normal 98-107 [facility] Comment on above: Performed By: #### L 100.0100, L500.2500 #### [facility] [address] [place], [address] CO2 [Moles/Vol] 26.0 mmol/L Normal 21.0-32.0 [facility] Comment on above: Performed By: #### L 100.0100, L500.2500 #### [facility] [address] [place], [address] Creatinine [Mass/Vol] 1.13 mg/dL Normal 0.70-1.30 [facility] Comment on above: Result Comment: The validity of the calculated GFR GFRAA in patients over 70 years has not been determined. Clinical correlation is essential. Performed By: #### L 100.0100, L500.2500 #### [facility] [address] [place], [address] ECRCL 72.13 ml/min Normal [facility] Comment on above: Performed By: #### L 100.0100, L500.2500 #### [facility] [address] [place], [address] EST GFR - AA 86 mL/min Normal >60 [facility] Comment on above: Result Comment: Afri can Barb[place] GFR Calc Performed By: #### L 100.0100, L500.2500 #### [facility] [address] [place], [address] GAP 6 Normal 5-15 [facility] Comment on above: Performed By: #### L 100.0100, L500.2500 #### [facility] [address] [place], [address] GFR/1.73 sq M.predicted among non-blacks MDRD (S/P/Bld) [Vol rate/Area] 71 mL/min/{1.73_m2} Normal >60 [facility] Comment on above: Result Comment: Non- GFR Calc Performed By: #### L 100.0100, L500.2500 #### [facility] [address] [place], [address] Glucose [Mass/Vol] 108 mg/dL High 74-106 [facility] Comment on above: Result Comment: Fast ing Glucose result from 100 to 125 mg/dL suggests IMPAIRED HOMEOSTASIS per A.D.A. criteria. Performed By: #### L 100.0100, L500.2500 #### [facility] [address] [place], [address] Potassium [Moles/Vol] 4.0 mmol/L Normal 3.5-5.1 [facility] Comment on above: Performed By: #### L 100.0100, L500.2500 #### [facility] [address] [place], [address] Sodium [Moles/Vol] 136 mmol/L Normal 136-145 [facility] Comment on above: Performed By: #### L 100.0100, L500.2500 #### [facility] [address] [place], [address] Urea nitrogen [Mass/Vol] 23 mg/dL High 7-18 [facility] Comment on above: Performed By: #### L 100.0100, L500.2500 #### [facility] [address] [place], [address] CBC W/Diff, Automatedon 10-0 7-4 Absolute Lymph 1.61 X10 3/uL Normal 0.83-4.51 [facility] Comment on above: Performed By: #### L 100.0100, L500.2500 #### [facility] [address] [place], [address] Absolute Neut 3.5 X10 3/uL Normal 2.0-7.7 [facility] Comment on above: Performed By: #### L 100.0100, L500.2500 #### [facility] [address] [place], [address] Basophils/100 WBC (Bld) 1.0 % Normal 0-1 [facility] Comment on above: Performed By: #### L 100.0100, L500.2500 #### [facility] [address] [place], [address] Eosinophils/100 WBC (Bld) 3.2 % Normal 0-5 [facility] Comment on above: Performed By: #### L 100.0100, L500.2500 #### [facility] [address] [place], [address] Erythrocyte distribution width (RBC) [Ratio] 12.9 % Normal 11.6-14.6 [facility] Comment on above: Performed By: #### L 100.0100, L500.2500 #### [facility] [address] [place], [address] Hematocrit (Bld) [Volume fraction] 42.6 % Normal 40-54 [facility] Comment on above: Performed By: #### L 100.0100, L500.2500 #### [facility] [address] [place], [address] Hemoglobin (Bld) [Mass/Vol] 14.4 g/dL Normal 13.0-16.5 [facility] Comment on above: Performed By: #### L 100.0100, L500.2500 #### [facility] [address] [place], [address] IG% 0.300 Normal 0.0-0.9 [facility] Comment on above: Result Comment: IG% - Immature Granulocytes (promyelocytes, myelocytes and metamyelocytes) > 1% indicates that a LEFT SHIFT is Present. Performed By: #### L 100.0100, L500.2500 #### [facility] [address] [place], [address] Lymphocytes/100 WBC (Bld) 27.1 % Normal 19-41 [facility] Comment on above: Performed By: #### L 100.0100, L500.2500 #### [facility] [address] [place], [address] MCH (RBC) [Entitic mass] 32.0 pg Normal 27.0-32.0 [facility] Comment on above: Performed By: #### L 100.0100, L500.2500 #### [facility] [address] [place], [address] MCHC (RBC) [Mass/Vol] 33.8 g/dL Normal 32-36 [facility] Comment on above: Performed By: #### L 100.0100, L500.2500 #### [facility] [address] [place], [address] MCV (RBC) [Entitic vol] 94.7 fL High 80-94 [facility] Comment on above: Performed By: #### L 100.0100, L500.2500 #### [facility] [address] [place], [address] Monocytes/100 WBC (Bld) 9.9 % Normal 0-10 [facility] Comment on above: Performed By: #### L 100.0100, L500.2500 #### [facility] [address] [place], [address] Neutrophils/100 WBC (Bld) 58.5 % Normal 47-70 [facility] Comment on above: Performed By: #### L 100.0100, L500.2500 #### [facility] [address] [place], [address] Nucleated RBC (Bld) [#/Vol] 0 10*3/uL Normal 0-5 [facility] Comment on above: Performed By: #### L 100.0100, L500.2500 #### [facility] [address] [place], [address] Platelet mean volume (Bld) [Entitic vol] 9.2 fL Normal 6.2-12.0 [facility] Comment on above: Performed By: #### L 100.0100, L500.2500 #### [facility] [address] [place], [address] Platelets (Bld) [#/Vol] 228 10*3/uL Normal 150-450 [facility] Comment on above: Performed By: #### L 100.0100, L500.2500 #### [facility] [address] [place], [address] RBC (Bld) [#/Vol] 4.50 10*6/uL Low 4.6-6.2 [facility] Comment on above: Performed By: #### L 100.0100, L500.2500 #### [facility] [address] [place], [address] RDW SD 45.3 fl High 35.1-43.9 [facility] Comment on above: Performed By: #### L 100.0100, L500.2500 #### [facility] [address] [place], [address] WBC (Bld) [#/Vol] 5.9 10*3/uL Normal 4.4-11.0 [facility] Comment on above: Performed By: #### L 100.0100, L500.2500 #### [facility] [address] [place], [address] Emergency Department Summary on 07-07-2024 Emergency Department Summary [facility] Medical Records Department [address] [place] [address] Emergency Department Summary 07/07/24 MR#: [id number] Acct: [id number] Name: CHRISTIANO BUTCHER Rep #: [id number] : 1965 59 From: Venkat Coronel MD PCP: Dr. Lee Henson MD Status:REG ER Location: ED HPI HPI - GI History of Present Illness Chief Complaint: Flank Pain Informant: patient Narrative Narrative: 59-year-old male with a history of kidney stones started having left flank pain just over a week ago and was seen here after trying ibuprofen that did not help, diagnosed with a left UPJ 6 mm ureteral stone. He has continued to have the colicky pain and nausea and no other symptoms. He has been controlling the symptoms with Percocet that he was prescribed. He followed up with his PCP and his urologist Essence at [facility], states he is scheduled for outpatient x-ray and ultrasound later today, but presents here to the emergency department because his urologist told him to come for reevaluation if the stone had not passed in a week which it has not. Pain is still left flank does not feel like it has moved to any new position. He had to have stenting couple years ago for a different kidney stone. [facility] Medical History GERD (gastroesophageal reflux disease) Hypertension Kidney stone Home Medications ???Medication ???Instructions ???Recorded ???Last Taken ???Type simvastatin 20 mg tablet 40 mg PO DAILY 04/06/16 Unknown History hydrochlorothiazide 25 mg tablet 25 mg PO DAILY 01/19/22 Unknown History pantoprazole 40 mg tablet,delayed 40 mg PO DAILY 01/19/22 Unknown History release oxycodone-acetaminophen 5 mg-325 1 tab PO Q6H PRN pain 3 days #12 06/29/24 Unknown Rx mg tablet (Percocet) tabs tamsulosin 0.4 mg capsule (Flomax) 0.4 mg PO DAILY 14 days #14 caps 06/29/24 Unknown Rx Allergy/AdvReac Type Severity Reaction Status Date / Time rosuvastatin (From Crestor) AdvReac Mild SWELLING Verified 07/07/24 04:27 Social History Smoking Status: Current every day smoker tobacco type: cigarettes ROS ROS ED Constitutional Constitutional ED: Denies chills or fever(s) Eyes Eyes: Denies change in vision or diplopia ENT ENT ED: Denies rhinorrhea or sore throat Cardiovascular Cardiovascular: Denies chest pain or palpitations Respiratory/Chest Respiratory/Chest: Denies cough or dyspnea Gastrointestinal Gastrointestinal: Reports nausea; Denies abdominal pain, diarrhea or vomiting Genitourinary Genitourinary ED: Reports flank pain; Denies dysuria or hematuria Musculoskeletal Musculoskeletal: Denies back pain or neck pain Integumentary Denies abscess or rash Neurologic Neurologic: Denies headache(s), paresthesias or weakness Psychiatric Psychiatric: Denies anxiety or suicidal thoughts EXAM Physical Exam Const Vital Signs: 07/07/24 04:27 Temperature 98.0 F Temperature Source Oral Pulse Rate 78 Respiratory Rate 16 Blood Pressure 165/97 H Blood Pressure Mean 119 Pulse Ox 99 Oxygen Delivery Method Room Air Positive well nourished and well developed General Appearance ED: well developed and NAD HEENT Reports moist mucous membranes normocephalic and atraumatic Eyes PERRL and EOMs intact bilaterally Neck full ROM and supple Resp normal respiratory effort and clear to auscultation bilaterally Cardio regular rate, regular rhythm and no murmurs GI non-tender and non-distended Auscultation: normoactive bowel sounds Palpation: soft Back/Spine General Back: CVA tenderness left and other FROM Extremity normal to inspection General Extremety ED: Negative for edema, pulses abnormal or tenderness General Extremity: Negative for edema or pulses abnormal Neuro oriented x3, CN's II-XII intact bilaterally and no sensory deficits noted Sensorium / Orientation: awake and alert Motor Exam: strength 5/5 throughout Skin no rashes or lesions noted and no wounds MDM MDM MDM Narrative Medical decision making narrative: I did review his prior CT showing a 6 mm left ureteral UPJ stone. Given that this patient is controlling his symptoms, has been taking cephalexin for the past week after having a urinalysis here that showed no sign of infection, and appears well and not septic and has outpatient imaging ordered, I asked him how I could help him this morning at 0430-5 AM. He said part of the issue was that he needs to go to work at 7 AM, and he is still dependent on taking Percocet to keep his pain under control because the stone has not passed yet which he states his urologist expected it to. I think it would be reasonable to obtain basic labs, urinalysis to rule out infection, and to control (more content not included)... Normal [facility] US KIDNEY/BLADDERon 07-07-20 US KIDNEY/BLADDER * * *Final Report* * * DATE OF EXAM: Jul 07 2024 3:00PM [facility] 1055 - US KIDNEY/BLADDER / PROCEDURE REASON: Renal calculus * * * * Physician Interpretation * * * * EXAMINATION: RENAL ULTRASOUND CLINICAL HISTORY: Renal calculus TECHNIQUE: Sonography of the kidneys and urinary bladder was performed. Images were obtained and stored in a permanent archive and interpreted remotely. MQ: UR_1 COMPARISON: None RESULT: Right Kidney: -Renal length: 11.4 cm -Parenchyma: Normal parenchymal echogenicity. Normal parenchymal thickness. -Collecting system: No hydronephrosis. -Calculus: 4 mm echogenic shadowing nonobstructing midpole calculus. -Lesion: None. Left Kidney: -Renal length: 13 cm -Parenchyma: Normal parenchymal echogenicity. Normal parenchymal thickness. -Collecting system: Mild hydronephrosis -Calculus: 5 mm echogenic nonobstructing lower pole calculus. -Lesion: None. Bladder: Incompletely distended with a volume of 9 mL. IMPRESSION: 1. Mild left hydronephrosis. Sonographically occult left ureteral calculus possible. 2. Subcentimeter nonobstructing bilateral renal calculi.. Night Auditor: [facility] Transcribe Date/Time: Jul 07 2024 3:13P Dictated by : MADISON MORTON MD This examination was interpreted and the report reviewed and electronically signed by: MADISON MORTON MD on Jul 07 2024 3:18PM EST [id number] Normal [facility] US Kidney - bilateral and Ur inary bladderon 07-07-2024 IMPRESSION: 1. Mild left hydronephrosis. Sonographically occult left ureteral calculus possible. 2. Subcentimeter nonobstructing bilateral renal calculi.. Night Auditor: [facility] Transcribe Date/Time: Jul 07 2024 3:13P Dictated by : MADISON MORTON MD This examination was interpreted and the report reviewed and electronically signed by: MADISON MORTON MD on Jul 07 2024 3:18PM EST DIVISION OF RADIOLOGY * * *Final Report* * * DATE OF EXAM: Jul 07 2024 3:00PM [facility] 1055 - US KIDNEY/BLADDER / PROCEDURE REASON: Renal calculus * * * * Physician Interpretation * * * * EXAMINATION: RENAL ULTRASOUND CLINICAL HISTORY: Renal calculus TECHNIQUE: Sonography of the kidneys and urinary bladder was performed. Images were obtained and stored in a permanent archive and interpreted remotely. MQ: UR_1 COMPARISON: None RESULT: Right Kidney: -Renal length: 11.4 cm -Parenchyma: Normal parenchymal echogenicity. Normal parenchymal thickness. -Collecting system: No hydronephrosis. -Calculus: 4 mm echogenic shadowing nonobstructing midpole calculus. -Lesion: None. Left Kidney: -Renal length: 13 cm -Parenchyma: Normal parenchymal echogenicity. Normal parenchymal thickness. -Collecting system: Mild hydronephrosis -Calculus: 5 mm echogenic nonobstructing lower pole calculus. -Lesion: None. Bladder: Incompletely distended with a volume of 9 mL. DIVISION OF RADIOLOGY Provider, [facility] - 07/07/2024 * * *Final Report* * * DATE OF EXAM: Jul 07 2024 3:00PM [facility] 1055 - US KIDNEY/BLADDER / PROCEDURE REASON: Renal calculus * * * * Physician Interpretation * * * * EXAMINATION: RENAL ULTRASOUND CLINICAL HISTORY: Renal calculus TECHNIQUE: Sonography of the kidneys and urinary bladder was performed. Images were obtained and stored in a permanent archive and interpreted remotely. MQ: UR_1 COMPARISON: None RESULT: Right Kidney: -Renal length: 11.4 cm -Parenchyma: Normal parenchymal echogenicity. Normal parenchymal thickness. -Collecting system: No hydronephrosis. -Calculus: 4 mm echogenic shadowing nonobstructing midpole calculus. -Lesion: None. Left Kidney: -Renal length: 13 cm -Parenchyma: Normal parenchymal echogenicity. Normal parenchymal thickness. -Collecting system: Mild hydronephrosis -Calculus: 5 mm echogenic nonobstructing lower pole calculus. -Lesion: None. Bladder: Incompletely distended with a volume of 9 mL. IMPRESSION IMPRESSION: 1. Mild left hydronephrosis. Sonographically occult left ureteral calculus possible. 2. Subcentimeter nonobstructing bilateral renal calculi.. Night Auditor: [facility] Transcribe Date/Time: Jul 07 2024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 Differential diagnosis is for kidney stone versus UTI versus pyel (more content not included)... Normal [facility] Urinalysis, Completeon 06-29 RBC 0-5 SEEN Normal 0-5 [facility] Comment on above: Order Comment: CLEAN CATCH Performed By: #### L 400.0001 #### [facility] [address] [place], [place], [id number] BACTERIA 0 SEEN Normal None Seen [facility] Comment on above: Order Comment: CLEAN CATCH Performed By: #### L 400.0001 #### [facility] [address] [place], [address] EPI,SQUAMOUS 0 SEEN Normal 0-5 [facility] Comment on above: Order Comment: CLEAN CATCH Performed By: #### L 400.0001 #### [facility] [address] [place], [address] Mucus Ql (Urine sed) 0 SEEN Normal [facility] Comment on above: Order Comment: CLEAN CATCH Performed By: #### L 400.0001 #### [facility] [address] [place], [address] WBC 0 SEEN Normal 0-5 [facility] Comment on above: Order Comment: CLEAN CATCH Performed By: #### L 400.0001 #### [facility] [address] [place], [address] Colonoscopy Study observatio non 04-28-2024 [facility] Gastrointestinal Endoscopy Patient Name: Christiano Butcher Procedure Date: 04/28/2024 8:44 AM Date of : 1965 Admit Type: Outpatient Age: 59 Gender: Male Note Status: Finalized Procedure: Colonoscopy Indications: High risk colon cancer surveillance: Personal history of colonic polyps Providers: Eduardo Maldonado MD Patient Profile: This is a 59 year old male. Refer to note in patient chart for documentation of history and physical. Last Colonoscopy: December 2017. Referring Physician: Chana Zavala MD (Referring MD), Agnieszka ([facility]) Donny (Referring MD) Medicines: Fentanyl 100 micrograms IV, Midazolam 5 mg IV, Diphenhydramine 50 mg IV Complications: No immediate complications. Estimated blood loss: None. Requesting Provider: Procedure: Pre-Anesthesia Assessment: - Prior to the procedure, a History and Physical was performed, and patient medications and allergies were reviewed. The patient's tolerance of previous anesthesia was also reviewed. The risks and benefits of the procedure and the sedation options and risks were discussed with the patient. All questions were answered, and informed consent was obtained. Prior Anticoagulants: The patient has taken no anticoagulant or antiplatelet agents. ASA Grade Assessment: II - A patient with mild systemic disease. After reviewing the risks and benefits, the patient was deemed in satisfactory condition to undergo the procedure. After I obtained informed consent, the scope was passed under direct vision. Throughout the procedure, the patient's blood pressure, pulse, and oxygen saturations were monitored continuously. The Colonoscope was introduced through the anus and advanced to the cecum, identified by appendiceal orifice and ileocecal valve. The colonoscopy was performed without difficulty. The patient tolerated the procedure well. The quality of the bowel preparation was adequate to identify polyps greater than 5 mm in size. The ileocecal valve, appendiceal orifice, and rectum were photographed. Moderate Sedation: The administration of moderate sedation was initiated at 08:49 AM. Moderate (conscious) sedation was personally administered by the endoscopist. The following parameters were monitored: oxygen saturation, heart rate, blood pressure, respiratory rate, EKG, adequacy of pulmonary ventilation, and response to care. Total physician intraservice time was 14 minutes. Findings: The perianal and digital rectal examinations were normal. Non-bleeding internal hemorrhoids were found during retroflexion. The hemorrhoids were mild and small. The exam was otherwise without abnormality. Impression: - Non-bleeding internal hemorrhoids. - The examination was otherwise normal. - No specimens collected. Recommendation: - Patient has a contact number available for emergencies. The signs and symptoms of potential delayed complications were discussed with the patient. Return to normal activities tomorrow. Written discharge instructions were provided to the patient. - Resume previous diet. - Continue present medications. - Repeat colonoscopy in 10 years for screening purposes. - Return to primary care physician PRN. Procedure Code(s): --- Professional --- 27145, Colonoscopy, flexible; diagnostic, including collection of specimen(s) by brushing or washing, when performed (separate procedure) G0500, Moderate sedation services provided by the same physician or other qualified health health and social care teacher performing a gastrointestinal endoscopic service that sedation supports, requiring the presence of an independent trained observer t (more content not included)... [employer] Radiology Study observation (narrative) [facility] MRI HAND WO IVCON LEFTon [facility] HOME SLEEP APNEA TEST (HSAT) on 01-12-2023 [facility] XR HAND GENERAL 3V PA/LAT/OB L LEFTon 12-13-2022 [facility] XR Hand - left PA and Latera l and Obliqueon 12-13-2022 IMPRESSION: 1. No radiographic evidence of acute osseous injury. 2. Amorphous calcifications adjacent to the fifth metacarpal phalangeal joint. Night Auditor: GILBERT Transcribe Date/Time: Dec 13 2022 10:28A Dictated by : MADISON MORTON MD This examination was interpreted and the report reviewed and electronically signed by: MADISON MORTON MD on Dec 13 2022 10:29AM [facility] DIVISION OF RADIOLOGY * * *Final Report* * * DATE OF EXAM: Dec 13 2022 10:22AM WOX 5345 - XR HAND 3V PA/LAT/OBL LT / PROCEDURE REASON: Hand pain, left * * * * Physician Interpretation * * * * TITLE: XR HAND 3V PA/LAT/OBL LT CLINICAL INDICATION: Pain TECHNIQUE: 3 view radiographic study of the left hand COMPARISON: None FINDINGS: No acute fracture or dislocation identified. Amorphous calcification located adjacent to fifth metacarpal phalangeal joint. DIVISION OF RADIOLOGY Provider, [facility] - 12/13/2022 * * *Final Report* * * DATE OF EXAM: Dec 13 2022 10:22AM WOX 5345 - XR HAND 3V PA/LAT/OBL LT / PROCEDURE REASON: Hand pain, left * * * * Physician Interpretation * * * * TITLE: XR HAND 3V PA/LAT/OBL LT CLINICAL INDICATION: Pain TECHNIQUE: 3 view radiographic study of the left hand COMPARISON: None FINDINGS: No acute fracture or dislocation identified. Amorphous calcification located adjacent to fifth metacarpal phalangeal joint. IMPRESSION IMPRESSION: 1. No radiographic evidence of acute osseous injury. 2. Amorphous calcifications adjacent to the fifth metacarpal phalangeal joint. [facility] Transcribe Date/Time: Dec 13 2022 10:28A Dictated by : MADISON MORTON MD This examination was interpreted and the report reviewed and electronically signed by: MADISON MORTON MD on Dec 13 2022 10:29AM EST [facility] Radiology Study observation (narrative) [facility] XR Hand - left PA and Latera l and ObliqueOrdered By: [facility] Provider on 12-13-2022 [facility] Absolute lymphocyte counton 01-20-2022 Lymphocytes Auto (Unsp spec) [#/Vol] 1.91 10*3/uL 0.83-4.51 [facility] Work Phone: Basophil percentageon 2021 Basophils/100 WBC (Bld) 0.4 % 0-1 [facility] Work Phone: Chloride [Moles/Vol] 108 mmol/L 98-107 [facility] Work Phone: Eosinophils/100 WBC (Bld) 3.3 % 0-5 [facility] Work Phone: Glucose [Mass/Vol] 106 mg/dL 74-106 [facility] Work Phone: Comment on above: Fasting Glucose resu lt from 100 to 125 mg/dL suggests IMPAIRED HOMEOSTASIS per A.D.A. criteria. Neutrophils (Bld) [#/Vol] 4.3 10*3/uL 2.0-7.7 [facility] Work Phone: Neutrophils/100 WBC (Bld) 61.2 % 47-70 [facility] Work Phone: Potassium [Moles/Vol] 3.5 mmol/L 3.5-5.1 [facility] Work Phone: Sodium [Moles/Vol] 139 mmol/L 136-145 [facility] Work Phone: WBC (Bld) [#/Vol] 7.1 10*3/uL 4.4-11.0 [facility] Work Phone: Blood erythrocytes count (nu mber/volume)on 01-20-2022 RBC (Bld) [#/Vol] 4.23 10*6/uL 4.6-6.2 [facility] Work Phone: Blood hemoglobin measurement (mass/volume)on 01-20-2022 Hemoglobin (Bld) [Mass/Vol] 13.6 g/dL 13.0-16.5 [facility] Work Phone: Blood lymphocytes/100 leukoc yteson 01-20-2022 Lymphocytes/100 WBC (Bld) 27.0 % 19-41 [facility] Work Phone: Blood monocytes/100 leukocyt eson 01-20-2022 Monocytes/100 WBC (Bld) 7.8 % 0-10 [facility] Work Phone: Blood platelet mean volumeon 01-20-2022 Platelet mean volume (Bld) [Entitic vol] 9.8 fL 6.2-12.0 [facility] Work Phone: [phone] Determination of erythrocyte mean corpuscular volume (MCV)on 01-20-2022 MCV (RBC) [Entitic vol] 93.1 fL 80-94 [facility] Work Phone: [phone] Hematocrit Auto (Bld) [Volum e fraction]on 01-20-2022 Hematocrit (Bld) [Volume fraction] 39.4 % 40-54 [facility] Work Phone: [phone] Laboratory - Chemistry and C hemistry - challengeon 01-20-2022 CO2 [Moles/Vol] 26.0 mmol/L 21.0-32.0 [facility] Work Phone: [phone] Urea nitrogen/Creatinine [Mass ratio] 23.7 mg/mg 10-20 [facility] Work Phone: [phone] Laboratory - Hematology and Cell countson 01-20-2022 Erythrocyte distribution width (RBC) [Entitic vol] 48.0 fL 35.1-43.9 [facility] Work Phone: [phone] Erythrocyte distribution width (RBC) [Ratio] 14.2 % 11.6-14.6 [facility] Work Phone: [phone] Immature granulocytes/100 WBC (Bld) 0.300 % 0.0-0.9 [facility] Work Phone: [phone] Comment on above: IG% - Immature Granu locytes (promyelocytes, myelocytes and metamyelocytes) > 1% indicates that a LEFT SHIFT is Present. MCH (RBC) [Entitic mass] 32.2 pg 27.0-32.0 [facility] Work Phone: [phone] Nucleated RBC/100 WBC (Bld) [Ratio] 0 % 0-5 [facility] Work Phone: [phone] MCHC Auto (RBC) [Mass/Vol]on 01-20-2022 MCHC (RBC) [Mass/Vol] 34.5 g/dL 32-36 [facility] Work Phone: [phone] Panel Informationon 01-20 Estimated Creatinine Clearance Calc 109.82 ml/min [facility] Work Phone: [phone] Estimated GFR (MDRD) Amer 137 mL/min >60 [facility] Work Phone: [phone] Comment on above: GFR Calc Estimated GFR (MDRD) Non-Af Amer 113 mL/min >60 [facility] Work Phone: Comment on above: Non- GFR Calc Platelets bldon 01-20-2022 Platelets (Bld) [#/Vol] 157 10*3/uL 150-450 [facility] Work Phone: [phone] Serum or plasma calcium dayna urement (mass/volume)on 01-20-2022 Calcium [Mass/Vol] 8.0 mg/dL 8.5-10.1 [facility] Work Phone: Serum or plasma creatinine m easurement (mass/volume)on 01-20-2022 Creatinine [Mass/Vol] 0.76 mg/dL 0.70-1.30 [facility] Work Phone: [phone] Comment on above: The validity of the calculated GFR & GFRAA in patients over 70 years has not been determined. Clinical correlation is essential. Serum or plasma urea nitroge n measurement (mass/volume)on 01-20-2022 Urea nitrogen [Mass/Vol] 18 mg/dL 7-18 [facility] Work Phone: Thin prep Papanicolaou smear with manual screeningon 01-20-2022 Thin prep Papanicolaou smear with manual screening 5 5-15 [facility] Work Phone: Basophil percentageon 2021 Basophil percentage 0 SEEN /hpf [facility] Work Phone: [phone] Lactate [Moles/Vol] 1.4 mmol/L 0.4-2.0 [facility] Work Phone: [phone] Bilirubin Test strip Ql (U)o n 2022 Bilirubin Ql (U) Negative Negative [facility] Work Phone: [phone] Ketones Test strip Ql (U)on 2022 Ketones Ql (U) 5 mg/dl Negative [facility] Work Phone: Mucus LM Ql (Urine sed)on Mucus Ql (Urine sed) 0 SEEN /hpf [facility] Work Phone: Nitrite Test strip Ql (U)on 2022 Nitrite Ql (U) Negative Negative [facility] Work Phone: Protein Test strip Ql (U)on 2022 Protein Ql (U) 30 mg/dl Negative [facility] Work Phone: Squamous epithelial cells de tection in urine sediment by light microscopyon 2022 Epithelial cells.squamous LM Ql (Urine sed) 0 SEEN /hpf [facility] Work Phone: Urine blood detectionon 12-31 RBC Ql (U) 150 /ul Negative [facility] Work Phone: RBC Ql (U) 5-10 SEEN /hpf [facility] Work Phone: Urine clarityon 2022 Clarity (U) Clear Clear [facility] Work Phone: Urine color determinationon 2022 Color (U) Yellow Yellow [facility] Work Phone: Urine glucose detectionon Glucose Ql (U) Normal mg/dl Normal [facility] Work Phone: Urine leukocyte esterase det ection by dipstickon 2022 Leukocyte esterase Test strip Ql (U) Negative Negative [facility] Work Phone: Urine pHon 2022 pH (U) 6.0 [pH] [facility] Work Phone: Urine sediment bacteria coun t by microscopy (number/high power field)on 2022 Bacteria LM.HPF (Urine sed) [#/Area] 0 /[HPF] None Seen [facility] Work Phone: Urine specific gravity measu rementon 2022 Specific gravity (U) [Rel density] 1.025 [facility] Work Phone: Urobilinogen Auto test strip Ql (U)on 2022 Urobilinogen Ql (U) 1 mg/dl Normal [facility] Work Phone: Vital Signs Date Time Vital Sign Value Performing Clinician Anny guzman 05-27-2025 15:50-0400 Body mass index (BMI) [Ratio] 28.55 kg/m2 Marianne Adrianna PRODUCTION SOUND MIXER.REFRACTORY SPECIALIST Work Phone: [facility] 05-27-2025 15:50-0400 Body temperature 99.39 [degF] Marianne Wilhelm PRODUCTION SOUND MIXER.REFRACTORY SPECIALIST Work Phone: [facility] 05-27-2025 15:50-0400 Body weight 83.3 kg Marianne Wilhelm PRODUCTION SOUND MIXER.REFRACTORY SPECIALIST Work Phone: [facility] 05-27-2025 15:50-0400 Diastolic blood pressure 80 mm[Hg] Marianne LuevanoAdrianna PRODUCTION SOUND MIXER.REFRACTORY SPECIALIST Work Phone: [facility] 05-27-2025 15:50-0400 Heart rate 99 /min Marianne Wilhelm PRODUCTION SOUND MIXER.REFRACTORY SPECIALIST Work Phone: [facility] 05-27-2025 15:50-0400 Respiratory rate 12 /min Marianne Wilhelm PRODUCTION SOUND MIXER.REFRACTORY SPECIALIST Work Phone: [facility] 05-27-2025 15:50-0400 SaO2% (BldA) [Mass fraction] 99 % Marianne Wilhelm PRODUCTION SOUND MIXER.REFRACTORY SPECIALIST Work Phone: [facility] 05-27-2025 15:50-0400 Systolic blood pressure 144 mm[Hg] Marianne MurrayAdrianna PRODUCTION SOUND MIXER.REFRACTORY SPECIALIST Work Phone: [facility] 05-23-2025 10:11-0400 Body mass index (BMI) [Ratio] 27.59 kg/m2 Ruby LUCAS Work Phone: [facility] 05-23-2025 10:11-0400 Body temperature 98.29 [degF] Ruby LUCAS Work Phone: [facility] 05-23-2025 10:11-0400 Body weight 80.5 kg Krislyn Aberegg PA Work Phone: [facility] 05-23-2025 10:11-0400 Diastolic blood pressure 76 mm[Hg] Krislyn Aberegg PA Work Phone: [facility] 05-23-2025 10:11-0400 Heart rate 82 /min Krislyn Aberegg PA Work Phone: [facility] 05-23-2025 10:11-0400 Respiratory rate 16 /min Krislyn Aberegg PA Work Phone: [facility] 05-23-2025 10:11-0400 SaO2% (BldA) [Mass fraction] 97 % Krislyn Aberegg PA Work Phone: [facility] 05-23-2025 10:11-0400 Systolic blood pressure 122 mm[Hg] Krislyn Aberegg PA Work Phone: [facility] 05-12-2025 10:10-0400 Diastolic blood pressure 96 mm[Hg] Magalis Galindo DO Work Phone: [facility] 05-12-2025 10:10-0400 Systolic blood pressure 148 mm[Hg] Magalis Galindo DO Work Phone: [facility] 02-25-2025 08:07-0400 Diastolic blood pressure 82 mm[Hg] Yoel Viridiana PRODUCTION SOUND MIXER.REFRACTORY SPECIALIST Work Phone: [facility] 02-25-2025 08:07-0400 Systolic blood pressure 130 mm[Hg] Yoel Viridiana PRODUCTION SOUND MIXER.REFRACTORY SPECIALIST Work Phone: [facility] 02-25-2025 08:05-0400 Body height 170.8 cm Yoel Viridiana PRODUCTION SOUND MIXER.REFRACTORY SPECIALIST Work Phone: [facility] 02-25-2025 08:05-0400 Body mass index (BMI) [Ratio] 27.97 kg/m2 Yoel Viridiana PRODUCTION SOUND MIXER.REFRACTORY SPECIALIST Work Phone: [facility] 02-25-2025 08:05-0400 Body weight 81.6 kg Yoel Corbettr PRODUCTION SOUND MIXER.REFRACTORY SPECIALIST Work Phone: [facility] 02-25-2025 08:05-0400 Heart rate 88 /min Yoel Corbettr PRODUCTION SOUND MIXER.REFRACTORY SPECIALIST Work Phone: [facility] 02-25-2025 08:05-0400 SaO2% (BldA) [Mass fraction] 98 % Yoel Corbettr PRODUCTION SOUND MIXER.REFRACTORY SPECIALIST Work Phone: [facility] 10-28-2024 07:29-0500 Body mass index (BMI) [Ratio] 27.02 kg/m2 Bony Clutter PA-C Work Phone: [facility] 10-28-2024 07:29-0500 Body temperature 97.59 [degF] Bony Clutter PA-C Work Phone: [facility] 10-28-2024 07:29-0500 Body weight 83 kg Bony Clutter PA-C Work Phone: [facility] 10-28-2024 07:29-0500 Diastolic blood pressure 87 mm[Hg] Bony Clutter PA-C Work Phone: [facility] 10-28-2024 07:29-0500 Heart rate 79 /min Bony Clutter PA-C Work Phone: [facility] 10-28-2024 07:29-0500 Respiratory rate 18 /min Bony Clutter PA-C Work Phone: [facility] 10-28-2024 07:29-0500 SaO2% (BldA) [Mass fraction] 98 % Bony Clutter PA-C Work Phone: [facility] 10-28-2024 07:29-0500 Systolic blood pressure 146 mm[Hg] Bony Clutter PA-C Work Phone: [facility] 07-29-2024 08:27-0400 Diastolic blood pressure 85 mm[Hg] Maaglis Galindo DO Work Phone: [facility] 07-29-2024 08:27-0400 Heart rate 88 /min Magalis Galindo DO Work Phone: [facility] 07-29-2024 08:27-0400 SaO2% (BldA) [Mass fraction] 96 % Magalis Galindo DO Work Phone: [facility] 07-29-2024 08:27-0400 Systolic blood pressure 151 mm[Hg] Magalis Galindo DO Work Phone: [facility] 07-25-2024 14:56-0400 Body height 175.3 cm Will Nam MD Work Phone: [facility] 07-25-2024 14:56-0400 Body mass index (BMI) [Ratio] 27.02 kg/m2 Will Nam MD Work Phone: [facility] 07-25-2024 14:56-0400 Body weight 83.01 kg Will Nam MD Work Phone: [facility] 07-25-2024 14:56-0400 Diastolic blood pressure 90 mm[Hg] Will Nam MD Work Phone: [facility] 07-25-2024 14:56-0400 Heart rate 114 /min Will Nam MD Work Phone: [facility] 07-25-2024 14:56-0400 Respiratory rate 16 /min iWll Nam MD Work Phone: [facility] 07-25-2024 14:56-0400 Systolic blood pressure 122 mm[Hg] Will Nam MD Work Phone: [facility] 07-01-2024 11:46-0400 Body mass index (BMI) [Ratio] 27.35 kg/m2 Agnieszka Hines PRODUCTION SOUND MIXER.MILLED RICE BROKER Work Phone: [facility] 07-01-2024 11:46-0400 Body weight 84 kg Agnieszka Hines PRODUCTION SOUND MIXER.MILLED RICE BROKER Work Phone: [facility] 07-01-2024 11:46-0400 Diastolic blood pressure 79 mm[Hg] Agnieszka Hines PRODUCTION SOUND MIXER.MILLED RICE BROKER Work Phone: [facility] 07-01-2024 11:46-0400 Heart rate 79 /min Agnieszka Hines PRODUCTION SOUND MIXER.MILLED RICE BROKER Work Phone: [facility] 07-01-2024 11:46-0400 Respiratory rate 16 /min Agnieszka Hines PRODUCTION SOUND MIXER.MILLED RICE BROKER Work Phone: [facility] 07-01-2024 11:46-0400 Systolic blood pressure 121 mm[Hg] Agnieszka Hines PRODUCTION SOUND MIXER.MILLED RICE BROKER Work Phone: [facility] 04-28-2024 09:47-0400 Diastolic blood pressure 67 mm[Hg] Eduardo Maldonado MD Work Phone: [facility] 04-28-2024 09:47-0400 Respiratory rate 16 /min Eduardo Maldonado MD Work Phone: [facility] 04-28-2024 09:47-0400 Systolic blood pressure 122 mm[Hg] Eduardo Maldonado MD Work Phone: [facility] 04-28-2024 09:37-0400 Heart rate 69 /min Eduardo Maldonado MD Work Phone: [facility] 04-28-2024 09:37-0400 SaO2% (BldA) [Mass fraction] 95 % Eduardo Maldonado MD Work Phone: [facility] 04-28-2024 08:10-0400 Body mass index (BMI) [Ratio] 26.6 kg/m2 Eduardo Maldonado MD Work Phone: [facility] 04-28-2024 08:10-0400 Body temperature 97.7 [degF] Eduardo Maldonado MD Work Phone: [facility] 04-28-2024 08:10-0400 Body weight 81.7 kg Eduardo Maldonado MD Work Phone: [facility] 03-31-2024 15:21-0400 Body height 175.3 cm Chana Zavala MD Work Phone: [facility] 03-31-2024 15:21-0400 Body mass index (BMI) [Ratio] 26.61 kg/m2 Chana Zavala MD Work Phone: [facility] 03-31-2024 15:21-0400 Body temperature 99.1 [degF] Chana Zavala MD Work Phone: [facility] 03-31-2024 15:21-0400 Body weight 81.74 kg Chana Zavala MD Work Phone: [facility] 03-31-2024 15:21-0400 Diastolic blood pressure 88 mm[Hg] Chana Zavala MD Work Phone: [facility] 03-31-2024 15:21-0400 Heart rate 91 /min Chana Zavala MD Work Phone: [facility] 03-31-2024 15:21-0400 SaO2% (BldA) [Mass fraction] 98 % Chana Zavala MD Work Phone: [facility] 03-31-2024 15:21-0400 Systolic blood pressure 142 mm[Hg] Chana Zavala MD Work Phone: [facility] 02-18-2024 08:22-0400 Body mass index (BMI) [Ratio] 26.2 kg/m2 Agnieszka Hines PRODUCTION SOUND MIXER.MILLED RICE BROKER Work Phone: [facility] 02-18-2024 08:22-0400 Body weight 81.65 kg Agnieszka Hines PRODUCTION SOUND MIXER.MILLED RICE BROKER Work Phone: [facility] 02-18-2024 08:22-0400 Diastolic blood pressure 88 mm[Hg] Agnieszka Hines PRODUCTION SOUND MIXER.MILLED RICE BROKER Work Phone: [facility] 02-18-2024 08:22-0400 Heart rate 88 /min Agnieszka Hines PRODUCTION SOUND MIXER.MILLED RICE BROKER Work Phone: [facility] 02-18-2024 08:22-0400 Respiratory rate 16 /min Agnieszka Hines PRODUCTION SOUND MIXER.MILLED RICE BROKER Work Phone: [facility] 02-18-2024 08:22-0400 Systolic blood pressure 125 mm[Hg] Agnieszka Ihnes PRODUCTION SOUND MIXER.MILLED RICE BROKER Work Phone: [facility] 12-22-2022 13:03-0400 Diastolic blood pressure 103 mm[Hg] Agnieszka Hines PRODUCTION SOUND MIXER.MILLED RICE BROKER Work Phone: [facility] 12-22-2022 13:03-0400 Heart rate 93 /min Agnieszka Hines PRODUCTION SOUND MIXER.MILLED RICE BROKER Work Phone: [facility] 12-22-2022 13:03-0400 Systolic blood pressure 154 mm[Hg] Agnieszka Hines PRODUCTION SOUND MIXER.MILLED RICE BROKER Work Phone: [facility] 12-22-2022 13:02-0400 Body weight 89.36 kg Agnieszka Hines PRODUCTION SOUND MIXER.MILLED RICE BROKER Work Phone: [facility] 12-22-2022 13:02-0400 Respiratory rate 16 /min Agnieszka Hines PRODUCTION SOUND MIXER.MILLED RICE BROKER Work Phone: [facility] 12-13-2022 09:49-0400 Body temperature 98.2 [degF] Stephanie Athy PA-C Work Phone: [facility] 12-13-2022 09:49-0400 Body weight 90.27 kg Stephanie Athy PA-C Work Phone: [facility] 12-13-2022 09:49-0400 Diastolic blood pressure 112 mm[Hg] Stephanie Athy PA-C Work Phone: [facility] 12-13-2022 09:49-0400 Heart rate 88 /min Stephanie Athy PA-C Work Phone: [facility] 12-13-2022 09:49-0400 Respiratory rate 21 /min Stephanie Athy PA-C Work Phone: [facility] 12-13-2022 09:49-0400 SaO2% (BldA) [Mass fraction] 98 % Stephanie Athy PA-C Work Phone: [facility] 12-13-2022 09:49-0400 Systolic blood pressure 162 mm[Hg] Stephanie Athy PA-C Work Phone: [facility] 01-20-2022 15:32-0400 Body temperature 97.7 [degF] [facility] Work Phone: 01-20-2022 15:32-0400 Diastolic blood pressure 104 mm[Hg] [facility] Work Phone: 01-20-2022 15:32-0400 Heart rate 74 /min [facility] Work Phone: 01-20-2022 15:32-0400 Respiratory rate 73 /min [facility] Work Phone: 01-20-2022 15:32-0400 SaO2% (BldA) [Mass fraction] 100 % [facility] Work Phone: 01-20-2022 15:32-0400 Systolic blood pressure 157 mm[Hg] [facility] Work Phone: 01-20-2022 11:59-0400 Body height 175.26 cm [facility] Work Phone: 01-20-2022 11:59-0400 Body mass index (BMI) [Ratio] 27.6 kg/m2 [facility] Work Phone: 01-20-2022 11:59-0400 Body weight 84.9 kg [facility] Work Phone: Encounters Encounter Date Encounter Type Care Provider Facility Start: 05-27-2025 End: 05-27-2025 Office outpatient visit 15 minutes Marianne Wilhelm APRN.CNP Work Phone: [facility] Comment on above: Acute bronchitis, un specified organism (Primary Dx); Subacute cough; Post-nasal drip Start: 05-27-2025 End: 05-27-2025 ambulatory MARIANNE OLDER Facility:[facility] Start: 05-23-2025 End: 05-23-2025 Follow-up encounter Ruby LUCAS Work Phone: [facility] Comment on above: Results Start: 05-23-2025 End: 05-23-2025 Subsequent hospital visit by physician Xr [facility] Work Phone: Radiology Comment on above: Acute cough [R05.1] Start: 05-23-2025 End: 05-23-2025 Patient encounter procedure Ruby LUCAS Work Phone: [facility] Comment on above: Acute cough (Primary Dx); Sinobronchitis Start: 05-23-2025 End: 05-23-2025 ambulatory RUBY JONES Facility:[facility] Start: 05-12-2025 End: 05-12-2025 Patient encounter procedure Magalis Galindo DO Work Phone: Vascular Surgery Comment on above: Infrarenal abdominal aortic aneurysm (AAA) without rupture (Primary Dx); Iliac artery aneurysm Start: 05-12-2025 End: 05-12-2025 ambulatory LEE Mi TANHUSSEIN Facility:[facility] Start: 03-16-2025 End: 03-16-2025 Patient encounter procedure Venkat Howard MD Work Phone: Orthopaedics Comment on above: Injury of left littl e finger, initial encounter; Closed nondisplaced fracture of middle phalanx of left little finger with routine healing, subsequent encounter Start: 03-16-2025 End: 03-16-2025 ambulatory YOEL KEMP Facility:[facility] Start: 03-02-2025 End: 03-05-2025 Follow-up encounter Yoel Kemp APRN.CNP Work Phone: [facility] Start: 02-25-2025 End: 02-25-2025 Subsequent hospital visit by physician [facility] Work Phone: Radiology Comment on above: Injury of left littl e finger, initial encounter [S69.92XA] Start: 02-25-2025 End: 02-25-2025 Patient encounter procedure Yoel Kemp APRN.REFRACTORY SPECIALIST Work Phone: [facility] Comment on above: Wellness examination (Primary Dx); Injury of left little finger, initial encounter; Gastroesophageal reflux disease, unspecified whether esophagitis present; Hypercholesteremia; PEPE (obstructive sleep apnea); Encounter for screening examination for other mental health and behavioral disorders; Screening for depression; Encounter for therapeutic drug monitoring; Tobacco use Start: 02-25-2025 End: 02-25-2025 Patient encounter status Yoel Kemp PRODUCTION SOUND MIXER.REFRACTORY SPECIALIST Work Phone: [facility] Start: 02-25-2025 End: 02-25-2025 ambulatory YOEL KEMP Facility:[facility] Start: 02-25-2025 Encounter for genera l adult medical examination without abnormal findings YOEL KEMP [facility] Start: 02-02-2025 ambulatory LEE Mi HENSON Facilit y:[facility] Start: 02-02-2025 End: 02-02-2025 Subsequent hospital visit by physician [facility] Work Phone: Radiology Comment on above: Nephrolithiasis [N20 .0] Start: 10-29-2024 End: 10-30-2024 Refill Bony Clutter PA-C Work Phone: [facility] Comment on above: Refill Request Start: 10-28-2024 End: 10-28-2024 ambulatory LEE D SIXTO Facility:[facility] Start: 10-28-2024 End: 10-28-2024 Office outpatient new 30 minutes Bony Clutter PA-C Work Phone: [facility] Comment on above: Sore throat (Primary Dx); Herpes zoster without complication Start: 09-25-2024 End: 09-25-2024 ambulatory LEE D BORAAMPAS Facility:[facility] Start: 09-03-2024 End: 09-03-2024 ambulatory LEE D SIXTO Facility:[facility] Start: 09-03-2024 End: 09-03-2024 Office outpatient visit 25 minutes Ervin O'Terrence PA-C Work Phone: Urology Comment on above: Nephrolithiasis (Radha fransisca Dx); Urine volume deficient; Hypercalcinuria; Hypocitraturia; Hypernatriuria Start: 08-13-2024 End: 08-13-2024 Telephone encounter Ervin O'Terrence PA-C Work Phone: [facility] [place] Comment on above: new labs Start: 08-11-2024 End: 08-11-2024 ambulatory WILL (RES) RAY Facility:[facility] Start: 08-11-2024 End: 08-11-2024 Subsequent hospital visit by physician [facility] Work Phone: Radiology Comment on above: Hydronephrosis with ureteral calculus [N13.2] Start: 07-29-2024 End: 07-29-2024 ambulatory MAGALIS GALINDO Facility:[facility] Start: 07-29-2024 End: 07-29-2024 Patient encounter procedure Magalis Galindo DO Work Phone: Vascular Surgery Comment on above: Infrarenal abdominal aortic aneurysm (AAA) without rupture (HCC) Start: 07-28-2024 End: 07-28-2024 Telephone encounter Will Nam MD Work Phone: Urology Comment on above: Living Nurse - O ther Start: 07-27-2024 End: 07-28-2024 Refill Won Rodriguez MD Work Phone: Urology Comment on above: Refill Request Start: 07-25-2024 End: 07-25-2024 ambulatory WILL (RES) ARY Facility:[facility] Start: 07-25-2024 End: 07-25-2024 Patient encounter procedure Will Nam MD Work Phone: Urology Comment on above: Hydronephrosis with ureteral calculus (Primary Dx); Bilateral nephrolithiasis Start: 07-18-2024 End: 07-18-2024 ambulatory LEE HENSON Facility:[facility] Start: 07-15-2024 End: 07-15-2024 Patient encounter procedure Won Rodriguez MD Work Phone: Urology Comment on above: Hydronephrosis with ureteral calculus (Primary Dx); Bilateral nephrolithiasis; Tobacco use Start: 07-15-2024 End: 07-15-2024 Telemedicine consultation with patient Won Rodriguez MD Work Phone: Urology Start: 07-15-2024 End: 07-15-2024 ambulatory WON RODRIGUEZ Facility:[facility] Start: 07-14-2024 End: 07-14-2024 Telephone encounter Won Rodriguez MD Work Phone: Urology Comment on above: Appointment Start: 07-11-2024 End: 07-11-2024 ambulatory LEE SAHNICLAYTON Facility:[facility] Start: 07-11-2024 End: 07-11-2024 Subsequent hospital visit by [facility] Work Phone: Cat Scan Comment on above: Calculus of ureter [ N20.1] Start: 07-10-2024 End: 07-11-2024 ambulatory Zahraa Clemons RN Urology Start: 07-10-2024 End: 07-10-2024 Telephone encounter Zahraa Clemons RN Urology Comment on above: Living Nurse - O ther Start: 07-09-2024 End: 07-10-2024 Telephone encounter Lee Henson MD Work Phone: [facility] Comment on above: plan on kidney stone Start: 07-07-2024 End: 07-07-2024 ambulatory LEE HENSON Facility:[facility] Start: 07-07-2024 End: 07-07-2024 [facility] Work Phone: Rad[facility] Comment on above: Renal calculus [N20. 0] Start: 07-07-2024 End: 07-07-2024 Emergency department patient visit [facility] Facility:[facility] Start: 07-02-2024 End: 07-02-2024 ambulatory [facility] Facility:[facility] Start: 07-02-2024 End: 07-02-2024 Office consultation new/estab patient 60 min Ervin Nelson PA-C Work Phone: Urology Comment on above: Renal calculus (Prim sotero Dx); Calculus of ureter Start: 07-01-2024 End: 07-01-2024 Office outpatient visit 25 minutes Agnieszka Hines PRODUCTION SOUND MIXER.MILLED RICE BROKER Work Phone: [facility] Comment on above: Renal calculus (Prim sotero Dx); Infrarenal abdominal aortic aneurysm (AAA) without rupture (HCC) Start: 07-01-2024 End: 07-01-2024 ambulatory AGNIESZKA HINES Facility:[facility] Start: 06-29-2024 End: 06-29-2024 Emergency department patient visit zOzy Ely Facility:[facility] Start: 04-28-2024 End: 04-28-2024 Subsequent hospital visit by physician Eduardo Maldonado MD Work Phone: Ambulatory Surgery Comment on above: History of colonic p olyps [Z86.010] Start: 03-31-2024 End: 03-31-2024 Patient encounter procedure Chana Zavala MD Work Phone: General Surgery Comment on above: Screening for colon cancer; History of colonic polyps Start: 03-03-2024 Telephone encounter Lee remy MD Work Phone: Internal [facility] Comment on above: Medication Problem Start: 02-18-2024 End: 02-18-2024 Office outpatient visit 25 minutes Agnieszka Hines PRODUCTION SOUND MIXER.MILLED RICE BROKER Work Phone: [facility] Comment on above: Encounter for immuni zation (Primary Dx); Screening for colon cancer; Screening for prostate cancer; Gastroesophageal reflux disease, unspecified whether esophagitis present; PEPE (obstructive sleep apnea); Primary hypertension; Hypercholesteremia; Nasal polyp; Numbness and tingling in both hands Start: 02-11-2024 Refill Lee dobbs MD Work Phone: [facility] Comment on above: Refill Request Start: 11-05-2023 Telephone encounter Lee remy MD Work Phone: [facility] Start: 06-11-2023 Telephone encounter Claus Strong MD Work Phone: Neurology Comment on above: Patient Question; Lance rao Update Start: 05-15-2023 Telephone encounter Lee remy MD Work Phone: Internal [facility] Comment on above: DME supplier for CPA P Start: 03-19-2023 Telephone encounter Frida obando PA-C Work Phone: Orthopaedics Comment on above: Results Start: 03-15-2023 End: 03-15-2023 Subsequent hospital visit by physician Mri Radio [facility] (I-Stat/1.5t) Work Phone: Radiology Comment on above: Disorder of bone [M8 9.9] Start: 03-14-2023 Telephone encounter Lee remy MD Work Phone: [facility] Comment on above: Results - Sleep Stud y Start: 02-23-2023 End: 02-24-2023 ambulatory [facility] Facility:[facility] Start: 01-23-2023 Telephone encounter Agnieszka hernandez PRODUCTION SOUND MIXER.MILLED RICE BROKER Work Phone: Internal Medicine [facility] Comment on above: Results (HSAT) Start: 01-12-2023 End: 01-23-2023 Patient encounter procedure Psg Neur Home Sleep Test Mailout Work Phone: Neurology Comment on above: Primary hypertension ; Observed sleep apnea; Loud snoring Start: 01-09-2023 ambulatory Pcp (Historical) [facility] Start: 01-08-2023 Telephone encounter Agnieszka hernandez PRODUCTION SOUND MIXER.MILLED RICE BROKER Work Phone: Internal Medicine [facility] Comment on above: Referral Request (Or thopedic Referral for Left Hand) Start: 12-22-2022 End: 12-22-2022 Office outpatient visit [address] [facility] PRODUCTION SOUND MIXER.MILLED RICE BROKER Work Phone: Internal Medicine [facility] Comment on above: Localized swelling o f finger of left hand (Primary Dx); Pain in left hand; Primary hypertension; Observed sleep apnea; Loud snoring Start: 12-13-2022 End: 12-13-2022 Subsequent hospital visit by physician Xr [facility] Work Phone: Radiology Comment on above: Hand pain, left [M79 .642] Start: 12-13-2022 End: 12-13-2022 Patient encounter procedure Stephanie Lind PA-C Work Phone: [facility] Comment on above: Hand pain, left (Radha fransisca Dx) Start: 2022 End: 01-20-2022 Evaluation and management of inpatient [facility] Surgical 3 Procedures Date Procedure Procedure Detail Performing Clinician Start: 05-23-2025 Radiologic exam ches t 2 views Ruby LUCAS Work Phone: Start: 02-25-2025 Adult depression scr eening assessment Yoel Kemp PRODUCTION SOUND MIXER.REFRACTORY SPECIALIST Work Phone: Start: 02-25-2025 Lipid 1995 panel - S tobias or Plasma Xr [facility] Work Phone: Start: 10-28-2024 STREP A MOLECULAR (POC) Bony Newell PA-C Work Phone: Start: 07-25-2024 Urnls dip stick/tabl et rgnt auto w/o microscopy Will Nam MD Work Phone: Start: 07-11-2024 Ct abdomen & pelvis w/o contrast material Ervin Trenergiue PA-C Work Phone: Start: 07-07-2024 Us retroperitoneal r eal time w/image complete Ervin ORedMicaTerrence PA-C Work Phone: Start: 04-28-2024 Colonoscopy flx dx w /collj spec when pfrmd Chana Zavala MD Work Phone: Start: 04-28-2024 Colonoscopy Eduardo you MD Work Phone: Start: 02-18-2024 Adult depression scr eening assessment Eduardo Maldonado MD Work Phone: Start: 02-18-2024 Lipid 1996 panel - S tobias or Plasma Lee Henson MD Work Phone: Start: 03-15-2023 Mri upper extremity oth than jt w/o contr matrl Frida Curiel PA-C Work Phone: Start: 01-12-2023 Sleep std airflow hr t rate&o2 sat effort unatt Agnieszka Hines PRODUCTION SOUND MIXER.MILLED RICE BROKER Work Phone: Start: 12-15-2022 Lipid 1996 panel - S tobias or Plasma Lee Henson MD Work Phone: Start: 12-13-2022 Radex hand minimum 3 views Stephanie Lind PA-C Work Phone: Start: 01-20-2022 Extracorporeal shock wave lithotripsy Start: 01-20-2022 Diagnostic radiograp hy of abdomen Start: 2022 End: 2022 Viral antigen assay Start: 2022 CT of abdomen and pe lvis without contrast Start: 01-14-2018 Colonoscopy Stephanie Lind PA-C Work Phone: Plan of Treatment Date Care Activity Detail Author Start: 02-25-2030 Lipid panel Lipid Screening [facility] Start: 04-28-2029 Screening for malignant neoplasm of colon [facility] Start: 02-17-2029 Lipid panel Lipid Screening [facility] Start: 02-17-2029 Prostate specific antigen measurement Prostate Cancer Screening Discussion [facility] Start: 02-26-2028 Diabetes Screening Diabetes Screening [facility] Start: 12-16-2027 Lipid 1996 panel - Serum or Plasma Lipid Screening [facility] Start: 12-16-2027 Lipid panel Lipid Screening [facility] Start: 12-16-2027 LIPID SCREEN LIPID SCREEN [facility] Start: 09-25-2027 Diabetes Screening Diabetes Screening [facility] Start: 07-11-2027 Diabetes Screening Diabetes Screening [facility] Start: 02-17-2027 Diabetes Screening Diabetes Screening [facility] Start: 07-26-2026 LIPID SCREEN LIPID SCREEN [facility] Start: 05-27-2026 Annual PCP Team Chronic Disease Visit Annual PCP Team Chronic Disease Visit [facility] Start: 03-02-2026 End: 03-02-2026 Patient encounter procedure 03/02/2026 8:40 AM EDT Office Visit [facility] [address] [place] [address] Lee Henson MD [address] [place] [address] yearly physical [facility] Comment on above: yearly physical Start: 02-25-2026 Annual PCP Team Chronic Disease Visit Annual PCP Team Chronic Disease Visit [facility] Start: 02-25-2026 Anxiety Screening Anxiety Screening [facility] Start: 02-25-2026 Depression Screening Depression Screening [facility] Start: 12-15-2025 DIABETES SCREEN DIABETES SCREEN [facility] Start: 12-15-2025 Diabetes Screening Diabetes Screening [facility] Start: 11-10-2025 End: 11-10-2025 Patient encounter procedure Vasculary Surgery Comment on above: follow up CALLUM 07/29/24 Start: 07-01-2025 BP Controlled (<130/80) BP Controlled (<130/80) [facility] Start: 06-01-2025 Influenza vaccination [facility] Start: 05-12-2025 End: 05-12-2025 Patient encounter procedure Vasculary Surgery Comment on above: Infrarenal abdominal aortic aneurysm (AA A) without rupture (HCC) [I71.43] follow up Start: 03-16-2025 End: 03-16-2025 Patient encounter procedure 03/16/2025 12:45 PM EDT Office Visit Orthopaedics [address] [place], [place] [id number] Venkat Howard MD [address] [place] [address] * pt only wanted [facility] Comment on above: * pt only wanted [facility] Start: 02-25-2025 End: 05-27-2025 CBC W Auto Differential panel - Blood [facility] Comment on above: Expected: 02/25/2025, Expires: Start: 02-25-2025 End: 05-27-2025 Comprehensive metabolic 2000 panel - Serum or Plasma [facility] Comment on above: Expected: 02/25/2025, Expires: Start: 02-25-2025 End: 05-27-2025 Lipid 1996 panel - Serum or Plasma [facility] Comment on above: Expected: 02/25/2025, Expires: Start: 02-25-2025 End: 05-27-2025 Magnesium [Mass/volume] in Serum or Plasma [facility] Comment on above: Expected: 02/25/2025, Expires: Start: 02-25-2025 End: 02-25-2025 Patient encounter procedure [facility] Comment on above: Physical Start: 02-17-2025 Annual PCP Team Chronic Disease Visit Annual PCP Team Chronic Disease Visit [facility] Start: 02-17-2025 Anxiety Screening Anxiety Screening [facility] Start: 02-17-2025 BP Controlled (<130/80) BP Controlled (<130/80) [facility] Start: 02-17-2025 Covid-19 Vaccine () Covid-19 Vaccine () [facility] Comment on above: Postponed from 06/01/2023 (Declined at t his time) Start: 02-17-2025 Depression Screening Depression Screening [facility] Start: 02-17-2025 Hepatitis B Vaccine (1 of 3 - 19+ 3-dose series) Hepatitis B Vaccine (1 of 3 - 19+ 3-dose series) [facility] Comment on above: Postponed from 1987 (Declined at t his time) Postponed from 01/19 (Declined at this time) Start: 02-17-2025 Pneumococcal vaccination Pneumococcal Vaccine (1 of 2 - PCV) [facility] Comment on above: Postponed from 1974 (Declined at t his time) Postponed from 01/19 (Declined at this time) Start: 02-17-2025 Shingrix Vaccine (1 of 2) Shingrix Vaccine (1 of 2) [facility] Comment on above: Postponed from 2018 (Declined at t his time) Postponed from 01/19 (Declined at this time) Start: 01-27-2025 Urine microalbumin profile [facility] Start: 01-27-2025 End: 01-27-2025 Patient encounter procedure Vasculary Surgery Comment on above: Infrarenal abdominal aortic aneurysm (AA A) without rupture (HCC) [I71.43] [address] testing Nephrolithiasis [N20 .0] Start: 09-17-2024 End: 12-17-2024 25-hydroxyvitamin D3 [Mass/volume] in Serum or Plasma VITAMIN D 25 HYDROXY Lab Routine Nephrolithiasis Expected: 09/17/2024 (Approximate), Expires: 12/17/2024 [facility] Comment on above: Expected: 09/17/2024 (Approximate), Expi res: 12/17/2024 Start: 09-17-2024 End: 12-17-2024 Basic metabolic 2000 panel - Serum or Plasma BASIC METABOLIC PANEL Lab Routine Nephrolithiasis Expected: 09/17/2024 (Approximate), Expires: 12/17/2024 [facility] Work Phone: Comment on above: Expected: 09/17/2024 (Approximate), Expi res: 12/17/2024 Start: 09-17-2024 End: 12-17-2024 Calcium.ionized [Moles/volume] in Blood CALCIUM, IONIZED Lab Routine Nephrolithiasis Expected: 09/17/2024 (Approximate), Expires: 12/17/2024 [facility] Comment on above: Expected: 09/17/2024 (Approximate), Expi res: 12/17/2024 Start: 09-17-2024 End: 12-17-2024 Parathyrin.intact [Mass/volume] in Serum or Plasma PTH INTACT Lab Routine Nephrolithiasis Expected: 09/17/2024 (Approximate), Expires: 12/17/2024 [facility] Comment on above: Expected: 09/17/2024 (Approximate), Expi res: 12/17/2024 Start: 09-03-2024 End: 09-03-2024 Follow-up encounter 09/03/2024 5:00 PM [facility] [address] [place] [address] Ervin Nelson PA-C [address] [place] [address] Follow-up disposition: Return in about 6 weeks (around 08/13/2024), or if symptoms worsen or fail to improve./Left VM for patient regarding this afternoon's virtual appt/we do not have all results/possible to reschedule?/[facility] Comment on above: Follow-up disposition: Return in about 6 weeks (around 08/13/2024), or if symptoms worsen or fail to improve./Left VM for patient regarding this afternoon's virtual appt/we do not have all results/possible to reschedule?/[facility] Start: 08-21-2024 End: 08-21-2024 Patient encounter procedure 08/21/2024 8:00 AM EST Office Visit [facility] [address] [place] [address] Agnieszka Hines APRN.MILLED RICE BROKER [address] [place] [address] 6 Month follow up [facility] Comment on above: 6 Month follow up Start: 08-13-2024 End: 08-13-2024 Patient encounter procedure 08/13/2024 5:00 PM EST Office Visit Urology [address] [place] [address] Ervin Nelson PA-C [address] [place] [address] Follow-up disposition: Return in about 6 weeks (around 08/13/2024), or if symptoms worsen or fail to improve. Urology Comment on above: Follow-up disposition: Return in about 6 weeks (around 08/13/2024), or if symptoms worsen or fail to improve. Start: 08-11-2024 End: 08-11-2024 Patient encounter procedure Radiology Comment on above: Hydronephrosis with ureteral calculus [N 13.2] Start: 08-08-2024 End: 08-24-2025 US Kidney - bilateral and Urinary bladder US KIDNEY/BLADDER Radiology Routine Hydronephrosis with ureteral calculus Expected: 08/08/2024 (Approximate), Expires: 08/24/2025 [facility] Comment on above: Expected: 08/08/2024 (Approximate), Expi res: 08/24/2025 Start: 08-08-2024 End: 08-24-2025 XR Abdomen Supine and Upright XR ABDOMEN 1V SUPINE Radiology Routine Hydronephrosis with ureteral calculus Expected: 08/08/2024 (Approximate), Expires: 08/24/2025 [facility] Work Phone: Comment on above: Expected: 08/08/2024 (Approximate), Expi res: 08/24/2025 Start: 07-29-2024 End: 07-29-2024 Patient encounter procedure 07/29/2024 8:30 AM EDT Office Visit Vascular Surgery [address] [place] [address] Magalis Galindo DO [address] [place] [address] Infrarenal abdominal aortic aneurysm (AAA) without rupture (HCC) [I71.43] Vascular Surgery Comment on above: Infrarenal abdominal aortic aneurysm (AA A) without rupture (HCC) [I71.43] Start: 07-18-2024 End: 07-18-2024 Admission to same day surgery center 07/18/2024 8:45 AM EDT - 07/18/2024 10:15 AM EDT Surgery [address] [place] [address] [place] [address] [place], [place] [id number] CYSTOURETHROSCOPY W/ URETEROSCOPY AND/OR PYELOSCOPY W/ LITHOTRIPSY INCLUDE INSERTION OF INDWELLING URETERAL STENT [facility] Comment on above: CYSTOURETHROSCOPY W/ URETEROSCOPY AND/OR PYELOSCOPY W/ LITHOTRIPSY INCLUDE INSERTION OF INDWELLING URETERAL STENT Start: 07-18-2024 End: 07-18-2024 Cysto/uretero w/lithotripsy &indwell stent insrt CYSTOURETHROSCOPY W/ URETEROSCOPY AND/OR PYELOSCOPY W/ LITHOTRIPSY INCLUDE INSERTION OF INDWELLING URETERAL STENT Nephrolithiasis 07/18/2024 8:45 AM EDT [facility] Start: 07-18-2024 Subsequent hospital visit by physician [facility] Comment on above: Nephrolithiasis [N20.0] Start: 07-15-2024 End: 07-15-2024 Patient encounter procedure 07/15/2024 3:30 PM EDT [facility] [address] [place] [address] [place] [address] [place], [place] [id number] Discuss CT Results/Surgical Planning Urology Comment on above: Discuss CT Results/Surgical Planning Start: 07-11-2024 End: 10-10-2024 Basic metabolic 2000 panel - Serum or Plasma [facility] Comment on above: Expected: 07/11/2024, Expires: Start: 07-11-2024 End: 10-10-2024 CBC W Auto Differential panel - Blood [facility] Work Phone: Comment on above: Expected: 07/11/2024, Expires: Start: 07-11-2024 End: 10-10-2024 Urinalysis complete panel - Urine [facility] Comment on above: Expected: 07/11/2024, Expires: Start: 07-11-2024 End: 10-10-2024 URINE, PRESURGICAL STERILIZATION CULTURE [facility] Comment on above: Expected: 07/11/2024, Expires: Start: 07-11-2024 End: 07-11-2024 Patient encounter procedure 07/11/2024 9:00 AM EDT Appointment Cat Scan [address] [place], [place] [address] CCN approved per Admin [facility] Comment on above: CCN approved per Admin Start: 07-07-2024 End: 07-07-2024 Patient encounter procedure Radiology Comment on above: Renal calculus [N20.0] Start: 07-02-2024 End: 07-02-2024 Patient encounter procedure 07/02/2024 2:30 PM EDT Office Visit Urology [address] [place] [address] Ervin Nelson PA-C [address] [place], [place] [id number] Renal calculus [N20.0] Urology Comment on above: Renal calculus [N20.0] Start: 07-02-2024 End: 10-01-2024 LITHOLINK 24HR URINE PANEL LITHOLINK 24HR URINE PANEL Lab Routine Renal calculus Expected: 07/02/2024 (Approximate), Expires: 10/01/2024 [facility] Comment on above: Expected: 07/02/2024 (Approximate), Expi res: 10/01/2024 Start: 06-01-2024 Covid-19 Vaccine ( season) Covid-19 Vaccine ( season) [facility] Start: 06-01-2024 Influenza vaccination [facility] Start: 04-28-2024 End: 04-28-2024 Patient encounter procedure 04/28/2024 11:45 AM EDT Appointment Ambulatory Surgery [address] [place], [place] [address] Eduardo Maldonado MD [address] [place], [place] [phone] Ambulatory Surgery Start: 03-17-2024 End: 03-17-2024 Patient encounter procedure 03/17/2024 8:00 AM EDT Office Visit General Surgery [address] [place] [address] Chana Zavala MD [address] [place] [id number] Screening for colon cancer [Z12.11] General Surgery Comment on above: Screening for colon cancer [Z12.11] Start: 02-18-2024 End: 05-19-2024 CBC W Auto Differential panel - Blood [facility] Comment on above: Expected: 02/18/2024, Expires: 4 Start: 02-18-2024 End: 05-19-2024 Comprehensive metabolic 2000 panel - Serum or Plasma [facility] Comment on above: Expected: 02/18/2024, Expires: 4 Start: 02-18-2024 End: 05-19-2024 LIPID PANEL, NONFASTING [facility] Comment on above: Expected: 02/18/2024, Expires: 4 Start: 02-18-2024 End: 05-19-2024 Magnesium [Mass/volume] in Serum or Plasma [facility] Comment on above: Expected: 02/18/2024, Expires: Start: 02-18-2024 End: 05-19-2024 PSA/PROSTATE SPECIFIC ANTIGEN SCREENING [facility] Work Phone: Comment on above: Expected: 02/18/2024, Expires: Start: 02-18-2024 End: 05-19-2024 Urate [Mass/volume] in Serum or Plasma [facility] Comment on above: Expected: 02/18/2024, Expires: Start: 02-18-2024 End: 02-18-2024 Patient encounter procedure 02/18/2024 8:00 AM EDT Office Visit [facility] [address] [place], [place] [id number] Agnieszka Hines APRN.MILLED RICE BROKER [address] [place], [place] [phone] Yearly Check Up [facility] Comment on above: Yearly Check Up Start: 10-26-2023 DIABETES SCREEN DIABETES SCREEN [facility] Start: 10-01-2023 Behavioral Health Screening Behavioral Health Screening [facility] Start: 10-01-2023 Depression Assessment Depression Assessment [facility] Start: 06-01-2023 Covid-19 Vaccine () Covid-19 Vaccine () [facility] Start: 06-01-2023 Influenza vaccination [facility] Start: 02-13-2023 PROSTATE CANCER SCREENING DISCUSSION PROSTATE CANCER SCREENING DISCUSSION [facility] Start: 02-13-2023 Prostate specific antigen measurement Prostate Cancer Screening Discussion [facility] Start: 01-14-2023 Colonoscopy COLONOSCOPY [facility] Start: 01-14-2023 COLORECTAL CANCER SCREENING COLORECTAL CANCER SCREENING [facility] Start: 01-14-2023 Screening for malignant neoplasm of colon [facility] Start: 10-01-2022 DEPRESSION ASSESSMENT DEPRESSION ASSESSMENT [facility] Start: 07-28-2022 ANNUAL PCP TEAM CHRONIC DISEASE VISIT ANNUAL PCP TEAM CHRONIC DISEASE VISIT [facility] Start: 06-01-2022 Influenza vaccination INFLUENZA (#1) [facility] Start: 05-19-2021 COVID-19 VACCINE (3 - Booster for Pfizer series) COVID-19 VACCINE (3 - Booster for Pfizer series) [facility] Start: 05-19-2021 COVID-19 VACCINE (3 - Pfizer series) COVID-19 VACCINE (3 - Pfizer series) [facility] Start: 08-15-2018 FECAL OCCULT BLOOD FECAL OCCULT BLOOD [facility] Start: 08-15-2018 Screening for malignant neoplasm of colon Fecal Occult Blood [facility] Start: 2017 SHINGRIX VACCINE (1 of 2) SHINGRIX VACCINE (1 of 2) [facility] Start: 2013 Screening for malignant neoplasm of colon [facility] Start: 01-20-2012 COLOGUARD (FIT-DNA) COLOGUARD (FIT-DNA) [facility] Start: 01-20-[address] COLONOGRAPHY [facility] Start: 01-20-2012 Screening for malignant neoplasm of colon [facility] Start: 01-20-2012 SIGMOIDOSCOPY SIGMOIDOSCOPY [facility] Start: 1986 Hepatitis B Vaccine (1 of 3 - 19+ 3-dose series) Hepatitis B Vaccine (1 of 3 - 19+ 3-dose series) [facility] Start: 1986 Pneumococcal Vaccine: 50+ (1 of 2 - PCV) Pneumococcal Vaccine: 50+ (1 of 2 - PCV) [facility] Start: 1985 BP CONTROLLED (<130/80) BP CONTROLLED (<130/80) [facility] Start: 1973 PNEUMOCOCCAL (1 - PCV) PNEUMOCOCCAL (1 - PCV) [facility] Start: 1973 Pneumococcal vaccination [facility] Start: 1967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 Progress Notes Filed: 02/25/2025 08:57 Note Text: CHIEF COMPLAINT: Patient presents with: Physical: pain in left 5th digit from an injury when fell mowing 3 weeks ago HISTORY: Christiano Butcher is a 60 year old male who presents 02/25/2025 for his Yearly Physical Exam. They are here today for a wellness exam. Is able to complete ADL's with independence. Christiano is a 60-year-old male, with a history of GERD, HTN, HLD, and sleep apnea, presenting for a wellness exam and evaluation of left fifth finger pain and swelling. Christiano reports a fall 3 weeks ago while mowing the lawn, resulting in injury to the left fifth finger. He describes the pain as severe initially, with significant swelling that has since reduced by approximately 50%. The pain is localized to the proximal interphalangeal joint and occasionally wakes him at night. He denies pain in the wrist or other fingers. 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 He denies any bruising or bleeding associated with the current injury. Christiano is currently taking Protonix for GERD, amlodipine for HTN, and a cholesterol-lowering medication. He reports good control of GERD symptoms and blood pressure when medications are taken as prescribed, but notes occasional forgetfulness, particularly on weekends, leading to exacerbation of symptoms such as heartburn and headaches. He takes all medications in the morning for convenience. He consents to updating blood work to assess cholesterol levels and is fasting today. Christiano has a history of sleep apnea but is unable to tolerate CPAP therapy due to frequent movement during sleep. He sleeps with his head elevated to manage GERD symptoms and reports an average of 5 hours of sleep per night. He denies any concerns about depression or anxiety. Christiano follows a diet that includes a significant amount of fish to help manage cholesterol levels. He is a smoker, consuming approximately 1/4 to 1/2 pack per day, and denies any interest in vaccinations. He reports occasional chest tightness and dyspnea, which he attributes to GERD and smoking. He denies any issues with swelling in his feet or legs. Christiano recently underwent a colonoscopy and reports no family history of colon or prostate cancer. He prefers to see his primary care physician once a year for wellness visits and medication refills. Other Providers: None Depression Screen Q1: Over the past two weeks, have you felt down, depressed or hopeless? No Q2: Over the past two weeks, have you felt little interest or pleasure in doing things? No Current exercise habits: Active Dietary habits: Tries to eat health Hearing difficulties: No Safe in current home environment: Yes Tobacco: Smoking about 1/4-1/2 PPD ETOH: Occasional Family History Cancer Colon: No Prostate: No Past Medical History: PAST MEDICAL HISTORY Diagnosis Date Esophageal reflux 05/14/2008 Essential hypertension, benign borderline Hypercholesteremia Nephrolithiasis Tobacco use disorder 05/14/2008 Unspecified essential hypertension 05/14/2008 Family Medical History: FAMILY HISTORY Problem Relation Age of Onset None Mother Lipids Father None Sister None Sister Coronary Artery Disease Brother Social History: Social History Tobacco Use Smoking status: Every Day Current packs/day: 0.50 Average packs/day: 0.5 packs/day for 32.0 years (16.0 ttl pk-yrs) Types: Cigarettes Smokeless tobacco: Never Tobacco comments: down to 1/2 to 3/4 PPD Vaping Use Vaping status: Former Substance Use Topics Alcohol use: Yes Comment: occassional liquor Drug use: No Allergies: ALLERGIES Allergen Reactions Chantix [Vareniclin* Intolerance Decreased mood Lipitor [Atorvastat* Intolerance muscle aches, joint aches, fatigue, GI upset Rosuvastatin Intolerance soreness and swelling -- patient states these improved after stopped this med Medications: Current Outpatient Medications Medication Sig Potassium Citrate 15 mEq TbER Take 1 tablet by mouth two times a day. amLODIPine (NORVASC) 10 mg tablet Take 1 tablet by mouth once daily. DOSE CHANGE, take one daily pantoprazole DR (PROTONIX) 40 mg tablet Take 1 tablet by mouth once daily. simvastatin (ZOCOR) 40 mg tablet Take 1 tablet by mouth daily at bedtime. No current facility-administered medications for this visit. Chronic Problem List: ACTIVE PROBLEM LIST Kidney Stone On Left Side - 07/01/2024 Renal Colic - 07/01/2024 History of Colonic Polyps - 04/28/2024 Migraine Without Aura and Without Status Migrainosus, Not Intractable - 10/29/2019 Encounter for Long-Term (Current) Use of Medications - 12/26/2017 Comment: Added automatically from request for surgery [id number] Encounter for Screening for Maligna (more content not included)... [facility] 02-25-2025 History of Present illness Narrative CHIEF COMPLAINT: Patient presents with: Physical: pain in left 5th digit from an injury when fell mowing 3 weeks ago HISTORY: Christiano Butcher is a 60 year old male who presents 02/25/2025 for his Yearly Physical Exam. They are here today for a wellness exam. Is able to complete ADL's with independence. Christiano is a 60-year-old male, with a history of GERD, HTN, HLD, and sleep apnea, presenting for a wellness exam and evaluation of left fifth finger pain and swelling. Christiano reports a fall 3 weeks ago while mowing the lawn, resulting in injury to the left fifth finger. He describes the pain as severe initially, with significant swelling that has since reduced by approximately 50%. The pain is localized to the proximal interphalangeal joint and occasionally wakes him at night. He denies pain in the wrist or other fingers. 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 He denies any bruising or bleeding associated with the current injury. Christiano is currently taking Protonix for GERD, amlodipine for HTN, and a cholesterol-lowering medication. He reports good control of GERD symptoms and blood pressure when medications are taken as prescribed, but notes occasional forgetfulness, particularly on weekends, leading to exacerbation of symptoms such as heartburn and headaches. He takes all medications in the morning for convenience. He consents to updating blood work to assess cholesterol levels and is fasting today. Christiano has a history of sleep apnea but is unable to tolerate CPAP therapy due to frequent movement during sleep. He sleeps with his head elevated to manage GERD symptoms and reports an average of 5 hours of sleep per night. He denies any concerns about depression or anxiety. Christiano follows a diet that includes a significant amount of fish to help manage cholesterol levels. He is a smoker, consuming approximately 1/4 to 1/2 pack per day, and denies any interest in vaccinations. He reports occasional chest tightness and dyspnea, which he attributes to GERD and smoking. He denies any issues with swelling in his feet or legs. Christiano recently underwent a colonoscopy and reports no family history of colon or prostate cancer. He prefers to see his primary care physician once a year for wellness visits and medication refills. Other Providers: None Depression Screen Q1: Over the past two weeks, have you felt down, depressed or hopeless? No Q2: Over the past two weeks, have you felt little interest or pleasure in doing things? No Current exercise habits: Active Dietary habits: Tries to eat health Hearing difficulties: No Safe in current home environment: Yes Tobacco: Smoking about 1/4-1/2 PPD ETOH: Occasional Family History Cancer Colon: No Prostate: No Past Medical History: PAST MEDICAL HISTORY Diagnosis Date Esophageal reflux 05/14/2008 Essential hypertension, benign borderline Hypercholesteremia Nephrolithiasis Tobacco use disorder 05/14/2008 Unspecified essential hypertension 05/14/2008 Family Medical History: FAMILY HISTORY Problem Relation Age of Onset None Mother Lipids Father None Sister None Sister Coronary Artery Disease Brother Social History: Social History Tobacco Use Smoking status: Every Day Current packs/day: 0.50 Average packs/day: 0.5 packs/day for 32.0 years (16.0 ttl pk-yrs) Types: Cigarettes Smokeless tobacco: Never Tobacco comments: down to 1/2 to 3/4 PPD Vaping Use Vaping status: Former Substance Use Topics Alcohol use: Yes Comment: occassional liquor Drug use: No Allergies: ALLERGIES Allergen Reactions Chantix [Vareniclin* Intolerance Decreased mood Lipitor [Atorvastat* Intolerance muscle aches, joint aches, fatigue, GI upset Rosuvastatin Intolerance soreness and swelling -- patient states these improved after stopped this med Medications: Current Outpatient Medications Medication Sig Potassium Citrate 15 mEq TbER Take 1 tablet by mouth two times a day. amLODIPine (NORVASC) 10 mg tablet Take 1 tablet by mouth once daily. DOSE CHANGE, take one daily pantoprazole DR (PROTONIX) 40 mg tablet Take 1 tablet by mouth once daily. simvastatin (ZOCOR) 40 mg tablet Take 1 tablet by mouth daily at bedtime. No current facility-administered medications for this visit. Chronic Problem List: ACTIVE PROBLEM LIST Kidney Stone On Left Side - 07/01/2024 Renal Colic - 07/01/2024 History of Colonic Polyps - 04/28/2024 Migraine Without Aura and Without Status Migrainosus, Not Intractable - 10/29/2019 Encounter for Long-Term (Current) Use of Medications - 12/26/2017 Comment: Added automatically from request for surgery [id number] Encounter for Screening for Malignant Neoplasm of Colon - 12/26/2017 Comment: Added automatically from request for surgery [id number] Gastroesophageal Reflux Disease - 12/26/2017 Comment: Added automatically from request for surgery [id number] Hypercholesteremia - 01/15/2015 Esophageal Reflux - 05/14/2008 Tobacco Use Disorder - 05/14/2008 Primary Hypertension Comment: borderline Other Hammer Toe (Acquired) - 07/27/2005 Review of Systems Review of Systems Constitutional: Negative. Respiratory: Positive for chest tightness and shortness of breath. Negative for apnea, cough, choking, wheezing and stridor. See HPI Cardiovascular: Negative. Musculoskeletal: Positive for arthralgias and joint swelling. OBJECTIVE BP 130/82 Pulse 88 Ht 5' 7.25 (1.71m) Wt 179 lb 14.3 oz (81.6kg) SpO2 98% BMI 27.97 kg/(m^2). Physical Exam Vitals and nursing note reviewed. Constitutional: General: He is awake. He is not in acute distress. Appearance: Normal appearance. He is well-developed and well-groomed. He is not ill-appearing, toxic-appearing or diaphoretic. HENT: Head: Normocephalic. Right Ear: External ear normal. Left Ear: External ear normal. Nose: Nose normal. Eyes: General: Vision grossly intact. Conjunctiva/sclera: Conjunctivae normal. Pupils: Pupils are equal, round, and reactive to light. Neck: Vascular: No JVD. Trachea: Trachea normal. Cardiovascular: Rate and Rhythm: Normal rate and regular rhythm. Pulses: Normal pulses. Heart sounds: Normal heart sounds. No murmur heard. Pulmonary: Effort: Pulmonary effort is normal. No accessory muscle usage, prolonged expiration or respiratory distress. Breath sounds: Normal breath sounds. Musculoskeletal: Left hand: Tenderness and bony tenderness present. Decreased range of motion. Cervical back: Neck supple. Comments: Left hand, little finger, PIP joint with moderate edema, tenderness and decrease in ROM Skin: General: Skin is warm and dry. Capillary Refill: Capillary refill takes less than 2 seconds. Neurological: General: No focal deficit present. Mental Status: He is alert and oriented to person, place, and time. Mental status is at baseline. Psychiatric: Attention and Perception: Attention and perception normal. Mood and Affect: Mood and affect normal. Speech: Speech normal. Behavior: Behavior normal. Behavior is cooperative. Thought Content: Thought content normal. Cognition and Memory: Cognition and memory normal. Judgment: Judgment normal. ASSESSMENT/PLAN: 1. Wellness examination (Z00.00) Comprehensive physical examination performed. No significant abnormalities noted. Patient is due for routine blood work to monitor overall health status. - Ordered fasting blood work to be done today. - Scheduled follow-up in one year for next wellness examination. 2. Injury of left little finger, initial encounter (S69.92XA) Patient reports a fall three weeks ago resulting in persistent pain and swelling in the left little finger. Physical examination reveals significant swelling and limited range of motion at the proximal interphalangeal joint. No ecchymosis observed. - Ordered X-ray of the left little finger to rule out fracture. - Advised patient to avoid activities that may exacerbate the injury. 3. Gastroesophageal reflux disease, unspecified whether esophagitis present (K21.9) GERD is well-controlled with Protonix, though patient occasionally forgets to take medication on weekends, resulting in symptoms. - Continue Protonix as prescribed. - Educated patient on the importance of consistent medication adherence to prevent symptoms. 4. Hypercholesteremia (E78.00) Patient is currently taking cholesterol medication in the morning along with other medications. No issues reported with medication adherence. - Ordered fasting lipid panel to assess current cholesterol levels. - Continue current cholesterol medication regimen. 5. PEPE (obstructive sleep apnea) (G47.33) Patient has a history of PEPE but is unable to tolerate CPAP therapy due to discomfort and frequent movement during sleep. Patient reports waking up multiple times during the night and sleeping with the head elevated. - Discussed alternative treatment options, including oral appliances, but noted that these may not be suitable due to patient's use of dentures. - Advised patient to continue sleeping with the head elevated and to maintain a healthy weight. - Monitor symptoms and consider further evaluation if condition worsens. 6. Encounter for screening examination for other mental health and behavioral disorders (Z13.39) Screening for depression (Z13.31) No concerns about depression or anxiety reported by the patient. 7. Encounter for therapeutic drug monitoring (Z51.81) Patient is on multiple medications, including Protonix, amlodipine, and cholesterol medication. Adherence is generally good, though occasional missed doses are reported. - Ordered blood work to monitor medication efficacy and potential side effects. - Refilled prescriptions for Protonix, amlodipine, and cholesterol medication. 8. Tobacco use (Z72.0) Patient smokes approximately 1/4 to 1/2 pack of cigarettes per day. - Discussed the importance of smoking cessation for overall health improvement. - Advised patient to consider smoking cessation programs or resources. Recording using [employer] software for draft documentation of the visit was discussed with the patient/authorized c s s representative; all questions welcomed and answered. Patient/authorized c s s representative agreed to proceed Wellness exam completed. Health maintenance reviewed and updated. Chronic conditions and medications reviewed and updated as needed. Encouraged regular physical activity as tolerated, Healthy diet, and health promoting lifestyle. Encouraged regular eye doctor and dental visits. Portions of this note have been entered by ancillary staff. I have reviewed and when necessary edited, so that they are an adequate record of my encounter with this patient Please note that parts of this document were created using [employer] and therefore may contain grammatical errors. Patient verbalizes understanding of instructions from today's visit and in agreement with treatment plan. Questions answered. Agrees to call the office if questions, concerns or issues with acute symptoms not improving or if they worsen. See diagnoses and orders for additional plan(s). Allergies and medications were reviewed, list was updated, and refills given if needed. Past medical, surgical, social, and family history reviewed and updated as appropriate. Encouraged proper diet & exercise as well as compliance with taking medications. Age-appropriate health preventative measures were discussed. Return in about 1 year (around 02/25/2026) for Wellness physical.. NILDA Avila documented in this encounter [facility] 10-30-2024 Telephone encounter Note Automated sure scripts refill request. [facility] pharmacy contacted and prescription has already been filled. [facility] Work Phone: 10-30-2024 Miscellaneous Notes Automated sure scripts refill request. [facility] pharmacy contacted and prescription has already been filled. documented in this encounter [facility] 10-28-2024 Note HNO ID: [id number] Author: BONY NEWELL PA-C Service: ? Author Type: Physician Machine Candle Molder Type: Progress Notes Filed: 10/28/2024 08:29 Note Text: This note was created using [employer]. Subjective Christiano Butcher is a 59 year old male. Patient is a 59-year-old male who complains of left sore throat and left ear pain that he has been experiencing for the past 1 day. Patient reports no fever but does describe chills. Patient denies dysphagia and states he is tolerating food and fluids although it is painful to do so. Patient reports no congestion, sinus pressure and states that his right ear is asymptomatic and nontender. Patient denies cough. Patient also complains of tenderness to his left frontal scalp that has been present for the past 1 day. Patient denies injury to the site. Patient has noted no redness, blisters or other changes to the skin. Patient states that in addition to being painful it is also very sensitive. Patient has noted no bleeding, serous appearing fluid to the area. Patient reports that his symptoms are confined to a specific area along his left frontal scalp and that the remainder of his scalp as well as his face is asymptomatic and nontender. He has no history of shingles. Patient states that the family members at home are asymptomatic. Ear Pain Associated symptoms include chills and a sore throat. Review of Systems Constitutional: Positive for chills. HENT: Positive for ear pain and sore throat. All other systems reviewed and are negative. Objective BP 146/87 Pulse 79 Temp 36.4 ?C (97.6 ?F) Resp 18 Wt 83 kg (182 lb 15.7 oz) SpO2 98% BMI 27.02 kg/m? Physical Exam Vitals and nursing note reviewed. Constitutional: Appearance: Normal appearance. He is normal weight. HENT: Head: Normocephalic and atraumatic. Right Ear: Tympanic membrane, ear canal and external ear normal. Left Ear: Tympanic membrane, ear canal and external ear normal. Nose: Nose normal. Mouth/Throat: Mouth: Mucous membranes are moist. Pharynx: Oropharynx is clear. Eyes: Extraocular Movements: Extraocular movements intact. Conjunctiva/sclera: Conjunctivae normal. Pupils: Pupils are equal, round, and reactive to light. Cardiovascular: Rate and Rhythm: Normal rate and regular rhythm. Pulses: Normal pulses. Heart sounds: Normal heart sounds. Pulmonary: Effort: Pulmonary effort is normal. Breath sounds: Normal breath sounds. Musculoskeletal: Cervical back: Normal range of motion and neck supple. Skin: General: Skin is warm and dry. Capillary Refill: Capillary refill takes less than 2 seconds. Comments: Skin to the left frontal scalp is completely clear with no evidence of erythema, vesicles, pustules or other acute findings. Patient demonstrates exquisite tenderness with to light palpation to the left frontal scalp within the C2 dermatome margin. There is no underlying induration or fluctuance noted with palpation. Patient's hair distribution is thin and excellent visibility of the scalp was easily obtained. Remainder of exam to the scalp and facial skin is unremarkable. Neurological: General: No focal deficit present. Mental Status: He is alert and oriented to person, place, and time. Psychiatric: Mood and Affect: Mood normal. Behavior: Behavior normal. Thought Content: Thought content normal. Judgment: Judgment normal. Assessment and Plan Physical exam findings as noted above. Rapid strep PCR is negative. Patient was provided with prescriptions for acyclovir 800 mg and prednisone 20 mg. Supportive care instructions were discussed and the patient verbalizes good understanding of same. CLINICAL IMPRESSION: Herpes Zoster Left C2 Dermatome; Sore Throat ASSESSMENT/PLAN: 1. Sore throat - ICD9: 462, ICD10: J02.9 (primary diagnosis) - STREP A MOLECULAR (POC) - PREDNISONE 20 MG TABLET 2. Herpes zoster without complication - ICD9: 053.9, ICD10: B02.9 - ACYCLOVIR 800 MG TABLET Bony Newell PA-C [facility] 10-28-2024 History of Present illness Narrative This note was created using [email or web address]. Subjective Christiano Butcher is a 59 year old male. Patient is a 59-year-old male who complains of left sore throat and left ear pain that he has been experiencing for the past 1 day. Patient reports no fever but does describe chills. Patient denies dysphagia and states he is tolerating food and fluids although it is painful to do so. Patient reports no congestion, sinus pressure and states that his right ear is asymptomatic and nontender. Patient denies cough. Patient also complains of tenderness to his left frontal scalp that has been present for the past 1 day. Patient denies injury to the site. Patient has noted no redness, blisters or other changes to the skin. Patient states that in addition to being painful it is also very sensitive. Patient has noted no bleeding, serous appearing fluid to the area. Patient reports that his symptoms are confined to a specific area along his left frontal scalp and that the remainder of his scalp as well as his face is asymptomatic and nontender. He has no history of shingles. Patient states that the family members at home are asymptomatic. Ear Pain Associated symptoms include chills and a sore throat. Review of Systems Constitutional: Positive for chills. HENT: Positive for ear pain and sore throat. All other systems reviewed and are negative. Objective BP 146/87 Pulse 79 Temp 36.4 C (97.6 F) Resp 18 Wt 83 kg (182 lb 15.7 oz) SpO2 98% BMI 27.02 kg/m Physical Exam Vitals and nursing note reviewed. Constitutional: Appearance: Normal appearance. He is normal weight. HENT: Head: Normocephalic and atraumatic. Right Ear: Tympanic membrane, ear canal and external ear normal. Left Ear: Tympanic membrane, ear canal and external ear normal. Nose: Nose normal. Mouth/Throat: Mouth: Mucous membranes are moist. Pharynx: Oropharynx is clear. Eyes: Extraocular Movements: Extraocular movements intact. Conjunctiva/sclera: Conjunctivae normal. Pupils: Pupils are equal, round, and reactive to light. Cardiovascular: Rate and Rhythm: Normal rate and regular rhythm. Pulses: Normal pulses. Heart sounds: Normal heart sounds. Pulmonary: Effort: Pulmonary effort is normal. Breath sounds: Normal breath sounds. Musculoskeletal: Cervical back: Normal range of motion and neck supple. Skin: General: Skin is warm and dry. Capillary Refill: Capillary refill takes less than 2 seconds. Comments: Skin to the left frontal scalp is completely clear with no evidence of erythema, vesicles, pustules or other acute findings. Patient demonstrates exquisite tenderness with to light palpation to the left frontal scalp within the C2 dermatome margin. There is no underlying induration or fluctuance noted with palpation. Patient's hair distribution is thin and excellent visibility of the scalp was easily obtained. Remainder of exam to the scalp and facial skin is unremarkable. Neurological: General: No focal deficit present. Mental Status: He is alert and oriented to person, place, and time. Psychiatric: Mood and Affect: Mood normal. Behavior: Behavior normal. Thought Content: Thought content normal. Judgment: Judgment normal. Assessment and Plan Physical exam findings as noted above. Rapid strep PCR is negative. Patient was provided with prescriptions for acyclovir 800 mg and prednisone 20 mg. Supportive care instructions were discussed and the patient verbalizes good understanding of same. CLINICAL IMPRESSION: Herpes Zoster Left C2 Dermatome; Sore Throat ASSESSMENT/PLAN: 1. Sore throat - ICD9: 462, ICD10: J02.9 (primary diagnosis) - STREP A MOLECULAR (POC) - PREDNISONE 20 MG TABLET 2. Herpes zoster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 Negative. Neurological: Positive for numbness (bilateral hands). Objective BP 125/88 Pulse 88 Resp 16 Wt 81.6 kg (180 lb) BMI 26.20 kg/m Physical Exam Vitals and nursing note reviewed. Constitutional: Appearance: Normal appearance. HENT: Head: Normocephalic and atraumatic. Eyes: Conjunctiva/sclera: Conjunctivae normal. Neck: Thyroid: No thyromegaly. Vascular: Normal carotid pulses. No carotid bruit or JVD. Cardiovascular: Rate and Rhythm: Normal rate and regular rhythm. Pulses: Carotid pulses are 2+ on the right side and 2+ on the left side. Radial pulses are 2+ on the right side and 2+ on the left side. Heart sounds: Normal heart sounds. Pulmonary: Effort: Pulmonary effort is normal. Breath sounds: Normal breath sounds. Abdominal: General: Bowel sounds are normal. Palpations: Abdomen is soft. Musculoskeletal: Right shoulder: Normal range of motion. Left shoulder: Normal range of motion. Right elbow: Normal range of motion. No tenderness. Left elbow: Normal range of motion. No tenderness. Right hand: No tenderness. Normal range of motion. Normal sensation. Normal capillary refill. Normal pulse. Left hand: No tenderness. Normal range of motion. Normal sensation. Normal capillary refill. Normal pulse. Cervical back: No tenderness. Right lower leg: No edema. Left lower leg: No edema. Skin: General: Skin is warm and dry. Neurological: General: No focal deficit present. Mental Status: He is alert and oriented to person, place, and time. ALLERGIES Allergen Reactions Chantix [Vareniclin* Intolerance Decreased mood Lipitor [Atorvastat* Intolerance muscle aches, joint aches, fatigue, GI upset Medications amLODIPine (NORVASC) 10 mg tablet Take 1 tablet by mouth once daily. DOSE CHANGE, take one daily pantoprazole DR (PROTONIX) 40 mg tablet Take 1 tablet by mouth once daily. rosuvastatin (CRESTOR) 5 mg tablet Take 1 tablet by mouth once daily. fluticasone (FLONASE) 50 mcg/actuation nasal spray Use 2 Sprays in each nostril once daily. Rinse mouth after use. (Patient not taking: Reported on 02/18/2024) CPAP/BIPAP/OTHER Auto titrating PAP device 5-15 cmH2O with humidification, small ResMed AirFit P10 nasal pillows mask and clinical follow up with data download after 1 month to ensure the pressure range is appropriate. (Patient not taking: Reported on 02/18/2024) PAST MEDICAL HISTORY Diagnosis Date Esophageal reflux 05/14/2008 Essential hypertension, benign borderline Tobacco use disorder 05/14/2008 Unspecified essential hypertension 05/14/2008 Social History Tobacco Use Smoking status: Every Day Packs/day: 0.50 Years: 32.00 Additional pack years: 0.00 Total pack years: 16.00 Types: Cigarettes Smokeless tobacco: Never Tobacco comments: down to /2 to 3/4 PPD Substance Use Topics Alcohol use: Yes Comment: occassional liquor Drug use: No Latest Ref Rng 05/07/2020 10/26/2020 07/26/2021 12/15/2022 WBC 3.70 - 11.00 k/uL 6.60 8.53 RBC 4.20 - 6.00 m/uL 4.71 4.95 Hemoglobin 13.0 - 17.0 g/dL 15.2 15.8 Hematocrit 39.0 - 51.0 % 43.4 46.8 MCV 80.0 - 100.0 fL 92.1 94.5 MCH 26.0 - 34.0 pg 32.3 31.9 MCHC 30.5 - 36.0 g/dL 35.0 33.8 RDW-CV 11.5 - 15.0 % 13.4 14.1 Platelet Count 150 - 400 k/uL 220 247 MPV 9.0 - 12.7 fL 9.7 9.9 Neut% % 54.7 89.9 Abs Neut (ANC) 1.45 - 7.50 k/uL 3.59 7.67 (H) Lymph% % 32.4 7.5 Abs Lymph 1.00 - 4.00 k/uL 2.14 0.64 (L) Luce% % 9.4 2.0 Abs Luce <0.87 k/uL 0.62 0.17 Eosin% % 2.6 0.0 Abs Eosin <0.46 k/uL 0.17 <0.03 Baso% % 0.9 0.2 Abs Baso <0.11 k/uL 0.06 <0.03 Immature Gran % % 0.4 IMMATURE GRANS (ABS) <0.10 k/uL 0.03 NRBC /100 WBC 0.0 Absolute nRBC <0.01 k/uL <0.01 <0.01 DTYPE Auto Nucleated Reds 0 /100 WBC 0.0 Diff Type Auto Diff Protein, Total 6.3 - 8.0 g/dL 7.0 7.3 Albumin 3.9 - 4.9 g/dL 4.4 4.4 Calcium 8.5 - 10.2 mg/dL 8.8 9.5 Bilirubin, Total 0.2 - 1.3 mg/dL 0.4 0.3 Alkaline Phosphatase 38 - 113 U/L 79 107 AST 14 - 40 U/L 22 16 Glucose 74 - 99 mg/dL 90 118 (H) BUN 9 - 24 mg/dL 18 17 Creatinine 0.73 - 1.22 mg/dL 0.80 0.82 Sodium 136 - 144 mmol/L 139 138 Potassium 3.7 - 5.1 mmol/L 3.8 4.7 Chloride 97 - 105 mmol/L 103 102 CO2 22 - 30 mmol/L 26 24 Anion Gap 9 - 18 mmol/L 10 12 ALT 10 - 54 U/L 25 24 eGFR- >60 eGFR-All Other Races . >60 eGFR >=60 mL/min/1.73m 104 Cholesterol, Total <200 mg/dL 247 (H) Triglyceride <150 mg/dL 173 (H) HDL Cholesterol >39 mg/dL 43 LDL Cholesterol <100 mg/dL 169 (H) Non HDL Cholesterol <130 mg/dL 204 (H) Fasting Time hrs 12 VLDL Cholesterol <30 mg/dL 35 (H) TC:HDL Ratio <5.10 5.74 (H) LDL:HDL Ratio <2.54 3.93 (H) Total Cholesterol, Nonfasting <200 mg/dL 197 216 (H) 282 (H) Triglycerides, Nonfasting <150 mg/dL 213 (H) 125 81 HDL Cholesterol, Nonfasting >39 mg/dL 43 54 57 LDL Cholesterol, Nonfasting <100 mg/dL 111 (H) 137 (H) 209 (H) Non HDL Cholesterol, Nonfasting <130 mg/dL 154 (H) 162 (H) 225 (H) VLDL Cholesterol, Nonfasting <30 mg/dL 43 (H) 25 16 Total Chol/HDL Ratio, Nonfasting <5.10 mg/dL 4.58 4.00 4.95 LDL/HDL Ratio, Nonfasting <2.54 mg/dL 2.58 (H) 2.54 (H) 3.67 (H) WSR 0 - 15 mm/hr 9 CRP <0.9 mg/dL 1.9 (H) ASSESSMENT/PLAN: 1. Encounter for immunization - ICD9: V03.89, ICD10: Z23- declined 2. Screening for colon cancer - ICD9: V76.51, ICD10: Z12.11 5 year recommended, last colonoscopy 2017. - CONSULT TO GENERAL SURGERY 3. Screening for prostate cancer - ICD9: V76.44, ICD10: Z12.5 without current complaints - PSA/PROSTATE SPECIFIC ANTIGEN SCREENING 4. Gastroesophageal reflux disease, unspecified whether esophagitis present - ICD9: 530.81, ICD10: K21.9 Stable, currently controlled, continue to monitor. 5. PEPE (obstructive sleep apnea) - ICD9: 327.23, ICD10: G47.33 Defers treatment at this time 6. Primary hypertension - ICD9: 401.9, ICD10: I10 Controlled - Continue current medications - Encouraged sodium restriction, DASH or Mediterranean diet - Recommend regular aerobic exercise 7. Hypercholesteremia - ICD9: 272.0, ICD10: E78.00 - COMPREHENSIVE METABOLIC PANEL - COMPLETE BLOOD COUNT AND DIFFERENTIAL - URIC ACID - MAGNESIUM - LIPID PANEL, NONFASTING 8. Nasal polyp - ICD9: 471.9, ICD10: J33.9 Resume tejinder garcia ENT appt - CONSULT TO ENT 9. Numbness and tingling in both hands - ICD9: 782.0, ICD10: R20.0, R20.2 Unclear etiology, does have prior history of numbness and tingling in hands and braces at home. Endorse using this for 6 weeks. Declines medication at this time. If not improving recommend further evaluation, orthopedic visit. Agnieszka Hines APRN.[employer] ASSESSMENT/PLAN: 1. Primary hypertension - ICD9: 401.9, ICD10: I10 (primary diagnosis) - suboptimal control Has not been taking medications. D/C HCTZ and lisinopril Start amlodipine 5mg daily - CBC + DIFF - COMP METABOLIC PANEL - HYDROCODONE 7.5 MG-ACETAMINOPHEN 325 MG TABLET 2. Encounter for immunization - ICD9: V03.89, ICD10: Z23 4. Hypercholesteremia - ICD9: 272.0, ICD10: E78.00 - COMP METABOLIC PANEL - LIPID PANEL, NONFASTING - SIMVASTATIN 40 MG TABLET 5. Gastroesophageal reflux disease, unspecified whether esophagitis present - ICD9: 530.81, ICD10: K21.9 - PANTOPRAZOLE 40 MG TABLET,DELAYED RELEASE 6. Localized swelling of finger of left hand - ICD9: 729.81, ICD10: R22.32 7. Pain in left hand - ICD9: 729.5, ICD10: M79.642 Concern for possible cellulitis vs gout or rheumatological disorder. - SED RATE WESTERGREN - C-REACTIVE PROTEIN (CRP) - CEPHALEXIN 500 MG CAPSULE - HYDROCODONE 7.5 MG-ACETAMINOPHEN 325 MG TABLET Labs today, 6-12 mo f/u MD Agnieszka Vázquez APRN.[employer]OK[employer] Medical Decision Making: Problems: Low: Acute, uncomplicated illness or injury Moderate: 2+ stable chronic illnesses Data: Unique test(s) ordered: 3+ Medical Decision Making Level: 4 - Moderate documented in this encounter [facility] 02-11-2024 Telephone encounter Note Patient has been identified by name and date of : Yes, Provider Ethel Sorenson RN Date 02/11/2024 Time 11:32 am Patient phones for refill(s): Requested Prescriptions Pending Prescriptions Disp Refills amLODIPine (NORVASC) 10 mg tablet 90 tablet 3 Sig: Take 1 tablet by mouth once daily. DOSE CHANGE, take one daily pantoprazole DR (PROTONIX) 40 mg tablet 90 tablet 3 Sig: Take 1 tablet by mouth once daily. rosuvastatin (CRESTOR) 5 mg tablet 90 tablet 3 Sig: Take 1 tablet by mouth once daily. Date of last office visit in primary care: 12/22/2022 Date of next office visit in primary care: 02/18/2024 Please advise. Thank you. Ethel Sorenson RN. [facility] 02-11-2024 Miscellaneous Notes Patient has been identified by name and date of : Yes, Provider Ethel Sorenson RN Date 02/11/2024 Time 11:32 am Patient phones for refill(s): Requested Prescriptions Pending Prescriptions Disp Refills amLODIPine (NORVASC) 10 mg tablet 90 tablet 3 Sig: Take 1 tablet by mouth once daily. DOSE CHANGE, take one daily pantoprazole DR (PROTONIX) 40 mg tablet 90 tablet 3 Sig: Take 1 tablet by mouth once daily. rosuvastatin (CRESTOR) 5 mg tablet 90 tablet 3 Sig: Take 1 tablet by mouth once daily. Date of last office visit in primary care: 12/22/2022 Date of next office visit in primary care: 02/18/2024 Please advise. Thank you. Ethel Sorenson RN. documented in this encounter [facility] 11-08-2023 Miscellaneous Notes Noted. Closing this note. New phone encounter can be opened if/when calls back with ingredients Spoke with and this is a [facility] brand. given message below. Jocy Hill LPN Is Deeproot a namebrand? If so, need to know the ingredients. Of Deeproot is the ingredient, I am not familiar with it so cannot give an opinion regarding its safety. calling and pt has gotten OTC vitamin Deeproot 500 mg gummies which supports heart, healthy blood flow. Pt has high blood pressure. Please advise pt if okay to take. Jocy Hill LPN documented in this encounter [facility] 07-25-2023 Miscellaneous Notes Spoke with patient. Given message from provider's office. Patient verbalizes understanding. Darlene Javier RN PAP order and pertinent information faxed to [employer]. Message left on patient's voicemail to call CC for update. Carmen Alaniz LPN Phone call placed to patient updated missed appointment with Dr. Strong 05/28/2023. Patient reported he was unaware of scheduled appointment with Dr. Strong , he would like Dr. Henson to handle, fax DME order. (There is prior encounter showing orders are on desk awaiting patient to provide covered DME company. Patient reported at this time he has not been able to contact his insurance company to provide needed information. Updated information forwarded to Dr. Henson office. Ana Hill LPN Patient called, said he received a message that he missed an appointment on 05/[address] Strong but patient is not sure why he was scheduled for this appointment because he said he already had his sleep test in December. He said sorry for confusion,can be reached at [phone] documented in this encounter [facility] 05-15-2023 Miscellaneous Notes Phone call to patient to inquire about DME supplier for his CPAP and supplies. Patient has yet to contact insurance to inquire. Pt will contact insurance and contact office back. Order for CPAP in [facility] nurse station. Linnea Felix MA documented in this encounter [facility] 03-26-2023 Miscellaneous Notes Patient had not called insurance to confirm which DME is in network with his insurance. Reminded patient to complete that and call office back of where he would like it sent to. Does he know which DME that he wants to send this to now? Insurance information copied and looking into DME companies that accept [employer]BS. Carmen Alaniz LPN Patient's request for medication is as follows: Requested Prescriptions Signed Prescriptions Disp Refills CPAP/BIPAP/OTHER 1 Each 0 Sig: Auto titrating PAP device 5-15 cmH2O with humidification, small ResMed AirFit P10 nasal pillows mask and clinical follow up with data download after 1 month to ensure the pressure range is appropriate. Authorizing Provider: LEE HENSON Prescription(s) printed as above. Please process accordingly. See which DME suppliers take his insurance and fax order. If APAP not tolerated, can try CPAP. Can refer tl Dr. Strong as needed. Download data and follow up in office after 1 month Patient contacted and given message below. Patient states he has never used APAP or CPAP but is interested. States he would like orders sent to any company that his insurance covers. Please call pt back with update. Thank you. IMPRESSION: At a PAP setting of 7 cmH2O, during which supine REM sleep was recorded, the apnea-hypopnea and arousal indices were normalized, snoring was eliminated, and the oxygen saturation was maintained above 91%. RECOMMENDATIONS: Auto titrating PAP device 5-15 cmH2O with humidification, small ResMed AirFit P10 nasal pillows mask and clinical follow up with data download after 1 month to ensure the pressure range is appropriate. If a fixed pressure is preferred, CPAP 7 cmH2O with humidification. As noted above, test confirms has PEPE and recommended APAP but could do CPAP if preferred. See if patient has a preference if willing to resume APAP or CPAP. Verify if needs new machine if so. Patient calls and states that he had sleep study done on 02/23/2023. Patient asking about the results from sleep study and what next steps are for this? Please review and advise, Jesica Ahumada RN documented in this encounter [facility] 03-19-2023 Miscellaneous Notes Called patient to discuss MRI results of his hand, he had some calcifications near his pinky digit and quite a bit of hand swelling. MRI is normal, calcifications are no longer present. The patient states that his swelling has resolved and he is doing much better. Given his history I suspect that he may be having flares of gout. Did suggest that he address this with his primary care provider. Happy to see him back if the hand is a problem in the future. Patient agrees to plan. documented in this encounter [facility] 03-15-2023 History of Present illness Narrative Radiology Service Progress Note PATIENT NAME: Christiano Butcher DATE OF SERVICE: March 15, 2023 TIME: 11:49 AM PATIENT IDENTITY VERIFICATION COMPLETED USING TWO (2) IDENTIFIERS: Name and Date of confirmed by patient verbally. FALL SCREENING: Has the patient had 2 falls in the last year or 1 fall with injury or currently using an Ambulatory Assistive Device (Walker, Cane, Wheelchair, Crutches, etc.)? No PATIENT GENDER DATA: Male PATIENT RELEVANT IMPLANT DATA REVIEWED: Yes RADIOLOGY DEPARTMENT: MR; Exam(s) Completed: Upper MSK: Hand, left PERIPHERAL IV DATA: Not applicable SIGNED BY: RT Beatrice(R) March 15, 2023 11:49 AM documented in this encounter [facility] 01-25-2023 History of Present illness Narrative . documented in this encounter [facility] 01-23-2023 Miscellaneous Notes Addended by: AGNIESZKA HINES on: 01/23/2023 12:46 PM Modules accepted: Orders, SmartSet OK, please schedule Please place order for the in lab sleep study. Thanks Deepti ROJAS Patient notified of sleep study results and would like to proceed with in lab study. Encounter routed to PSR to assist patient in scheduling. Please let him know that the HSAT shows at least moderate sleep apnea, and possible nighttime hypoxia versus artifact. An in lab sleep study or nocturnal pulse oximetry recommended to determine if hypoxia present. Would recommend a sleep study in lab if willing. documented in this encounter [facility] 01-23-2023 Miscellaneous Notes HSAT shows at least moderate sleep apnea, and possible nighttime hypoxia versus artifact. An in lab sleep study or nocturnal pulse oximetry recommended to determine if hypoxia present. documented in this encounter [facility] 01-09-2023 History of Present illness Narrative POPULATION HEALTH NAVIGATION OUTREACH Action/ 1ST CALL, PT SCHEDULED Patient Identified by Name and : YES, via phone Outreach Outcome/Action Spoke to patient / parent / legal guardian: Patient scheduled Did you use a PCP flex slot to schedule this appointment? No Reason for Outreach Care Gap or Scheduling/Wellness visits Payer: Payor: NISH / Plan: BLUE CARD PPO OOS / Product Type: PPO / Care Gap Reviewed:: Specialty Scheduling Reminder: Reminder note to check Health Maintenance for items below Health Maintenance items due: HEPATITIS B(1 of 3 - 3-dose series) Never done PNEUMOCOCCAL(1 - PCV) Never done BP CONTROLLED (<130/80) Never done SHINGRIX VACCINE(1 of 2) Never done COVID-19 VACCINE(3 - Booster for Pfizer series) due on 05/19/2021 ANNUAL PCP TEAM CHRONIC DISEASE VISIT due on 07/28/2022 COLORECTAL CANCER SCREENING due on 01/14/2023 Navigation Signature: Marie Grady January 09, 2023 12:27 PM documented in this encounter [facility] 01-08-2023 Miscellaneous Notes OK. Patient notified of providers message and verbalized understanding. Patient states he would like to repeat prednisone. Please sent prescription to [facility] in [place] Can repeat prednisone if needed. Route back to me if he would like to have this prescription. Schedule appointment with orthopedic provider Patient calls and states that his left hand was ok from 12/22 until yesterday. Patient states that hand is starting to hurt again. It is not red or very swollen. Patient is asking what provider recommendation were at last appointment. Advised patient that it was advised that patient go and see orthopedics. Patient agreeable to this. Please place referral order so that patient can get this scheduled quickly. Jesica Ahumada RN documented in this encounter [facility] 12-22-2022 Instructions Agnieszka Hines APRN.CNS - 12/22/2022 1:28 PM EDT Take cephalexin for 5 more days If your hand is not improved back to baseline would recommend seeing orthopedic provider Increase amlodipine to 10 mg/day Take two 5 mg amlodipine daily for now Continue with simvastatin for cholesterol. When this prescription is complete switch over to rosuvastatin Consider completing a home sleep study documented in this encounter [facility] 12-22-2022 History of Present illness Narrative SUBJECTIVE: HEPATITIS B(1 of 3 - 3-dose series) Never done PNEUMOCOCCAL(1 - PCV) Never done BP CONTROLLED (<130/80) Never done SHINGRIX VACCINE(1 of 2) Never done COVID-19 VACCINE(3 - Booster for Pfizer series) due on 05/19/2021 INFLUENZA(1) due on 06/01/2022 ANNUAL PCP TEAM CHRONIC DISEASE VISIT due on 07/28/2022 COLORECTAL CANCER SCREENING due on 01/14/2023 HPI Christiano Butcher is a 57 year old male. PMH significant for ACTIVE PROBLEM LIST Other Hammer Toe (Acquired) Esophageal Reflux Tobacco Use Disorder Primary Hypertension Hypercholesteremia Encounter for Long-Term (Current) Use of Medications Encounter for Screening for Malignant Neoplasm of Colon Gastroesophageal Reflux Disease Migraine Without Aura and Without Status Migrainosus, Not Intractable HPI excerpted from previous visit: Last seen 2020 internal medicine. He was seen 2022 [facility] for abdominal pain and urolithiasis. Seen 12/13/2022 UC for left hand pain. Treated with prednisone for presumed tendinitis. X-ray showed amorphous calcification adjacent to fifth metacarpal phalangeal joint. Today reports that his hand feels a bit better but continues with erythema pain decreased range of motion of fourth and fifth fingers and swelling. Notes he is left-handed. Notes he has to type and write at work. He reports not taking medications due to loss of insurance for a period of time. Today notes much less redness swelling and pain in his left hand. He noted a difference right away with cephalexin addition. Continues with pain in the left fifth finger primarily. HTN: Without report of headache, chest pain, palpitations, dyspnea, peripheral edema, orthopnea, fatigue and PND.No adverse effects on HCTZ, consistently taking Last 14 Encounter BP Readings: Date: BP: 12/13/2022 162/112 07/28/2021 132/96[trubp average[ 03/29/2020 160/90 10/29/2019 134/84 08/01/2019 128/88 07/21/2019 108/68 04/08/2019 152/100 04/19/2018 132/90 04/16/2018 122/78 02/13/2018 144/88 01/04/2018 122/83[#1 (from Extended Vitals)[ 12/26/2017 117/70 12/25/2017 133/88 12/11/2017 124/92[recheck[ PEPE: He notes concern about wearing something on his face and trouble sleeping away from his home so did not complete sleep study before STOP BANG Questionnaire 1. Snoring Do you snore loudly (louder than talking or loud enough to be heard through closed doors)? YES 2. Tired Do you often feel tired, fatigued, or sleepy during daytime? NO 3. Observed Has anyone observed you stop breathing during your sleep? YES 4. Blood Pressure Do you have or are you being treated for high blood pressure? YES 5. BMI BMI more than 35 kg/m2? NO 6. Age Age over 50 yr old? YES 7. Neck circumference Neck circumference greater than 40 cm? YES 42cm 8. Gender Gender male? YES * Neck circumference is measured by staff High risk of PEPE: answering yes to three or more items Low risk of PEPE: answering yes to less than three items Hyperlipidemia. has been out of medication for a while. His most recent lipid panels are: Cholesterol, Total (mg/dL) Date Value 07/26/2021 247 03/18/2020 226 Total Cholesterol, Nonfasting (mg/dL) Date Value 12/15/2022 282 10/26/2020 216 05/07/2020 197 HDL Cholesterol (mg/dL) Date Value 07/26/2021 43 03/18/2020 54 HDL Cholesterol, Nonfasting (mg/dL) Date Value 12/15/2022 57 10/26/2020 54 05/07/2020 43 LDL Cholesterol (mg/dL) Date Value 07/26/2021 169 03/18/2020 147 LDL Cholesterol, Nonfasting (mg/dL) Date Value 12/15/2022 209 10/26/2020 137 05/07/2020 111 Triglyceride (mg/dL) Date Value 07/26/2021 173 03/18/2020 123 Triglycerides, Nonfasting (mg/dL) Date Value 12/15/2022 81 10/26/2020 125 05/07/2020 213 Headache: without currently complaints. Notes history of heartburn / reflux. Controlled when takes PPI. No reported nausea vomiting abdominal pain diarrhea constipation. Review of Systems Constitutional: Negative. Respiratory: Negative. Cardiovascular: Negative. Musculoskeletal: Positive for arthralgias. Neurological: Negative. Objective BP 154/103 Pulse 93 Resp 16 Wt 89.4 kg (197 lb) BMI 28.67 kg/m Physical Exam Vitals and nursing note reviewed. Constitutional: Appearance: Normal appearance. HENT: Head: Normocephalic and atraumatic. Eyes: Conjunctiva/sclera: Conjunctivae normal. Neck: Thyroid: No thyromegaly. Vascular: Normal carotid pulses. No carotid bruit or JVD. Cardiovascular: Rate and Rhythm: Normal rate. Pulses: Carotid pulses are 2+ on the right side and 2+ on the left side. Radial pulses are 2+ on the right side and 2+ on the left side. Heart sounds: Normal heart sounds. Abdominal: General: Bowel sounds are normal. Palpations: Abdomen is soft. Musculoskeletal: Left hand: Swelling and tenderness present. Decreased range of motion. Decreased strength. Normal capillary refill. Normal pulse. Cervical back: No tenderness. Right lower leg: No edema. Left lower leg: No edema. Comments: significantly decreased swelling and erythema. At left 5th finger and base only now decreased range of motion and strength due to pain Skin: General: Skin is warm and dry. Neurological: General: No focal deficit present. Mental Status: He is alert and oriented to person, place, and time. ALLERGIES Allergen Reactions Chantix [Vareniclin* Intolerance Decreased mood Lipitor [Atorvastat* Intolerance muscle aches, joint aches, fatigue, GI upset Medications pantoprazole DR (PROTONIX) 40 mg tablet Take 1 tablet by mouth once daily. HYDROcodone-Acetaminophen (NORCO) 7.5-325 mg per tablet Take 1 tablet by mouth at bedtime as needed for pain for up to 7 days. predniSONE (DELTASONE) 10 mg tablet Take 4 tabs daily for 3 days, then 2 tabs daily for 3 days, then 1 tab daily for 3 days with food. amLODIPine (NORVASC) 10 mg tablet Take 1 tablet by mouth once daily. DOSE CHANGE, take one daily cephALEXin (KEFLEX) 500 mg capsule Take 1 capsule by mouth four times daily for 5 days. Take with food [START ON 03/17/2023] rosuvastatin (CRESTOR) 5 mg tablet Take 1 tablet by mouth once daily. PAST MEDICAL HISTORY Diagnosis Date Esophageal reflux 05/14/2008 Essential hypertension, benign borderline Tobacco use disorder 05/14/2008 Unspecified essential hypertension 05/14/2008 Social History Tobacco Use Smoking status: Every Day Packs/day: 0.50 Years: 32.00 Pack years: 16.00 Types: Cigarettes Smokeless tobacco: Never Tobacco comments: down to 1/2 to 3/4 PPD Substance Use Topics Alcohol use: Yes Comment: occassional liquor Drug use: No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 Frida Peace PA-C [address] [place] [address] [place] [address] Referral ID Status Reason Start Date Expiration Date V isits Requested Visits Authorized [id number] Closed Auto-Generate d Referral 03/02/2023 09/30/2023 1 1 Specialty Diagnoses / Procedures Referred By Contac t Referred To Contact Orthopedics Diagnoses Numbness and tingling in both hands Procedures CONSULT TO ORTHOPAEDICS OFFICE/OUTPATIENT [facility] 60 MINUTES HinesAgnieszka dobbs, [employer]ODUCTION [employer]ER.MILLED RICE [employer]OKER [address] [place] [address] Referral ID Status Reason Start Date Expiration Date Visits Requested Visits Authorized [id number] Authorized PCP Requested Referral 02/18/2024 02/17/2025 1 1 Specialty Diagnoses / Procedures Referred By Contac t Referred To Contact General Surgery Diagnoses Screening for colon cancer Procedures CONSULT TO GENERAL SURGERY OFFICE/OUTPATIENT [facility] 60 MINUTES HinesAgnieszka dobbs, [employer]ODUCTION [employer]OUND [employer]ER.MILLED RICE [employer]OK[employer] [address] [place] [address] Referral ID Status Reason Start Date Expiration Date Visits Requested Visits Authorized [id number] Authorized PCP Requested Referral 02/18/2024 02/17/2025 1 1 Specialty Diagnoses / Procedures Referred By Contac t Referred To Contact Ent - Otolaryngology Diagnoses Nasal polyp Procedures CONSULT TO ENT OFFICE/OUTPATIENT [facility] 60 MINUTES HinesAgnieszka dobbs, [employer]ODUCTION SOUND [employer]ER.MILLED RICE BROKER [address] [place] [address] Referral ID Status Reason Start Date Expiration Date Visits Requested Visits Authorized [id number] Authorized PCP Requested Referral 02/18/2024 02/17/2025 1 1 Specialty Diagnoses / Procedures Referred By Contac t Referred To Contact Vascular Medicine Diagnoses Infrarenal abdominal aortic aneurysm (AAA) without rupture (HCC) Procedures CONSULT TO VASCULAR MEDICINE OFFICE/OUTPATIENT [facility] 60 MINUTES Agnieszka Hines, PRODUCTION SOUND MIXER.[facility] [address] [place] [address] Referral ID Status Reason Start Date Expiration Date Visits Requested Visits Authorized [id number] Authorized PCP Requested Referral 07/01/2024 07/01/2025 1 1 Specialty Diagnoses / Procedures Referred By Contac t Referred To Contact Urology Diagnoses Renal calculus Procedures CONSULT TO UROLOGY OFFICE/OUTPATIENT [facility] 60 MINUTES HinesAgnieszka dobbs, PRODUCTION SOUND MIXER.[facility] [address] [place] [address] Referral ID Status Reason Start Date Expiration Date Visits Requested Visits Authorized [id number] Authorized PCP Requested Referral 07/01/2024 07/01/2025 1 1 Specialty Diagnoses / Procedures Referred By Contac t Referred To Contact CT IMAGING Diagnoses Calculus of ureter Procedures CT FLANK WO IVCON CT ABD & PELVIS W/O CONTRAST Ervin Nelson PA-C [address] [place] [address] Ct [facility] [place] [address] Referral ID Status Reason Start Date Expiration Date Visits Requested Visits Authorized [id number] Additional Clinical Info Needed Auto-Genera gil Referral Patient Cleared - Admin/Chair man/Directo r advise to proceed or did not respond 08/09/2025 1 1 Specialty Diagnoses / Procedures Referred By Contac t Referred To Contact Diagnoses Nephrolithiasis Procedures REFER TO PACC / [facility] - PREOPERATIVE OPTIMIZATION OFFICE/OUTPATIENT [facility] 60 MINUTES Mayte Lyons MD [address] [place] [address] Referral ID Status Reason Start Date Expiration Date Visits Requested Visits Authorized [id number] Authorized PCP Requested Referral 4 07/10/2025 1 1 Referral ID Status Reason Start Date Expiration Date V isits Requested Visits Authorized [id number] Closed Auto-Generat ed Referral Patient Cleared - Admin/Chairm an/Director advise to proceed or did not respond 07/11/2024 09/30/2024 1 1 Summary Purpose Family History No Family History Records FoundNo Family History Records FoundNo Family History Records FoundNo Family History Records FoundNo Family History Records Found Additional Source Comments Goals (unrecognized section and content) Goals may be documented in a n alternate section Source Comments (unrecognize d section and content) In the event this informatio n is protected by the Federal Confidentiality of Alcohol and Drug Abuse Patient Records regulations: The Federal rules restrict any use of the information to criminally investigate or prosecute any alcohol or drug abuse patient.[facility] Company[facility] the event this information is protected by the Federal Confidentiality of Alcohol and Drug Abuse Patient Records regulations: The Federal rules restrict any use of the information to criminally investigate or prosecute any alcohol or drug abuse patient.[facility] CompanyIn the event this information is protected by the Federal Confidentiality of Alcohol and Drug Abuse Patient Records regulations: The Federal rules restrict any use of the information to criminally investigate or prosecute any alcohol or drug abuse patient.[facility] CompanyIn the event this information is protected by the Federal Confidentiality of Alcohol and Drug Abuse Patient Records regulations: The Federal rules restrict any use of the information to criminally investigate or prosecute any alcohol or drug abuse patient.[facility] CompanyIn the event this information is protected by the Federal Confidentiality of Alcohol and Drug Abuse Patient Records regulations: The Federal rules restrict any use of the information to criminally investigate or prosecute any alcohol or drug abuse patient.[facility] CompanyIn the event this information is protected by the Federal Confidentiality of Alcohol and Drug Abuse Patient Records regulations: The Federal rules restrict any use of the information to criminally investigate or prosecute any alcohol or drug abuse patient.[facility] CompanyIn the event this information is protected by the Federal Confidentiality of Alcohol and Drug Abuse Patient Records regulations: The Federal rules restrict any use of the information to criminally investigate or prosecute any alcohol or drug abuse patient.[facility] CompanyIn the event this information is protected by the Federal Confidentiality of Alcohol and Drug Abuse Patient Records regulations: The Federal rules restrict any use of the information to criminally investigate or prosecute any alcohol or drug abuse patient.[facility] CompanyIn the event this information is protected by the Federal Confidentiality of Alcohol and Drug Abuse Patient Records regulations: The Federal rules restrict any use of the information to criminally investigate or prosecute any alcohol or drug abuse patient.[facility] CompanyIn the event this information is protected by the Federal Confidentiality of Alcohol and Drug Abuse Patient Records regulations: The Federal rules restrict any use of the information to criminally investigate or prosecute any alcohol or drug abuse patient.[facility] CompanyIn the event this information is protected by the Federal Confidentiality of Alcohol and Drug Abuse Patient Records regulations: The Federal rules restrict any use of the information to criminally investigate or prosecute any alcohol or drug abuse patient.[facility] CompanyIn the event this information is protected by the Federal Confidentiality of Alcohol and Drug Abuse Patient Records regulations: The Federal rules restrict any use of the information to criminally investigate or prosecute any alcohol or drug abuse patient.[facility] CompanyIn the event this information is protected by the Federal Confidentiality of Alcohol and Drug Abuse Patient Records regulations: The Federal rules restrict any use of the information to criminally investigate or prosecute any alcohol or drug abuse patient.[facility] CompanyIn the event this information is protected by the Federal Confidentiality of Alcohol and Drug Abuse Patient Records regulations: The Federal rules restrict any use of the information to criminally investigate or prosecute any alcohol or drug abuse patient.[facility] CompanyIn the event this information is protected by the Federal Confidentiality of Alcohol and Drug Abuse Patient Records regulations: The Federal rules restrict any use of the information to criminally investigate or prosecute any alcohol or drug abuse patient.[facility] CompanyIn the event this information is protected by the Federal Confidentiality of Alcohol and Drug Abuse Patient Records regulations: The Federal rules restrict any use of the information to criminally investigate or prosecute any alcohol or drug abuse patient.[facility] CompanyIn the event this information is protected by the Federal Confidentiality of Alcohol and Drug Abuse Patient Records regulations: The Federal rules restrict any use of the information to criminally investigate or prosecute any alcohol or drug abuse patient.[facility] CompanyIn the event this information is protected by the Federal Confidentiality of Alcohol and Drug Abuse Patient Records regulations: The Federal rules restrict any use of the information to criminally investigate or prosecute any alcohol or drug abuse patient.[facility] CompanyIn the event this information is protected by the Federal Confidentiality of Alcohol and Drug Abuse Patient Records regulations: The Federal rules restrict any use of the information to criminally investigate or prosecute any alcohol or drug abuse patient.[facility] CompanyIn the event this information is protected by the Federal Confidentiality of Alcohol and Drug Abuse Patient Records regulations: The Federal rules restrict any use of the information to criminally investigate or prosecute any alcohol or drug abuse patient.[facility] CompanyIn the event this information is protected by the Federal Confidentiality of Alcohol and Drug Abuse Patient Records regulations: The Federal rules restrict any use of the information to criminally investigate or prosecute any alcohol or drug abuse patient.[facility] CompanyIn the event this information is protected by the Federal Confidentiality of Alcohol and Drug Abuse Patient Records regulations: The Federal rules restrict any use of the information to criminally investigate or prosecute any alcohol or drug abuse patient.[facility]In the event this information is protected by the Federal Confidentiality of Alcohol and Drug Abuse Patient Records regulations: The Federal rules restrict any use of the information to criminally investigate or prosecute any alcohol or drug abuse patient.[facility] CompanyIn the event this information is protected by the Federal Confidentiality of Alcohol and Drug Abuse Patient Records regulations: The Federal rules restrict any use of the information to criminally investigate or prosecute any alcohol or drug abuse patient.[facility] CompanyIn the event this information is protected by the Federal Confidentiality of Alcohol and Drug Abuse Patient Records regulations: The Federal rules restrict any use of the information to criminally investigate or prosecute any alcohol or drug abuse patient.[facility] CompanyIn the event this information is protected by the Federal Confidentiality of Alcohol and Drug Abuse Patient Records regulations: The Federal rules restrict any use of the information to criminally investigate or prosecute any alcohol or drug abuse patient.[facility] CompanyIn the event this information is protected by the Federal Confidentiality of Alcohol and Drug Abuse Patient Records regulations: The Federal rules restrict any use of the information to criminally investigate or prosecute any alcohol or drug abuse patient.[facility] CompanyIn the event this information is protected by the Federal Confidentiality of Alcohol and Drug Abuse Patient Records regulations: The Federal rules restrict any use of the information to criminally investigate or prosecute any alcohol or drug abuse patient.[facility] CompanyIn the event this information is protected by the Federal Confidentiality of Alcohol and Drug Abuse Patient Records regulations: The Federal rules restrict any use of the information to criminally investigate or prosecute any alcohol or drug abuse patient.[facility] CompanyIn the event this information is protected by the Federal Confidentiality of Alcohol and Drug Abuse Patient Records regulations: The Federal rules restrict any use of the information to criminally investigate or prosecute any alcohol or drug abuse patient.[facility] CompanyIn the event this information is protected by the Federal Confidentiality of Alcohol and Drug Abuse Patient Records regulations: The Federal rules restrict any use of the information to criminally investigate or prosecute any alcohol or drug abuse patient.[facility] CompanyIn the event this information is protected by the Federal Confidentiality of Alcohol and Drug Abuse Patient Records regulations: The Federal rules restrict any use of the information to criminally investigate or prosecute any alcohol or drug abuse patient.[facility] CompanyIn the event this information is protected by the Federal Confidentiality of Alcohol and Drug Abuse Patient Records regulations: The Federal rules restrict any use of the information to criminally investigate or prosecute any alcohol or drug abuse patient.[facility] CompanyIn the event this information is protected by the Federal Confidentiality of Alcohol and Drug Abuse Patient Records regulations: The Federal rules restrict any use of the information to criminally investigate or prosecute any alcohol or drug abuse patient.[facility] CompanyIn the event this information is protected by the Federal Confidentiality of Alcohol and Drug Abuse Patient Records regulations: The Federal rules restrict any use of the information to criminally investigate or prosecute any alcohol or drug abuse patient.[facility] CompanyIn the event this information is protected by the Federal Confidentiality of Alcohol and Drug Abuse Patient Records regulations: The Federal rules restrict any use of the information to criminally investigate or prosecute any alcohol or drug abuse patient.[facility] CompanyIn the event this information is protected by the Federal Confidentiality of Alcohol and Drug Abuse Patient Records regulations: The Federal rules restrict any use of the information to criminally investigate or prosecute any alcohol or drug abuse patient.[facility] CompanyIn the event this information is protected by the Federal Confidentiality of Alcohol and Drug Abuse Patient Records regulations: The Federal rules restrict any use of the information to criminally investigate or prosecute any alcohol or drug abuse patient.[facility] CompanyIn the event this information is protected by the Federal Confidentiality of Alcohol and Drug Abuse Patient Records regulations: The Federal rules restrict any use of the information to criminally investigate or prosecute any alcohol or drug abuse patient.[facility] CompanyIn the event this information is protected by the Federal Confidentiality of Alcohol and Drug Abuse Patient Records regulations: The Federal rules restrict any use of the information to criminally investigate or prosecute any alcohol or drug abuse patient.[facility] CompanyIn the event this information is protected by the Federal Confidentiality of Alcohol and Drug Abuse Patient Records regulations: The Federal rules restrict any use of the information to criminally investigate or prosecute any alcohol or drug abuse patient.[facility] CompanyIn the event this information is protected by the Federal Confidentiality of Alcohol and Drug Abuse Patient Records regulations: The Federal rules restrict any use of the information to criminally investigate or prosecute any alcohol or drug abuse patient.[facility] CompanyIn the event this information is protected by the Federal Confidentiality of Alcohol and Drug Abuse Patient Records regulations: The Federal rules restrict any use of the information to criminally investigate or prosecute any alcohol or drug abuse patient.[facility] CompanyIn the event this information is protected by the Federal Confidentiality of Alcohol and Drug Abuse Patient Records regulations: The Federal rules restrict any use of the information to criminally investigate or prosecute any alcohol or drug abuse patient.[facility] CompanyIn the event this information is protected by the Federal Confidentiality of Alcohol and Drug Abuse Patient Records regulations: The Federal rules restrict any use of the information to criminally investigate or prosecute any alcohol or drug abuse patient.[facility] CompanyIn the event this information is protected by the Federal Confidentiality of Alcohol and Drug Abuse Patient Records regulations: The Federal rules restrict any use of the information to criminally investigate or prosecute any alcohol or drug abuse patient.[facility] CompanyIn the event this information is protected by the Federal Confidentiality of Alcohol and Drug Abuse Patient Records regulations: The Federal rules restrict any use of the information to criminally investigate or prosecute any alcohol or drug abuse patient.[facility] CompanyIn the event this information is protected by the Federal Confidentiality of Alcohol and Drug Abuse Patient Records regulations: The Federal rules restrict any use of the information to criminally investigate or prosecute any alcohol or drug abuse patient.[facility] CompanyIn the event this information is protected by the Federal Confidentiality of Alcohol and Drug Abuse Patient Records regulations: The Federal rules restrict any use of the information to criminally investigate or prosecute any alcohol or drug abuse patient.[facility] Reason for Visit (unrecogniz ed section and content) Reason Comments Pain Left hand pain and s wollen x 1 day Reason Comments Follow Up Reason Comments Referral Request Orthopedic Referral for Left Hand Reason Comments Results HSAT Reason Comments Results Reason Comments Results - Sleep Study Reason Comments DME supplier for CPAP Reason Comments Patient Question Patient Update Specialty Diagnoses / Procedures Referred By Contac t Referred To Contact MR IMAGING Diagnoses Disorder of bone Procedures MRI HAND WO IVCON LEFT MRI UPPER EXTREMITY OTH THAN JT W/O CONTR Frida Peace PA-C [address] [place] [address] [place] [address] Referral ID Status Reason Start Date Expiration Date V isits Requested Visits Authorized [id number] Closed Auto-Generate d Referral 03/02/2023 09/30/2023 1 1 Reason Onset Date Comments Refill Request 02/11/2024 Reason Comments Yearly Exam Reason Comments Medication Problem Reason Comments Consult Screening for colon cancer Specialty Diagnoses / Procedures Referred By Contac t Referred To Contact General Surgery Diagnoses Screening for colon cancer Procedures CONSULT TO GENERAL SURGERY OFFICE/OUTPATIENT [facility] 60 MINUTES HinesAgnieszka dobbs, PRODUCTION SOUND MIXER.MILLED RICE [employer]OK[employer] [address] [place] [address] Referral ID Status Reason Start Date Expiration Date V isits Requested Visits Authorized [id number] Closed PCP Requested Referral 02/18/2024 02/17/2025 1 1 Reason Comments ER F/U Reason Comments Consult Left Kidney Stone Specialty Diagnoses / Procedures Referred By Contac t Referred To Contact Urology Diagnoses Renal calculus Procedures CONSULT TO UROLOGY OFFICE/OUTPATIENT [facility] 60 MINUTES HinesAgnieszka dobbs, PRODUCTION SOUND MIXER.MILLED RICE BROKER [address] [place] [address] Referral ID Status Reason Start Date Expiration Date V isits Requested Visits Authorized [id number] Closed PCP Requested Referral 07/01/2024 07/01/2025 1 1 Reason Comments Radiology US Specialty Diagnoses / Procedures Referred By Contac t Referred To Contact US IMAGING Diagnoses Renal calculus Calculus of ureter Procedures US KIDNEY/BLADDER US RETROPERITONEAL REAL TIME W/IMAGE COMPLETE OErvin Montejo PA-C [address] [facility] [place] [address] [place] [address] Referral ID Status Reason Start Date Expiration Date V isits Requested Visits Authorized [id number] Closed Auto-Generate d Referral 07/02/2024 08/01/2025 1 1 Reason Comments plan on kidney stone Reason Comments Living Nurse - Other Reason Comments Radiology CT Specialty Diagnoses / Procedures Referred By Contac t Referred To Contact CT IMAGING Diagnoses Calculus of ureter Procedures CT FLANK WO IVCON CT ABD & PELVIS W/O CONTRAST Ervin Nelson PA-C [address] [facility] [place] [address] [place] [address] Referral ID Status Reason Start Date Expiration Date V isits Requested Visits Authorized [id number] Closed Auto-Generat ed Referral Patient Cleared - Admin/Chairm an/Director advise to proceed or did not respond 07/11/2024 09/30/2024 1 1 Reason Comments Appointment Reason Comments Kidney Stones Reason Comments Kidney Stones Specialty Diagnoses / Procedures Referred By Contac t Referred To Contact Urology / UROLOGY Diagnoses Calculus of kidney Stent Removal *per Dr. Nam's message Procedures REMOVE & REPLACE INDWELL URETERAL STENT TRURTHRL REMOVAL INDWELLING URETERAL STENT PRQ STENT EXTRACTION Self Will Nam MD [address] [place] [address] Referral ID Status Reason Start Date Expiration Date Visits Re quested Visits Authorized [id number] Closed 07/25/2024 09/30/2024 1 1 Reason Comments Refill Request Reason Comments Consult Infrarenal abdominal aortic aneurysm without rupture - Referred by Agnieszka Hines Specialty Diagnoses / Procedures Referred By Contac t Referred To Contact Vascular Medicine / INITIAL DEPT Diagnoses Infrarenal abdominal aortic aneurysm (AAA) without rupture (HCC) Procedures CONSULT TO VASCULAR MEDICINE OFFICE/OUTPATIENT NEW HIGH MDM 60 MINUTES OFFICE/OUTPATIENT NEW MODERATE MDM 45 MINUTES Agnieszka Hines, PRODUCTION SOUND MIXER.MILLED RICE BROKER [address] [place] [address] [place] [address] Referral ID Status Reason Start Date Expiration Date V isits Requested Visits Authorized [id number] Closed PCP Requested Referral 07/29/2024 09/30/2024 1 1 Reason Comments Radiology US Specialty Diagnoses / Procedures Referred By Contac t Referred To Contact US IMAGING Diagnoses Hydronephrosis with ureteral calculus Procedures US KIDNEY/BLADDER US RETROPERITONEAL REAL TIME W/IMAGE COMPLETE Will Nam MD [address] [place] [address] [place] [address] Referral ID Status Reason Start Date Expiration Date V isits Requested Visits Authorized [id number] Closed Auto-Generate d Referral 08/08/2024 08/24/2025 1 1 Reason Comments new labs Reason Comments Follow Up Kidney Stones Reason Comments Ear Pain Left side of head, h ead sensitivity, sore throat, all left side x 2 days Reason Comments Physical pain in left 5th dig it from an injury when fell mowing 3 weeks ago Reason Comments Fracture 5 weeks post fractur e left 5th finger - Referred by Yoel CorbettrX-ray 02/25/25 - Last seen by Frida 02/13/23 Left hand pain New 5 weeks post fractur e left 5th finger - Referred by Yoel CleaverX-ray 02/25/25 - Last seen by Frida 02/13/23 Left hand pain Specialty Diagnoses / Procedures Referred By Massiel t Referred To Contact Orthopedics Diagnoses Injury of left little finger, initial encounter Closed nondisplaced fracture of middle phalanx of left little finger with routine healing, subsequent encounter Procedures CONSULT TO ORTHOPAEDICS OFFICE/OUTPATIENT NEW HIGH MDM 60 MINUTES Yoel Kemp APRN.REFRACTORY SPECIALIST [address] [place] [address] Phone: tel: fax: Referral ID Status Reason Start Date Expiration Date V isits Requested Visits Authorized [id number] Closed PCP Requested Referral 03/02/2025 03/02/2026 1 1 Reason Comments Established Patient Specialty Diagnoses / Procedures Referred By Contac t Referred To Contact US IMAGING Diagnoses Nephrolithiasis Procedures US KIDNEY/BLADDER US RETROPERITONEAL REAL TIME W/IMAGE COMPLETE Ervin Nelson PA-C [address] [place] [address] Phone: tel: fax: [place] [address] Referral ID Status Reason Start Date Expiration Date V isits Requested Visits Authorized [id number] Closed Auto-Generate d Referral 09/03/2024 10/03/2025 1 1 Reason Comments Cough Cough and chest ruperto estion x 1 week Reason Onset Date Comments Results 05/23/2025 Reason Comments Chest Congestion Shortness of Breath, headache, cough x 5 days Care Teams (unrecognized sec tion and content) Staff Development Nurse Relationship Specialty Start Date End Date Lee Henson MD [address] [place] [address] PCP - General 05/14/08 Staff Development Nurse Relationship Specialty Start Date End Date Lee Henson MD [address] [place] [address] PCP - General 05/14/08 Staff Development Nurse Relationship Specialty Start Date End Date Lee Henson MD [address] [place] [address] PCP - General 05/14/08 Staff Development Nurse Relationship Specialty Start Date End Date Lee Henson MD [address] [place] [address] [place] [address] PCP - General 05/14/08 Staff Development Nurse Relationship Specialty Start Date End Date Lee Henson MD [address] [place] [address] PCP - General 05/14/08 Staff Development Nurse Relationship Specialty Start Date End Date Lee Henson MD [address] [place] [address] [place] [address] PCP - General 05/14/08 Staff Development Nurse Relationship Specialty [place] [address] [place] [address] PCP - General 05/14/08 Staff Development Nurse Relationship Specialty Start Date End Date Lee Henson MD [address] [place] [address] PCP - General 05/14/08 Staff Development Nurse Relationship Specialty Start Date End Date Lee Henson MD [address] [place] [address] PCP - General 05/14/08 Staff Development Nurse Relationship Specialty Start Date End Date Lee Henson MD [address] [place] [address] PCP - General 05/14/08 Staff Development Nurse Relationship Specialty Start Date End Date Lee Henson MD [address] [place] [address] PCP - General 05/14/08 Staff Development Nurse Relationship Specialty Start Date End Date Lee Henson MD [address] [place] [address] PCP - General 05/14/08 Staff Development Nurse Relationship Specialty Start Date End Date Lee Henson MD [address] [place] [address] PCP - General 05/14/08 Staff Development Nurse Relationship Specialty Start Date End Date Lee Henson MD [address] [place] [address] PCP - General 05/14/08 Staff Development Nurse Relationship Specialty Start Date End Date Lee Henson MD [address] [place] [address] PCP - General 05/14/08 Staff Development Nurse Relationship Specialty Start Date End Date Lee Henson MD [address] [place] [address] PCP - General 05/14/08 Staff Development Nurse Relationship Specialty Start Date End Date Lee Henson MD [address] [place] [address] PCP - General 05/14/08 Staff Development Nurse Relationship Specialty Start Date End Date Lee Henson MD [address] [place] [address] PCP - General 05/14/08 Staff Development Nurse Relationship Specialty Start Date End Date Lee Henson MD [address] [place] [address] PCP - General 05/14/08 Staff Development Nurse Relationship Specialty Start Date End Date Lee Henson MD [address] [place] [address] PCP - General 05/14/08 Staff Development Nurse Relationship Specialty Start Date End Date Lee Henson MD [address] [place] [address] PCP - General 05/14/08 Staff Development Nurse Relationship Specialty Start Date End Date Lee Henson MD [address] [place] [address] PCP - General 05/14/08 Staff Development Nurse Relationship Specialty Start Date End Date Lee Henson MD [address] [place] [address] PCP - General 05/14/08 Staff Development Nurse Relationship Specialty Start Date End Date Lee Henson MD [address] [place] [address] PCP - General 05/14/08 Staff Development Nurse Relationship Specialty Start Date End Date Lee Henson MD [address] [place] [address] PCP - General 05/14/08 Staff Development Nurse Relationship Specialty Start Date End Date Lee Henson MD [address] [place] [address] PCP - General 05/14/08 Staff Development Nurse Relationship Specialty Start Date End Date Lee Henson MD [address] [place] [address] PCP - General 05/14/08 Staff Development Nurse Relationship Specialty Start Date End Date Lee Henson MD [address] [place] [address] PCP - General 05/14/08 Staff Development Nurse Relationship Specialty Start Date End Date Lee Henson MD [address] [place] [address] PCP - General 05/14/08 Staff Development Nurse Relationship Specialty Start Date End Date Lee Henson MD [address] [place] [address] PCP - General 05/14/08 Staff Development Nurse Relationship Specialty Start Date End Date Lee Henson MD [address] [place] [address] PCP - General 05/14/08 Agnieszka Hines, PRODUCTION SOUND MIXER.MILLED RICE BROKER [address] [place] [address] Risk Developer Internal Medicine 09/08/24 Yoel Kemp PRODUCTION SOUND MIXER.REFRACTORY SPECIALIST [address] [place] [address] Risk Developer Internal Medicine 09/08/24 Staff Development Nurse Relationship Specialty Start Date End Date Lee Henson MD [address] [place] [address] PCP - General 05/14/08 Agnieszka Hines, PRODUCTION SOUND MIXER.MILLED RICE BROKER [address] [place] [address] Risk Developer Internal Medicine 09/08/24 Yoel Kemp PRODUCTION SOUND MIXER.REFRACTORY SPECIALIST [address] [place] [address] Risk Developer Internal Medicine 09/08/24 Staff Development Nurse Relationship Specialty Start Date End Date Lee Henson MD [address] [place] [address] PCP - General 05/14/08 Agnieszka Hines, PRODUCTION SOUND MIXER.MILLED RICE BROKER [address] [place] [address] Risk Developer Internal Medicine 09/08/24 Yoel Kemp PRODUCTION SOUND MIXER.REFRACTORY SPECIALIST [address] [place] [address] Risk Developer Internal Medicine 12/23/24 Staff Development Nurse Relationship Specialty Start Date End Date Lee Henson MD [address] [place] [address] PCP - General 05/14/08 Yoel Kemp PRODUCTION SOUND MIXER.REFRACTORY SPECIALIST [address] [facility] [place] [address] Risk Developer Internal Medicine 12/23/24 Agnieszka Hines, PRODUCTION SOUND MIXER.MILLED RICE BROKER [address] [facility] [place] [address] Risk Developer Internal Medicine 02/18/25 Staff Development Nurse Relationship Specialty Start Date End Date Lee Henson MD [address] [facility] [place] [address] PCP - General 05/14/08 Yoel Kemp PRODUCTION SOUND MIXER.REFRACTORY SPECIALIST [address] [facility] [place] [address] Risk Developer Internal Medicine 12/23/24 Agnieszka Hines, PRODUCTION SOUND MIXER.MILLED RICE BROKER [address] [place] [address] Risk Developer Internal Medicine 02/18/25 Staff Development Nurse Relationship Specialty Start Date End Date Lee Henson MD [address] [place] [address] PCP - General 05/14/08 Yoel Kemp PRODUCTION SOUND MIXER.REFRACTORY SPECIALIST [address] [facility] [place] [address] Risk Developer Internal Medicine 12/23/24 Agnieszka Hines, PRODUCTION SOUND MIXER.MILLED RICE BROKER [address] [facility] [place] [address] Risk Developer Internal Medicine 02/18/25 Staff Development Nurse Relationship Specialty Start Date End Date Lee Henson MD [address] [place] [address] PCP - General 05/14/08 Yoel Kemp PRODUCTION SOUND MIXER.REFRACTORY SPECIALIST [address] [place] [address] Risk Developer Internal Medicine 12/23/24 Agnieszka Hines, PRODUCTION SOUND MIXER.MILLED RICE BROKER [address] [facility] [place] [address] Risk Developer Internal Medicine 02/18/25 Staff Development Nurse Relationship Specialty Start Date End Date Lee Henson MD [address] [place] [address] PCP - General 05/14/08 Yoel Kemp PRODUCTION SOUND MIXER.REFRACTORY SPECIALIST [address] [place] [address] Risk Developer Internal Medicine 12/23/24 Agnieszka Hines, PRODUCTION SOUND MIXER.MILLED RICE BROKER [address] [place] [address] Risk Developer Internal Medicine 02/18/25 Staff Development Nurse Relationship Specialty Start Date End Date Lee Henson MD [address] [place] [address] PCP - General 05/14/08 Yoel Kemp PRODUCTION SOUND MIXER.REFRACTORY SPECIALIST [address] [place] [address] Risk Developer Internal Medicine 12/23/24 Agnieszka Hines, PRODUCTION SOUND MIXER.MILLED RICE BROKER [address] [place] [address] [facility] Internal Medicine 02/18/25 Staff Development Nurse Relationship Specialty Start Date End Date Lee Henson MD [address] [place] [address] PCP - General 05/14/08 Yoel Kemp PRODUCTION SOUND MIXER.REFRACTORY SPECIALIST [address] [place] [address] Risk Developer Internal Medicine 12/23/24 Agnieszka Hines, PRODUCTION SOUND MIXER.MILLED RICE BROKER [address] [place] [address] [facility] Internal Medicine 02/18/25 Staff Development Nurse Relationship Specialty Start Date End Date Lee Henson MD [address] [place] [address] PCP - General 05/14/08 Yoel Kemp PRODUCTION SOUND MIXER.REFRACTORY SPECIALIST [address] [place] [address] [facility] Internal Medicine 12/23/24 Agnieszka Hines, PRODUCTION SOUND MIXER.MILLED RICE BROKER [address] [place] [address] [facility] Internal Medicine 02/18/25 Staff Development Nurse Relationship Specialty Start Date End Date Lee Henson MD [address] [place] [address] PCP - General 05/14/08 Viridiana, Yoel, PRODUCTION SOUND MIXER.REFRACTORY SPECIALIST [address] [facility] [place] [address] Risk Developer Internal Medicine 12/23/24 Agnieszka Hines, PRODUCTION SOUND MIXER.MILLED RICE BROKER [address] [place] [address] Risk Developer Internal Medicine 02/18/25 (unrecognized sect ion and content) No Status Records FoundNo Status Records FoundNo Status Records FoundNo Status Records FoundNo Status Records Found INFORMATION SOURCE (unrecogn ized section and content) DATE CREATED AUTHOR 03/09/2023 [facility] DATE CREATED AUTHOR AUTHOR'S ORGANIZ ATION 07/20/2024 [facility] DATE CREATED AUTHOR AUTHOR'S ORGANIZ ATION 07/28/2024 [facility] DATE CREATED AUTHOR AUTHOR'S ORGANIZ ATION 08/01/2024 [facility] DATE CREATED AUTHOR AUTHOR'S ORGANIZ ATION 05/29/2025 [facility] FOR RECORDS PERTAINING TO PATIENTS WHO ARE OR HAVE BEEN ENROLLED IN A CHEMICAL DEPENDENCY/SUBSTANCEABUSE PROGRAM, SOME INFORMATION MAY BE OMITTED. This clinical summary was aggregated from multiple sources. Caution should be exercised in using it in the provision of clinical care. This summary normalizes information from multiple sources, and as a consequence, information in this document may materially change the coding, format and clinical context of patient data. In addition, data may be omitted in some cases. CLINICAL DECISIONS SHOULD BE BASED ON THE PRIMARY CLINICAL RECORDS. [employer] provides no warranty or guarantee of the accuracy or completeness of information in this document.
[2025-07-05 20:00] VITALS: PULSE 74; RESP 17; O2SAT 100
[2025-07-05] MEDS: Famotidine 200 MG/20 ML MDV 20 MG in 0.9% Normal Saline (Pres. free 8 ML 300 MG IV (20:00)
[2025-07-05 20:30] LABS: Troponin T High Sens 2 HR 6 ng/L (<=22)
[2025-07-05 21:00] VITALS: PULSE 68; RESP 17; O2SAT 97
[2025-07-05 21:35] VITALS: BP 144/93; PULSE 68; RESP 17; TEMP 36.2; O2SAT 97
== END 2025-07-05 21:39 | disposition home or self-care (01) ==
PROVIDERS: Emergency Provider Emergency Medicine; PCP Internal Medicine; Visit Provider Emergency Medicine
DX: R07.9 Chest pain, unspecified (principal); E78.5 Hyperlipidemia, unspecified; I10 Essential (primary) hypertension; K21.9 Gastro-esophageal reflux disease without esophagitis; Z79.899 Other long term (current) drug therapy; F17.200 Nicotine dependence, unspecified, uncomplicated
CPT/HCPCS: 71046; 80048; 84484; 85025; 93005; 96365; 96375; 99284; A4216; J2405